=== PATIENT | male | born 1970 | race Caucasian/White ===

== ENCOUNTER 2023-05-18 16:05 | Emergency (ER) | payer OTHER, SELFPAY ==
[2023-05-18 16:12] VITALS: BP 130/102
[2023-05-18 16:44] LABS: % Basophils 0.8 % (0-2); % Eosinophils 3.6 % (0-6); % Immature Granulocytes 0.2 % (0-0.5); % Monocytes 7.7 % (1.7-9.3); % Neutrophils 69.7 % (42.2-75.2); Absolute Eosinophils 0.2 10^3/uL (0-0.7); Absolute Lymphocytes 0.9 10^3/uL (1.2-3.4); Absolute Monocytes 0.4 10^3/uL (0.1-0.6); Absolute Neutrophils 3.6 10^3/uL (1.4-6.5); Hematocrit 46.7 % (39.0-52.0); Hemoglobin 16.9 g/dL (13.0-18.0); Mean Corp Hgb Conc. 36.2 g/dL (33.0-37.0); Mean Corpuscular Hgb 29.6 pg (27.0-31.0); Mean Corpuscular Volume 81.9 fL (80.0-94.0); Nucleated Red Blood Cells % 0 % (-); Platelet Count 208 10^3/uL (130-400); White Blood Cell Count 5.2 10^3/uL (4.8-10.8)
[2023-05-18 16:57] LABS: ALT (SGPT) 77 U/L (0-50); AST (SGOT) 50 U/L (17-59); Albumin 4.6 g/dl (3.5-5.0); Alkaline Phosphatase 55 U/L (38-126); Blood Urea Nitrogen 19 mg/dl (9-20); Calcium 9.6 mg/dl (8.4-10.2); Carbon Dioxide 28 mmol/L (22-30); Chloride 104 mmol/L (98-107); Glucose 136 mg/dl (70-99); Lipase 56 U/L (23-300); Potassium 4.4 mmol/L (3.5-5.1); Sodium 137 mmol/L (135-145); Total Bilirubin 2.1 mg/dl (0.2-1.3); Total Protein 6.8 g/dl (6.3-8.2); eGFR > 60.00
[2023-05-18 17:04] LABS: Troponin I < 0.012 ng/ml
[2023-05-18 20:23] VITALS: BP 146/106
[2023-05-18] MEDS: NSS 1000 IV (20:37)
[2023-05-18 20:41] LABS: Urine Albumin Negative (Neg - Trace); Urine Bilirubin Negative (Negative); Urine Character Clear (Clear); Urine Color Amber; Urine Glucose Negative (Negative); Urine Ketone Trace (Negative); Urine Leukocyte Negative (Negative); Urine Nitrite Negative (Negative); Urine Occult Blood Negative (Negative); Urine Specific Gravity 1.025 (<1.030); Urine Urobilinogen Negative (Neg - 1+)
[2023-05-18 21:59] VITALS: BP 135/94
--- NOTE | 2023-05-18 23:57 | ED.GENMED ---
History of Present Illness
General
Chief Complaint: Fatigue
Source: patient
Exam Limitations: none
Time Seen by Provider: 05/18/23 20:11
Travel History
Have you had any contact with someone who has COVID-19?: No
Do you have any symptoms of coronavirus? Fever > 100 degrees, chills, cough, shortness of breath, sore throat, loss of taste or smell, muscle aches, or headache?: No
History of Present Illness
History of Present Illness:
Patient to ED with complaint of dizziness. States he was diagnosed with an ear infection last week. Placed on Cefdinir. Ear is better but now with dizziness. Denies headache or blurred vision. Denies fever/chills. No prior history of same.
Past History
Past History
ED Past Medical History: None
ED Past Surgical History: None
Review of Systems
Review of Systems
Allergies reviewed?: Yes
All Other Systems: ROS reviewed and negative except as documented in HPI and ROS
Constitutional: Reports no symptoms
EENT: Reports no symptoms
Respiratory: Reports no symptoms
Cardiac: Reports no symptoms
ABD/GI: Reports no symptoms
Musculoskeletal: Reports no symptoms
Skin: Reports no symptoms
Neurological: Reports dizzy
Psychiatric: Reports no symptoms
Phy Exam
General Physical Exam
General Presentation: well appearing and no apparent distress
General age: appears stated age
General Skin: warm and dry
General Habitus: normal
General Mental: alert
ENT Exam
ENT Exam: EOMI, TM's normal, pharynx normal, neck supple, normocephalic and swallowing well
Cardiovascular Exam
Cardiovascular Exam: regular rate/rhythm and no edema
Pulmonary Exam
Pulmonary Exam: lungs clear and no respiratory distress
Neurological Exam
Neurological Exam: alert, oriented x3, CN II-XII intact, no motor deficits, no sensory deficits, speech normal and normal gait
Musculoskeletal Exam
Musculoskeletal Exam: full ROM
Skin Exam
Skin Exam: normal color, warm/dry and no rash
Psychiatric Exam
Psychiatric Exam: normal mood/affect
Course
Orders/Labs/Results
Orders:
Orders
05/18/23 16:16
Electrocardiogram (*1) Urgent
Reason for Study: Vertigo / Dizzy
05/18/23 16:17
CT Head W/o Iv Contrast Urgent
Comment:
Reason For Exam: dizziness
EKG- Treatment ONCE
05/18/23 16:25
Complete Blood Count/With Diff Urgent
Comprehensive Metabolic Panel Urgent
Lipase Urgent
Troponin I Urgent
05/18/23 20:22
0.9% Sodium Chloride 1000 ml [Nss] 1,000 ml IV BOLUS
05/18/23 20:24
Urinalysis Reflex To Culture Urgent
Date Specimen was Collected: 05/18/23
Time Specimen was Collected: 16:17
US Abdomen Complete/Upper Urgent
Comment:
Reason For Exam: N/V/ELEVATED TBILI
Abnormal Lab Results
05/18/23 05/18/23
16:25 20:24
Absolute Lymphs (auto) 0.9 L 10^3/uL
(1.2-3.4)
Lymphocytes % 18.0 L %
(20.5-51.1)
Glucose 136 H mg/dl
(70-99)
Total Bilirubin 2.1 H mg/dl
(0.2-1.3)
ALT 77 H U/L
(0-50)
Urine Ketones Trace A
(Negative)
05/18/23 16:25
05/18/23 16:25
Vital Signs
Initial and Last Documented VS:
Initial Vital Signs
Temp Pulse Resp BP Pulse Ox
98.3 F 103 18 130/102 98
05/18/23 16:12 05/18/23 16:12 05/18/23 16:12 05/18/23 16:12 05/18/23 16:12
Last Documented Vital Signs
Temp Pulse Resp BP Pulse Ox
98.3 F 88 18 135/94 99
05/18/23 16:12 05/18/23 21:59 05/18/23 21:59 05/18/23 21:59 05/18/23 21:59
*Radiology
Radiology exam reviewed: radiology read reviewed
*Pulse Oximetry
Patient hypoxic: no
*Critical Care Note
Total Time (30-74mins, 75-104mins- exclusive of procedures): Not Applicable
ED Attending Note
-
Portions of this chart may have been created with voice recognition software.� Occasional wrong word or��sound alike� substitutions may have occurred due to the inherent limitations of voice recognition software.
Discharge Plan
Departure
Patient Disposition: Home (Routine Discharge)
Date of Disposition: 05/18/23
Time of Disposition: 21:59
Patient with high blood pressure during this ER visit?: No
Condition: Good
Covid-19: Not Applicable
Discharge Problem:
Sinusitis
Instructions: Sinusitis in adults
Prescriptions:
New
cefdinir 300 mg capsule
300 mg PO BID Qty: 10 0RF
triamcinolone acetonide [Nasacort] 55 mcg aerosol,spray
2 spray intranasal DAILY Qty: 16.9 0RF
Referrals:
NONE,* [Family Provider] -
Interventions
Interventions:
*Risk Screen - Suicide Last Done: 05/18/23 16:12
*General Assessment Last Done: 05/18/23 16:12
*Nursing Disposition Last Done: 05/18/23 22:21
Discharge Date and Time
Discharge Date/Time: 05/18/23 22:22
== END 2023-05-18 22:22 | disposition home or self-care (01) ==
LOC: EMR 16:05
PROVIDERS: EMERGENCY PHYSICIAN Emergency Medicine
DX: J32.9 Chronic sinusitis, unspecified (principal)
CPT/HCPCS: 99284; 96360; 70450; 76700; 80053; 81003; 83690; 84484; 85025; 93005

== ENCOUNTER 2023-05-31 15:02 | Inpatient (IN) | payer OTHER, SELFPAY ==
[2023-05-31] VITALS (13 sets, daily range): BP systolic 130–153; BP diastolic 79–116; BMI 39.4; BMI 38.3
--- NOTE | 2023-05-31 08:25 | ED.GENMED ---
History of Present Illness
<Consuelo Red PA-C - Last Filed: 05/31/23 15:42>
General
Chief Complaint: Weakness
Source: patient and family
Exam Limitations: none
Time Seen by Provider: 05/31/23 07:48
Nursing documentation reviewed up to this point in time: agreed with
Travel History
Have you had any contact with someone who has COVID-19?: No
Do you have any symptoms of coronavirus? Fever > 100 degrees, chills, cough, shortness of breath, sore throat, loss of taste or smell, muscle aches, or headache?: No
History of Present Illness
History of Present Illness:
52-year-old male with previously no medical problems presents for complicated ongoing issues associated with dizziness, poor balance and now right leg weakness
Patient says he traveled to and from [place] beginning of this month and by 3�6 [facility] complaints of bodyaches, feeling tired, dizziness and nausea and vomiting. At that time it sounds like they did some screening
labs and ultimately determined that he had otitis media and was given cefdinir and Zofran for vomiting. He had a follow-up on . He is really unable to recount the details between the and the to tell me whether he got much better or
continue to vomit, he did say that he had a lot of nausea and decreased appetite but does not believe that he had ongoing vomiting at that time. On the [facility] they document that he had orthostatic
hypotension and added meclizine and Medrol Dosepak. They told him that his EKG and labs looked okay. By 3�13 he came to this ER where he complained he was still having dizziness and fatigue. He never describes the dizziness as being a room
spinning sensation but that he feels off balance and it occurs when he changes position and gets up and is better when he is laying down. At that time he had labs and EKG and a head CT and an ultrasound of his upper abdomen. The labs show that his
total bilirubin was 2.1 and his ALT was slightly high so he had an ultrasound which showed gallstones, hepatic steatosis and splenomegaly. His head CT showed paranasal sinusitis and the patient was thus again placed on cefdinir and a steroid nasal
spray. He was told to follow-up with ENT which she did on 3�18 at [facility]. By that point he was using a cane to help him walk. Patient says that he did not actually recall when he started having leg weakness but his mom who is now here with
him says that he started using a cane when she dropped him off for that appointment because it was going to be a long way from the car to the office. With the cane he was able to still walk and looked okay doing it. At the ENT he had an evaluation
of his nasal passages and pharynx and was ultimately told to start a prednisone taper, 30 mg once a day for 4 days, 20 mg once a day for 4 days and 10 mg once a day for 4 days it has only been 8 days and the patient has no more prednisone in his
bottle and thus did not follow the instructions correctly. He believes he took his last 1 this today.
Within the last 3 or 4 days he really has noticed worsening progressive weakness in his right leg where his knee gives out and he feels like it is unable to support his weight. He actually fell 2 days ago and did hit his head but did not blackout.
His mom has been extremely worried about him. He is not been evaluated since the ENT office visit and today she went in to check on him at 4 AM and he really had no strength in his right leg. When she got him up to go to the bathroom this morning
he again fell. He had no injuries from his fall today. That is when they called 911. Patient has not had any urinary or bowel incontinence or retention, he has had no subjective fevers or chills, headache, double vision blurred vision, neck pain,
chest pain or shortness of breath, ongoing abdominal pain or persistent vomiting, paresthesias. Patient does not drink alcohol.
Past History
<Consuelo Red PA-C - Last Filed: 05/31/23 15:42>
Past History
ED Past Medical History: None
ED Past Surgical History: None
Social History
Tobacco: Non-smoker
Alcohol: None
Drug: None
Personal: Single
Living: with family
Employment: Employed
Review of Systems
<WILL Willard Last Filed: 05/31/23 15:42>
Review of Systems
Allergies reviewed?: Yes
All Other Systems: Not applicable
Phy Exam
<WILL Willard Last Filed: 05/31/23 15:42>
Physical Exam
Physical Exam:
GENERAL: Alert , in no apparent distress
HEAD: NCAT
EYE: pupils equal and reactive, no nystagmus, photophobia
NECK: Supple,full rom, nontender
ENT: o/p clr, dry mouth, tongue throat, geographic tongue
CARDIAC: Regular rate and rhythm . no edema
LUNGS: Clear breath sounds bilaterally, no acute respiratory distress, no wheezes/rales/rhonchi
ABDOMEN: Soft, without focal tenderness, no r/g, no cvat
NEUROLOGICAL: Alert and orientedx 4, cn intact, no facial asymmetry, upper extremity strength 4+ out of 5 symmetric, sensation intact, patient has a slight tremor with his left pointer finger with [id number] but has no past-pointing, his right
leg is 3 out of 5 strength proximally, 4+ out of 5 distally, he has 3+ symmetric brisk patellar reflexes
2+ brachial reflexes
Seems to have some truncal weakness holding himself seated back
back: Normal inspection nontender, sensation intact, negative straight leg raise
SKIN: Warm and dry, skin intact.
MUSCULOSKELETAL: No edema, well perfused.
PSYCH: Normal and appropriate interaction.
Course
<WILL Willard Last Filed: 05/31/23 15:42>
Orders/Labs/Results
Orders:
Orders
05/31/23
CR Thoracic Spine 3 Views Urgent
Reason For Exam: WEAKNESS
05/31/23 07:45
ECG [Electrocardiogram (*1)] Urgent
Reason for Study: Vertigo / Dizzy
EKG- Treatment ONCE
05/31/23 08:30
NEUROLOGY CONSULT Urgent
Consulting Provider: Joel Tovar
Was physician already notified: Yes
Bladder Scan- Treatment ONCE
05/31/23 09:01
MR Lumbar W/o & With Contrast Urgent
Comment:
Reason For Exam: ? transverse myelitis or stroke
Recent pill cam endoscopy?: No
MR Thoracic Spine W/o & With Urgent
Comment:
Reason For Exam: ? transverse myelitis or stroke
Recent pill cam endoscopy?: No
05/31/23 09:02
Add On- LAB Routine
Comments:: Please add to today's labs or draw as routine
Tests Added?: VIKAS, SPEP, Lyme, Immunoglobulins
05/31/23 09:03
Alcohol Urgent
Complete Blood Count/With Diff Urgent
Comprehensive Metabolic Panel Urgent
Lyme Progressive Urgent
Date Specimen was Collected: 05/31/23
Time Specimen was Collected: 09:03
Comment: ADDED LYME
PTT Urgent
Prothrombin Time Urgent
TSH Reflex To Free T4 Urgent
Vitamin B1, Whole Blood [S] Urgent
Vitamin B12 Urgent
05/31/23 09:30
Lumbar Spine, 2 or 3 View [CR Lumbar Spine 2 Or 3 Views] Stat
Comment:
Reason For Exam: ? transverse myelitis
05/31/23 11:00
VIKAS, IgG Reflex to HEp-2 [S] Routine
Protein Electrophoresis Reflex [S] Routine
05/31/23 12:45
Add On- LAB Routine
Comments:: Please add to today's labs or draw as routine
Tests Added?: VIKAS, anti-MOG antibodies, AQP4 antibodies, Lyme
05/31/23 12:49
MR Brain W/o & With Contrast Routine
Comment:
Reason For Exam: ? MS
Recent pill cam endoscopy?: No
05/31/23 12:50
MR Cervical Spine Without & W Routine
Comment:
Reason For Exam: ? MS or TMyelitis
Recent pill cam endoscopy?: No
05/31/23 13:04
Add On- LAB Routine
Comments:: Please add to today's labs or draw as routine
Tests Added?: INR, PTT
IRAD CONSULT Routine
Consulting Provider: Ayan Rodney
Was physician already notified: Yes
Reason for consult: LP for ? MS
Comment: attempt unsuccessful by neurology
05/31/23 13:07
IRAD Cytology Routine
Date Specimen was Collected: 05/31/23
Time Specimen was Collected: 13:51
Source: CSF
Clinical Impression: Lymphoma
05/31/23 13:16
Lorazepam [Ativan] 0.5 mg IV NOW STA
05/31/23 13:26
Bladder Scan As Directed
Follow Bladder Retention/Intermittent Cath Algorithm?: No
Comment: post void x1
05/31/23 13:30
MethylPREDNISolone. [Solu-Medrol] 1,000 mg 0.9% Sodium Chloride 250 ml [Nss] 250 ml IV Q24H
05/31/23 13:54
Acid Fast Culture & Smear Urgent
LUAN Source: Csf
Specimen Description:
Date Specimen was Collected: 05/31/23
Time Specimen was Collected: 13:48
CSF Cell Count Urgent
Date Specimen was Collected: 05/31/23
Time Specimen was Collected: 13:49
CSF Tube Number: 3
CSF Cell Count X Urgent
Date Specimen was Collected: 05/31/23
Time Specimen was Collected: 13:49
CSF Tube Number: 4
CSF VDRL Reflex To Titer [S] Urgent
Date Specimen was Collected: 05/31/23
Time Specimen was Collected: 13:50
CSF Tube Number: 4
Lyme PCR, DNA [S] Urgent
Myelin Basic Protein, CSF [S] Urgent
Date Specimen was Collected: 05/31/23
Time Specimen was Collected: 13:51
Oligoclonal Band Profile [S] Urgent
Date Specimen was Collected: 05/31/23
Time Specimen was Collected: 13:51
Spinal Fluid Glucose Urgent
Date Specimen was Collected: 05/31/23
Time Specimen was Collected: 13:51
CSF Tube Number: 2
Spinal Fluid Protein Urgent
Date Specimen was Collected: 05/31/23
Time Specimen was Collected: 13:52
CSF Tube Number: 2
CSF Culture with Gram Stain Urgent
LUAN Source: Csf
Specimen Description:
Date Specimen was Collected: 05/31/23
Time Specimen was Collected: 13:50
# of Tube: 3
Fungus Culture Urgent
LUAN Source: Csf
Specimen Description:
Date Specimen was Collected: 05/31/23
Time Specimen was Collected: 13:50
Meningitis Panel, CSF by PCR Urgent
LUAN Source: Csf
Specimen Description:
05/31/23 14:42
Admit/Transfer Patient As Directed
Co-Sign Provider:
Level of Care: Inpatient admission
Assign to:: Medical/Surgical
Physician / Group: Erasmo Deleon
Diagnosis: Right Lower Extremity Weakness
Reason for Hospitalization: As above
Expected length of stay greater than two midnights?: Yes
ELOS- Estimated Length of Stay in days: 3
I certify the patient meets the requirements for IP care: Yes
05/31/23 14:44
Code Status As Directed
Resuscitation Status: Full Code
Abnormal Lab Results
05/31/23 05/31/23
09:03 13:54
Abs Immat Gran (auto) 0.1 H 10^3/uL
(0-0.05)
Absolute Lymphs (auto) 0.7 L 10^3/uL
(1.2-3.4)
Immature Gran % 0.8 H %
(0-0.5)
Neutrophils % 79.5 H %
(42.2-75.2)
Lymphocytes % 10.2 L %
(20.5-51.1)
Sodium 134 L mmol/L
(135-145)
BUN 23 H mg/dl
(9-20)
Glucose 111 H mg/dl
(70-99)
Total Bilirubin 1.9 H mg/dl
(0.2-1.3)
ALT 75 H U/L
(0-50)
Total Protein 5.7 L g/dl
(6.3-8.2)
CSF WBC 10 H* mm^3
(0-5)
CSF Glucose 72 H mg/dl
(40-70)
CSF Total Protein 123 H mg/dl
(12-60)
05/31/23 09:03
05/31/23 09:03
Vital Signs
Initial and Last Documented VS:
Initial Vital Signs
Pulse Resp BP Pulse Ox
86 16 153/107 98
05/31/23 07:39 05/31/23 07:39 05/31/23 07:39 05/31/23 07:39
Last Documented Vital Signs
Temp Pulse Resp BP Pulse Ox
98.1 F 70 14 130/116 98
05/31/23 07:51 05/31/23 15:00 05/31/23 15:00 05/31/23 15:00 05/31/23 15:00
<Malika Cortez MD - Last Filed: 05/31/23 13:55>
Orders/Labs/Results
Orders:
Orders
05/31/23
CR Thoracic Spine 3 Views Urgent
Reason For Exam: WEAKNESS
05/31/23 07:45
ECG [Electrocardiogram (*1)] Urgent
Reason for Study: Vertigo / Dizzy
EKG- Treatment ONCE
05/31/23 08:30
NEUROLOGY CONSULT Urgent
Consulting Provider: Joel Tovar
Was physician already notified: Yes
Bladder Scan- Treatment ONCE
05/31/23 09:01
MR Lumbar W/o & With Contrast Urgent
Comment:
Reason For Exam: ? transverse myelitis or stroke
Recent pill cam endoscopy?: No
MR Thoracic Spine W/o & With Urgent
Comment:
Reason For Exam: ? transverse myelitis or stroke
Recent pill cam endoscopy?: No
05/31/23 09:02
Add On- LAB Routine
Comments:: Please add to today's labs or draw as routine
Tests Added?: VIKAS, SPEP, Lyme, Immunoglobulins
05/31/23 09:03
Alcohol Urgent
Complete Blood Count/With Diff Urgent
Comprehensive Metabolic Panel Urgent
Lyme Progressive Urgent
Date Specimen was Collected: 05/31/23
Time Specimen was Collected: 09:03
Comment: ADDED LYME
PTT Urgent
Prothrombin Time Urgent
TSH Reflex To Free T4 Urgent
Vitamin B1, Whole Blood [S] Urgent
Vitamin B12 Urgent
05/31/23 09:30
Lumbar Spine, 2 or 3 View [CR Lumbar Spine 2 Or 3 Views] Stat
Comment:
Reason For Exam: ? transverse myelitis
05/31/23 11:00
VIKAS, IgG Reflex to HEp-2 [S] Routine
Protein Electrophoresis Reflex [S] Routine
05/31/23 12:45
Add On- LAB Routine
Comments:: Please add to today's labs or draw as routine
Tests Added?: VIKAS, anti-MOG antibodies, AQP4 antibodies, Lyme
05/31/23 12:49
MR Brain W/o & With Contrast Routine
Comment:
Reason For Exam: ? MS
Recent pill cam endoscopy?: No
05/31/23 12:50
MR Cervical Spine Without & W Routine
Comment:
Reason For Exam: ? MS or TMyelitis
Recent pill cam endoscopy?: No
05/31/23 13:04
Add On- LAB Routine
Comments:: Please add to today's labs or draw as routine
Tests Added?: INR, PTT
IRAD CONSULT Routine
Consulting Provider: Ayan Rodney
Was physician already notified: Yes
Reason for consult: LP for ? MS
Comment: attempt unsuccessful by neurology
05/31/23 13:07
IRAD Cytology Routine
Date Specimen was Collected: 05/31/23
Time Specimen was Collected: 13:51
Source: CSF
Clinical Impression: Lymphoma
05/31/23 13:16
Lorazepam [Ativan] 0.5 mg IV NOW STA
05/31/23 13:26
Bladder Scan As Directed
Follow Bladder Retention/Intermittent Cath Algorithm?: No
Comment: post void x1
05/31/23 13:30
MethylPREDNISolone. [Solu-Medrol] 1,000 mg 0.9% Sodium Chloride 250 ml [Nss] 250 ml IV Q24H
05/31/23 13:54
Acid Fast Culture & Smear Urgent
LUAN Source: Csf
Specimen Description:
Date Specimen was Collected: 05/31/23
Time Specimen was Collected: 13:48
CSF Cell Count Urgent
Date Specimen was Collected: 05/31/23
Time Specimen was Collected: 13:49
CSF Tube Number: 3
CSF Cell Count X Urgent
Date Specimen was Collected: 05/31/23
Time Specimen was Collected: 13:49
CSF Tube Number: 4
CSF VDRL Reflex To Titer [S] Urgent
Date Specimen was Collected: 05/31/23
Time Specimen was Collected: 13:50
CSF Tube Number: 4
Lyme PCR, DNA [S] Urgent
Myelin Basic Protein, CSF [S] Urgent
Date Specimen was Collected: 05/31/23
Time Specimen was Collected: 13:51
Oligoclonal Band Profile [S] Urgent
Date Specimen was Collected: 05/31/23
Time Specimen was Collected: 13:51
Spinal Fluid Glucose Urgent
Date Specimen was Collected: 05/31/23
Time Specimen was Collected: 13:51
CSF Tube Number: 2
Spinal Fluid Protein Urgent
Date Specimen was Collected: 05/31/23
Time Specimen was Collected: 13:52
CSF Tube Number: 2
CSF Culture with Gram Stain Urgent
LUAN Source: Csf
Specimen Description:
Date Specimen was Collected: 05/31/23
Time Specimen was Collected: 13:50
# of Tube: 3
Fungus Culture Urgent
LUAN Source: Csf
Specimen Description:
Date Specimen was Collected: 05/31/23
Time Specimen was Collected: 13:50
Meningitis Panel, CSF by PCR Urgent
LUAN Source: Csf
Specimen Description:
05/31/23 14:42
Admit/Transfer Patient As Directed
Co-Sign Provider:
Level of Care: Inpatient admission
Assign to:: Medical/Surgical
Physician / Group: Erasmo Deleon
Diagnosis: Right Lower Extremity Weakness
Reason for Hospitalization: As above
Expected length of stay greater than two midnights?: Yes
ELOS- Estimated Length of Stay in days: 3
I certify the patient meets the requirements for IP care: Yes
05/31/23 14:44
Code Status As Directed
Resuscitation Status: Full Code
Abnormal Lab Results
05/31/23 05/31/23
09:03 13:54
Abs Immat Gran (auto) 0.1 H 10^3/uL
(0-0.05)
Absolute Lymphs (auto) 0.7 L 10^3/uL
(1.2-3.4)
Immature Gran % 0.8 H %
(0-0.5)
Neutrophils % 79.5 H %
(42.2-75.2)
Lymphocytes % 10.2 L %
(20.5-51.1)
Sodium 134 L mmol/L
(135-145)
BUN 23 H mg/dl
(9-20)
Glucose 111 H mg/dl
(70-99)
Total Bilirubin 1.9 H mg/dl
(0.2-1.3)
ALT 75 H U/L
(0-50)
Total Protein 5.7 L g/dl
(6.3-8.2)
CSF WBC 10 H* mm^3
(0-5)
CSF Glucose 72 H mg/dl
(40-70)
CSF Total Protein 123 H mg/dl
(12-60)
05/31/23 09:03
05/31/23 09:03
Vital Signs
Initial and Last Documented VS:
Initial Vital Signs
Pulse Resp BP Pulse Ox
86 16 153/107 98
05/31/23 07:39 05/31/23 07:39 05/31/23 07:39 05/31/23 07:39
Last Documented Vital Signs
Temp Pulse Resp BP Pulse Ox
98.1 F 70 14 130/116 98
05/31/23 07:51 05/31/23 15:00 05/31/23 15:00 05/31/23 15:00 05/31/23 15:00
<Malika Cortez MD - Last Filed: 05/31/23 13:55>
Lumbar Puncture
Indication for procedure:: weakness
Procedure completed by: Malika cortez MD
Consent form signed: Yes
Anesthesia/sedation: 1% Lidocaine
Preparation: cleaned with Betadine
Position: sitting
Needle Size: 20 gauge
Needle Type: Lumbar Needle
Number of attempts: 1
Dressing applied to puncture site: bandaid
Complications: none
Additional information:
csf ordered as per neuro.
<Consuelo Red PA-C - Last Filed: 05/31/23 15:42>
MDM/Problems Addressed
Differential Diagnosis Includes:
Transverse myelitis, stroke Lyme disease, autoimmune demyelinating condition
MDM/Problems Addressed:
52 y/o M no prev medical problems here with R leg weakness for several days to weeks; started iniitally with dizziness but the weakness was more insidious up until a few days ago; pt now unable to walk; seen by neuro, who ordered MR of thoracic and
lumbar spine imaging
labs are relatively unremarkable
ultimately w/u looks suspicious for MS or equivalent based on MR thoracic findings; dr. tovar is ordering steroids and requested that the patient have LP
LP performed by dr. cortez
admit to hospitalist.
<Consuelo Red PA-C - Last Filed: 05/31/23 15:42>
*Critical Care Note
Total Time (30-74mins, 75-104mins- exclusive of procedures): Not Applicable
ED Attending Note
<Consuelo Red PA-C - Last Filed: 05/31/23 15:42>
-
Portions of this chart may have been created with voice recognition software.� Occasional wrong word or��sound alike� substitutions may have occurred due to the inherent limitations of voice recognition software.
<Malika Cortez MD - Last Filed: 05/31/23 13:55>
ED Attending Note
Patient seen and examined by attending physician: Yes
I performed the substantive portion of visit, reviewed & personally made and approve the management plan that is documented in note by myself or ALFA.: Yes
ED Attending Note:
52-year-old male who generally has not been feeling well for at least 3 weeks if not a month associated with balance difficulties, lightheadedness, and over the last 3 days, right leg weakness. Patient noted to be weak in the right lower extremity
with hyperreflexia patellar. Neuroevaluation, MRI of the spine suggestive of a variety of differentials including MS, Lyme, etc. At neurology recommendation, LP performed, results pending, likely steroids. Admit to hospitalist with close
continued eval.
Discharge Plan
Departure
Patient Disposition: Admit
Date of Disposition: 05/31/23
Time of Disposition: 13:01
Admit to: Med/Surg
Presentation/result/management discussed w/ accepting MD/DO: Hospitalist
Condition: Fair
Covid-19: Not Applicable
Discharge Problem:
Weakness
Interventions
Interventions:
*Risk Screen - Suicide Last Done: 05/31/23 07:57
*General Assessment Last Done: 05/31/23 08:15
*Neglect/Abuse Screening Last Done: 05/31/23 07:57
ED- Fall Risk Assessment Last Done: 05/31/23 07:57
*ED COVID-19 Vaccine History Last Done: 05/31/23 07:57
ED- Cardiac Assessment Last Done: 05/31/23 07:54
ED- Neurological Assessment Last Done: 05/31/23 08:15
ED- Pulmonary Assessment Last Done: 05/31/23 08:15
[2023-05-31 09:26] LABS: % Basophils 0.2 % (0-2); % Eosinophils 1.4 % (0-6); % Immature Granulocytes 0.8 % (0-0.5); % Lymphocytes 10.2 % (20.5-51.1); % Monocytes 7.9 % (1.7-9.3); % Neutrophils 79.5 % (42.2-75.2); Absolute Eosinophils 0.1 10^3/uL (0-0.7); Absolute Immature Granulocytes 0.1 10^3/uL (0-0.05); Absolute Lymphocytes 0.7 10^3/uL (1.2-3.4); Absolute Monocytes 0.5 10^3/uL (0.1-0.6); Absolute Neutrophils 5.1 10^3/uL (1.4-6.5); Hematocrit 42.6 % (39.0-52.0); Hemoglobin 15.6 g/dL (13.0-18.0); Mean Corp Hgb Conc. 36.6 g/dL (33.0-37.0); Mean Corpuscular Hgb 30.4 pg (27.0-31.0); Mean Corpuscular Volume 82.9 fL (80.0-94.0); Nucleated Red Blood Cells % 0 % (-); Platelet Count 144 10^3/uL (130-400); Red Blood Cell Count 5.14 10^6/uL (4.70-6.10); Red Cell Dist. Width 13.1 % (11.5-14.5); White Blood Cell Count 6.5 10^3/uL (4.8-10.8)
[2023-05-31 09:48] LABS: INR 1.05; PT 13.5 Sec (11.4-14.6)
[2023-05-31 09:49] LABS: APTT 24.9 Sec (23.4-35.0)
[2023-05-31 10:00] LABS: ALT (SGPT) 75 U/L (0-50); AST (SGOT) 32 U/L (17-59); Albumin 3.7 g/dl (3.5-5.0); Alkaline Phosphatase 70 U/L (38-126); Blood Urea Nitrogen 23 mg/dl (9-20); Calcium 9.3 mg/dl (8.4-10.2); Carbon Dioxide 24 mmol/L (22-30); Chloride 104 mmol/L (98-107); Estimated Creatinine Clearance > 125 ml/min; Glucose 111 mg/dl (70-99); Potassium 3.8 mmol/L (3.5-5.1); Sodium 134 mmol/L (135-145); Total Bilirubin 1.9 mg/dl (0.2-1.3); Total Protein 5.7 g/dl (6.3-8.2); eGFR > 60.00
[2023-05-31 10:01] LABS: Alcohol None Detected
--- NOTE | 2023-05-31 12:25 | CON.NEURO4 ---
Addendum entered and electronically signed by Joel Tovar MD 05/31/23 13:33:
Studies reviewed.
I have personally examined the patient. I reviewed and agree with the HAND SURGEON's Note.
My addenda:
Awake, alert, interactive. No acute distress.
Speech intact.
Follows 2-step requests w/o difficulty. No tremor.
Extra-ocular movements grossly intact.
Facial movements full and symmetric. Hearing intact to normal conversational volume.
Normal UE movements bilaterally. Right lower extremity weakness 4 out of 5 proximally greater than distally
Neck: full ROM.
Chest: no dyspnea
Heart: no JVD
Ext: (-) Clubbing, (-) Cyanosis, (-) Edema
IMPRESSIONS/RECOMMENDATIONS:
Abrupt onset of Right lower extremity weakness
Given that symptomatology began with a sense of dizziness and generalized bodyaches, infectious etiology, inflammatory etiology, vascular etiologies cannot be eliminated at this time
Subsequently, following the urgent MRI of his thoracic and lumbar spines, the differential is now transverse myelitis of unclear etiology with the possibility of multiple sclerosis, MOGAD, NMOSD, or infectious etiologies, or other inflammatory
etiologies
Check lumbar puncture
Check additional labs for potential etiology
Start methylprednisolone 1 g IV for the following 5 days
Check MRI of brain as well as MRI of cervical spine now that MRIs of thoracic and lumbar spines with and without contrast are complete
Follow postvoid residuals For urinary function
Rehab evaluations
D/W patient / family / nursing
All questions answered.
Will continue to follow patient.
Original Note:
Documented by User: ADDIS Farfan 05/31/23 13:05
Consultation - Neurology 4
-
CONSULTING PHYSICIAN: Dr. Tovar
REFERRING PHYSICIAN: Consuelo Red
DICTATED BY: ADDIS Farfan
DATE/TIME OF REQUEST: 05/31/2023 0800
DATE/TIME OF CONSULTATION: 05/31/2023 0830
Reason for Consultation: Right lower extremity weakness, dizziness
History of Present Illness:
This is a 52-year-old male patient reports no significant medical history who presents to the ER today 05/31/2023 after a fall this morning and noted no strength in his right lower extremity prompting need for 911. He reports symptoms started after
he came home from [place] on 05/06/2023, both he and his mom had body aches and felt unwell. Following day 05/07/2023 he started with significant dizziness. He went to see urgent care 05/11/2023, and was thought to have otitis media and was given
antibiotics (cefdinir) and Zofran. He returned on 05/16/2023 for persistent symptoms and at that time they also diagnosed him with orthostatic hypotension and added meclizine and a Medrol Dosepak. He had an EKG and labs which she reports were
unremarkable. He reports significant balance difficulty starting on 05/18/2023 at that time he was seen at the [facility]. He had labs, EKG, head CT and an ultrasound of his upper abdomen.� The labs show that his total bilirubin was 2.1 and his
ALT was slightly high so he had an ultrasound which showed gallstones, hepatic steatosis and splenomegaly.� His head CT showed paranasal sinusitis. Diagnosis at that time was sinusitis and triamcinolone acetonide was added to regimen. On 05/23/2023
went to see ENT [facility] in [place]-because he had increased difficulty with balance he started using a cane. He was started on oral prednisone and after 1 day of steroid he did feel better however, the following day felt worse. This past
weekend he noted right sided weakness and started with falls-falling to the right. He states he has at least 3 falls. The last this am. He denies any neck or back pain. He does feel his speech is slurred speech upon waking today. He denies
dizziness as being a room spinning sensation but that he feels off balance and it occurs when he changes position and gets up and is better when he is laying down. He has not had any urinary or bowel incontinence or retention, he has had no
subjective fevers or chills, headache, double vision blurred vision, neck pain, chest pain or shortness of breath, ongoing abdominal pain or persistent vomiting, paresthesias.� He does not drink alcohol.
Past History
ED Past Medical History: None
ED Past Surgical History: None
Social History
Tobacco: Non-smoker
Alcohol: None
Drug: None
Personal: Single
Living: with family
Employment: Employed
Allergies: see below
Home Medications: see below
Review of Symptoms:
Patient denies any fever, headache, chest pain, or shortness of breath
�
Vital Signs: see below
Physical Exam:
The patient is afebrile, heart sounds S1 and S2 are (regular / irregular), and chest is clear to auscultation bilaterally. .
Neurologic Examination:
The patient is awake, alert and oriented x 3. He is able to follow commands and answer questions appropriately. There is no aphasia or dysarthria. On cranial nerve assessment, pupils are 3 mm bilateral, round and reactive to light and
accommodation. Visual owen are full. Extraocular movements are intact. Facial sensations are intact and bilaterally symmetrical, there is no facial asymmetry. Hearing is intact bilaterally to normal conversation volume. Tongue palate and uvula are
midline. Sternocleidomastoid strengths are full bilaterally. Motor strengths are 5/5 bilateral upper extremities and 4/5 RLE, R dorsiflexion 4/5, R plantar flexion 5/5, 4+/5 LLE, L dorsiflexion 5/5, L plantar flexion 5/5, on medical research
[place] scale. There is no drift or involuntary movement noted. Deep tendon reflexes are 3+ bilateral upper and lower extremities and Babinski is absent bilaterally. Sensations of pain is reduced at T6 level, light touch is intact, temperature and
vibration are reduced RLE. There was no extinction noted on double simultaneous stimulation. Coordination is intact by finger to nose bilaterally.
Lab Results:see below
Neuro Imaging: pending
Impression:
GRETCHEN BARON is a 52 year old M who has presented to the hospital with right lower extremity weakness and persistent dizziness.
Differentials for the patient's presentation include:
Transverse myelitis
multiple sclerosis
not likely spinal infarct after review of MRI thoracic and lumbar studies
Recommendations:
-STAT MRI thoracic and lumbar spine with and without contrast-reviewed ? Brain multifocal transverse myelitis
-will need MRI brain and cervical spine with and without contrast
-will start 1 gram methylprednisone, will need 5 doses
-will order additional labs for additional metabolic causes
-may need to consider Lumbar puncture
-PT/OT and speech evaluations
-DVT prophylaxis
Discussed with patient, mom, ER staff and Dr. Tovar
Medication and Allergies
Home Medications
Home Medications
Medication Instructions Recorded
cefdinir 300 mg capsule 300 mg PO BID #10 caps 05/18/23
triamcinolone acetonide 55 mcg 2 spray intranasal DAILY #16.9 mL 05/18/23
nasal spray aerosol (Nasacort)
Allergies
Allergies
Allergy/AdvReac Type Severity Reaction Status Date / Time
No Known Allergies Allergy Unverified 05/18/23 16:12
Vital Signs and Labs
-
Vital Signs and Labs:
Vital Signs
Temp Pulse Resp BP Pulse Ox
98.1 F 66 18 132/88 96
05/31/23 07:51 05/31/23 10:29 05/31/23 10:29 05/31/23 10:29 05/31/23 10:30
Lab Results
05/31/23 09:03
05/31/23 09:03
PT 13.5 Sec (11.4-14.6) 05/31/23 09:03
INR 1.05 05/31/23 09:03
APTT 24.9 Sec (23.4-35.0) 05/31/23 09:03
Sodium 134 mmol/L (135-145) L 05/31/23 09:03
Potassium 3.8 mmol/L (3.5-5.1) 05/31/23 09:03
BUN 23 mg/dl (9-20) H 05/31/23 09:03
Glucose 111 mg/dl (70-99) H 05/31/23 09:03
Calcium 9.3 mg/dl (8.4-10.2) 05/31/23 09:03

Documented by User: Joel Tovar MD 05/31/23 13:26
Consultation - Neurology 4
-
CONSULTING PHYSICIAN: Dr. Tovar
REFERRING PHYSICIAN: Consuelo Red
DICTATED BY: ADDIS Farfan
DATE/TIME OF REQUEST: 05/31/2023 0800
DATE/TIME OF CONSULTATION: 05/31/2023 0830
Reason for Consultation: Right lower extremity weakness, dizziness
History of Present Illness:
This is a 52-year-old male patient reports no significant medical history who presents to the ER today 05/31/2023 after a fall this morning and noted no strength in his right lower extremity prompting need for 911. He reports symptoms started after
he came home from [place] on 05/06/2023, both he and his mom had body aches and felt unwell. Following day 05/07/2023 he started with significant dizziness. He went to see urgent care 05/11/2023, and was thought to have otitis media and was given
antibiotics (cefdinir) and Zofran. He returned on 05/16/2023 for persistent symptoms and at that time they also diagnosed him with orthostatic hypotension and added meclizine and a Medrol Dosepak. He had an EKG and labs which she reports were
unremarkable. He reports significant balance difficulty starting on 05/18/2023 at that time he was seen at the [facility]. He had labs, EKG, head CT and an ultrasound of his upper abdomen.� The labs show that his total bilirubin was 2.1 and his
ALT was slightly high so he had an ultrasound which showed gallstones, hepatic steatosis and splenomegaly.� His head CT showed paranasal sinusitis. Diagnosis at that time was sinusitis and triamcinolone acetonide was added to regimen. On 05/23/2023
went to see ENT [facility] in [place]-because he had increased difficulty with balance he started using a cane. He was started on oral prednisone and after 1 day of steroid he did feel better however, the following day felt worse. This past
weekend he noted right sided weakness and started with falls-falling to the right. He states he has at least 3 falls. The last this am. He denies any neck or back pain. He does feel his speech is slurred speech upon waking today. He denies
dizziness as being a room spinning sensation but that he feels off balance and it occurs when he changes position and gets up and is better when he is laying down. He has not had any urinary or bowel incontinence or retention, he has had no
subjective fevers or chills, headache, double vision blurred vision, neck pain, chest pain or shortness of breath, ongoing abdominal pain or persistent vomiting, paresthesias.� He does not drink alcohol.
Past History
ED Past Medical History: None
ED Past Surgical History: None
Social History
Tobacco: Non-smoker
Alcohol: None
Drug: None
Personal: Single
Living: with family
Employment: Employed
Allergies: see below
Home Medications: see below
Review of Symptoms:
Patient denies any fever, headache, chest pain, or shortness of breath
�
Vital Signs: see below
Physical Exam:
The patient is afebrile
Neurologic Examination:
The patient is awake, alert and oriented x 3. He is able to follow commands and answer questions appropriately. There is no aphasia or dysarthria. On cranial nerve assessment, pupils are 3 mm bilateral, round and reactive to light and
accommodation. Visual owen are full. Extraocular movements are intact. Facial sensations are intact and bilaterally symmetrical, there is no facial asymmetry. Hearing is intact bilaterally to normal conversation volume. Tongue palate and uvula are
midline. Sternocleidomastoid strengths are full bilaterally. Motor strengths are 5/5 bilateral upper extremities and 4/5 RLE, R dorsiflexion 4/5, R plantar flexion 5/5, 4+/5 LLE, L dorsiflexion 5/5, L plantar flexion 5/5, on medical research
[place] scale. There is no drift or involuntary movement noted. Deep tendon reflexes are 3+ bilateral upper and lower extremities and Babinski is absent bilaterally. Sensations of pain is reduced at T6 level, light touch is intact, temperature and
vibration are reduced RLE. There was no extinction noted on double simultaneous stimulation. Coordination is intact by finger to nose bilaterally.
Lab Results:see below
Neuro Imaging: pending
Impression:
GRETCHEN BARON is a 52 year old M who has presented to the hospital with right lower extremity weakness and persistent dizziness.
Differentials for the patient's presentation include:
Transverse myelitis
multiple sclerosis
not likely spinal infarct after review of MRI thoracic and lumbar studies
Recommendations:
-STAT MRI thoracic and lumbar spine with and without contrast-reviewed ? Brain multifocal transverse myelitis
-will need MRI brain and cervical spine with and without contrast
-will start 1 gram methylprednisone, will need 5 doses
-will order additional labs for additional metabolic causes
-may need to consider Lumbar puncture
-PT/OT and speech evaluations
-DVT prophylaxis
Discussed with patient, mom, ER staff and Dr. Tovar
[2023-05-31] MEDS: ATIVAN 0.5 MG IV (13:22)
[2023-05-31] MEDS: SOLU-MEDROL 258 MG IV (13:28)
[2023-05-31 13:56] LABS: Vitamin B12 387 pg/ml (239-931)
[2023-05-31 14:22] LABS: CSF Clarity Clear; CSF Color Colorless; CSF Tube # 4; Red Cell Count/CSF 74 mm^3; White Cell Count/CSF 1 mm^3 (0-5)
[2023-05-31 14:23] LABS: CSF Color Red; CSF Tube # 1; CSF Tube # Clarity Hazy; Red Cell Count/CSF 9 mm^3
[2023-05-31 14:24] LABS: White Blood Cell Count/CSF 10 mm^3 (0-5)
[2023-05-31 14:28] LABS: Spinal Fluid Glucose 72 mg/dl (40-70); Spinal Fluid Protein 123 mg/dl (12-60)
[2023-05-31 14:39] LABS: CSF Granulocytes 64 %; CSF Lymphocytes 27 %; Spinal Fluid Macrophages 9 %
[2023-05-31] MEDS: NSS 1000 IV (16:13)
[2023-05-31] MEDS: LOVENOX 40 MG SC (17:27)
--- NOTE | 2023-05-31 17:35 | PTCARENOTE ---
Arrived to unit from ED, pt stood and pivoted with assistance to bed. AAOx3. Oriented to room. Call lamb within reach. Instructed patient to ring for assistance when getting out of bed.
--- NOTE | 2023-05-31 18:19 | HPS.HSE ---
Addendum entered and electronically signed by Erasmo Deleon MD 05/31/23 21:44:
Attending Addendum-
I performed a history and physical exam of the patient and discussed his management with the resident. I reviewed the resident's note and agree with the documented findings and plan of care. Patient presents with 3 week history of dizziness which
progressively got worse leading to extreme RLE weakness. had 2 urgent care visits, 1 ED visit, and new PCP visit, thought presumably to otitis media and sinusitis. given abx and steroids. No vision changes, Patient had fall this am and was only able
to crawl around home due to weakness. Had recent trip to [place]. Currently feels weak and not himself. Denies improvement s/p IV steroids. Full 12 point ROS reviewed and negative except as documented Exam: GEN NAD heart RRR lungs clear and soft LE
trace b/l edema Neuro AAO x 3 MS 4/5 RLE 5/5 LUE LLE RUE sensation intact patellar reflexes 2+, PEERLA, neg babinski neck supple Plan:
# RLE Weakness- c/s neuro in ED, check [facility] MRI brain and spine, check LP, labs, start high dose IV steroids x 5 days. check labs in am r/o multiple etiologies with infectious history possibly TM, PT OT monitor for respiratory compromise
# Hyponatremia- from volume depletion start IVF, repeat BMP in am
# Dehydration- start IVF repeat BMP in am
# DVT proph- lovenox
Time spent coordinating care, review of plan of care with resident, review of records, med rec, consults, notes, labs, rads, d/w nursing, family - 75 mins
Original Note:
Family Physician
-
Family Physician: * NONE
Chief Complaint
-
Dizziness and right lower extremity weakness
History of Present Illness
This is a 52-year-old male with no significant medical history who presents to ED today due to dizziness and right lower extremity weakness prompting a fall this morning. He noted no strength in right lower extremity prompting need for emergency
services. Patient reports symptoms of right lower extremity started when he came home from [place] on 05/06/2023. He reports he started experiencing dizziness and fatigue and bodyaches. He traveled to [place] with his mother, and his mother was
experiencing the same symptoms at that time which which resolved after a few days. He went to the urgent care 05/11/2023 and he was told that he had otitis media and was. Given antibiotics cefdinir and Zofran he returned back to the urgent care
05/16/2023 for persistent symptoms and they diagnosed him with orthostatic hypotension and meclizine was added to his medication regimen. Symptoms continue to significantly worsen and she presented to ER 05/18/2023 for evaluation. At that time
labs, EKG, and CT scan, ultrasound of the abdomen was done. Labs at that time showed total bilirubin was 2.1 and ALT was high. Ultrasound at that time showed gallstones, hepatic steatosis and splenomegaly. Head CT at that time showed purulent
nasal sinusitis, triamcinolone acetamide was added to his regimen. He followed up with ENT pain medicine because he was having difficulty with balancing and he was started on oral prednisone taper. He reports he took 1 dose and symptoms started to
improve. However this weekend, reports he continues to experience dizziness, reports he does not feel like the room is spinning. he noted significant right-sided weakness and started having falls, falling to the right side. He has had a total of 3
falls, one of them this morning, and he did not hit his head on the floor. Hence came to the ED for evaluation. He denies neck pain, he denies back pain, he denies any urinary or bowel incontinence or retention, he has had no fevers, he has had no
chills, has had no headaches, he has had no double vision, he has had no blurred vision, he has had no neck pain, he has had no chest pain, no shortness of breath, he has had no abdominal pain, he has had no persistent vomiting, has had no diarrhea,
has had no rash.
Medical History
Past Medical History
Past Medical History: Reports None
Past Surgical History: Reports None
Social History
Tobacco: Non-smoker
Alcohol: None
Drug: None
Personal: Single
Living: With Family
Employment: Employed
Family History
Family History: Not pertinent
Allergies / Home Medications
Allergies reflects when Allergies were last updated in [facility].
Home Medications with original date entered in [facility]
Allergy/Medication List:
Allergies
Allergy/AdvReac Type Severity Reaction Status Date / Time
No Known Allergies Allergy Unverified 05/18/23 16:12
Home Medications
cholecalciferol (vitamin D3) 25 mcg (1,000 unit) chewable tablet (Vitamin D3) 25 mcg PO DAILY 05/31/23
multivitamin with minerals-folic acid 80 mcg chewable tablet 1 tab PO DAILY 05/31/23
Review of Systems
-
A 12 point ROS was completed and negative except as noted: Yes
Constitutional: Reports Other (Reports dizziness)
EENT: Reports No Symptoms
Respiratory: Reports No Symptoms
Cardiac: Reports No Symptoms
Abdomen/GI: Reports No Symptoms
: Reports No Symptoms
Musculoskeletal: Reports No Symptoms
Skin: Reports No Symptoms
Neurological: Reports Other (Reports right lower extremity weakness)
Psych: Reports No Symptoms
Physical Exam
Vital Signs
Vital Signs
Temp Pulse Resp BP Pulse Ox
97.9 F 91 18 138/84 95
05/31/23 16:30 05/31/23 16:30 05/31/23 16:30 05/31/23 16:30 05/31/23 16:30
Physical Exam
General: Well Developed, Well Nourished and No Apparent Distress
HEENT: NormoCephalic
Respiratory: Clear; No Wheezes, Rales or Rhonchi
Cardiac: S1/S2 and Regular Rhythm; No Murmur
GI: Soft, Non Tender and Non Distended
Musculoskeletal: No Cyanosis, No Edema and Other (Right lower extremity weakness)
Skin: Warm
Neuro: Awake, Alert, Oriented and Other (Motor strength is 5/5 bilateral upper extremities. 4/5 right lower extremity. 5/5 left lower extremity. Deep tendon reflexes present bilaterally lower extremities.)
Psych: Calm
Laboratory Results
-
05/31/23 09:03
05/31/23 09:03
Laboratory Results
PT 13.5 Sec (11.4-14.6) 05/31/23 09:03
INR 1.05 05/31/23 09:03
APTT 24.9 Sec (23.4-35.0) 05/31/23 09:03
Total Bilirubin 1.9 mg/dl (0.2-1.3) H 05/31/23 09:03
AST 32 U/L (17-59) 05/31/23 09:03
ALT 75 U/L (0-50) H 05/31/23 09:03
Alkaline Phosphatase 70 U/L (38-126) 05/31/23 09:03
Data Reviewed
-
Lab Data: Labs Reviewed by me and Discussed with Physician
Impression/Plan
-
IMPRESSION: 52-year-old with no significant medical history presents with dizziness and right lower extremity weakness. Possible etiologies include multiple sclerosis, transverse myelitis, stroke
Dizziness
Abrupt onset of right lower extremity weakness
Cholelithiasis seen on abdominal ultrasound 05/18/2023
Hepatic steatosis seen on ultrasound 05/24/2023
Elevated BUN
Plan
#Dizziness
#Abrupt onset of right lower extremity weakness
Neuro input appreciated, continue to follow
MRI thoracic and lumbar spine with and without contrast completed 05/31/2023
Pending MRI brain and cervical spine with and without contrast
1g IV methylprednisone will need 5 doses
Lumbar puncture, pending CSF analysis
Lab testing for metabolic causes ordered
#Cholelithiasis seen on abdominal ultrasound 05/18/2023
No active acute cholecystitis infection. At that time there was also no bile duct dilation
#Hepatic steatosis seen on ultrasound 05/18/2023
Monitor LFTs
#Elevated BUN
IV fluids
DVT prophylaxis; Lovenox
CODE STATUS:full code
PLAN:
--- NOTE | 2023-06-01 04:09 | DOWNTIME ---
There was a [employer] Operator Downtime on 06/01/2023 from 0100 to 06/01/2023 at 0322. Downtime documentation of patient's care, including medication administrations, has been reconciled in the electronic record per guidelines. Refer to the
patient's paper chart under the miscellaneous tab to see printed paper medication records and downtime forms.
[2023-06-01] MEDS: NSS 1000 IV ×2 (04:58→16:57)
[2023-06-01 06:26] LABS: % Immature Granulocytes 1.4 % (0-0.5); % Lymphocytes 6.8 % (20.5-51.1); % Monocytes 1.6 % (1.7-9.3); % Neutrophils 90.2 % (42.2-75.2); Absolute Immature Granulocytes 0.1 10^3/uL (0-0.05); Absolute Lymphocytes 0.3 10^3/uL (1.2-3.4); Absolute Monocytes 0.1 10^3/uL (0.1-0.6); Absolute Neutrophils 4.4 10^3/uL (1.4-6.5); Hematocrit 43.2 % (39.0-52.0); Hemoglobin 15.6 g/dL (13.0-18.0); Mean Corp Hgb Conc. 36.1 g/dL (33.0-37.0); Mean Corpuscular Hgb 30.3 pg (27.0-31.0); Mean Corpuscular Volume 83.9 fL (80.0-94.0); Mean Platelet Volume 10.2 fL (7.4-10.4); Nucleated Red Blood Cells % 0 % (-); Platelet Count 157 10^3/uL (130-400); Red Blood Cell Count 5.15 10^6/uL (4.70-6.10); Red Cell Dist. Width 13.2 % (11.5-14.5); White Blood Cell Count 4.9 10^3/uL (4.8-10.8)
[2023-06-01 06:55] LABS: ALT (SGPT) 65 U/L (0-50); AST (SGOT) 25 U/L (17-59); Albumin 3.6 g/dl (3.5-5.0); Alkaline Phosphatase 59 U/L (38-126); Blood Urea Nitrogen 18 mg/dl (9-20); Calcium 9.3 mg/dl (8.4-10.2); Carbon Dioxide 24 mmol/L (22-30); Chloride 107 mmol/L (98-107); Estimated Creatinine Clearance > 125 ml/min; Glucose 157 mg/dl (70-99); Potassium 4.6 mmol/L (3.5-5.1); Sodium 137 mmol/L (135-145); Total Protein 5.6 g/dl (6.3-8.2); eGFR > 60.00
[2023-06-01 07:15] VITALS: BP 130/93
--- NOTE | 2023-06-01 07:56 | W.PN.HOSP.TC ---
Addendum entered and electronically signed by Erasmo Deleon MD 06/01/23 22:00:
Attending Addendum-
I saw and evaluated the patient. I reviewed the resident�s note and agree with findings and plan as documented in the resident�s note. does not feel much different after steroids x 2bags. still weak, no progression of sxs. Full 12 point ROS reviewed
and negative except as documented Exam: GEN NAD heart RRR lungs clear and soft LE trace b/l edema Neuro AAO x 3 MS 3+/5 RLE 5/5 LUE LLE RUE sensation intact patellar reflexes 2+, PEERLA, neg babinski neck supple Plan:
# RLE Weakness- unresolved- not progressive- MRI brain ordered and reviewed- suspicious for MS- increased protein and WBC in CSF, multiple labs pending-cont high dose IV steroids day 2/5 days. check labs in am, PT OT monitor for respiratory
compromise, may been MRI c spine as well
# Hyperglycemia- likely steroid induced, start SSI and check Hba1c
# 1cm Adrenal Adenoma- f/u as OP, will d/w patient and family
# Hyponatremia- resolved with IVF, DC IVF, repeat BMP in am
# Dehydration- resolved DC IVF repeat BMP in am
# DVT proph- lovenox
# GI proph- start PPI
Time spent coordinating care, review of plan of care with resident, review of records, med rec, consults, notes, labs, rads, d/w nursing, family, neuro - 55 mins
Original Note:
Today's Communication/Plan
-
Neuro to follow see a/p
Check A1c
Awaiting CSF analysis
Assessment / Plan
Assessment / Plan
IMPRESSION: 52-year-old with no significant medical history presents with dizziness and right lower extremity weakness. Possible etiologies include multiple sclerosis, transverse myelitis, stroke
Dizziness
Abrupt onset of right lower extremity weakness
Incidentaloma
Plan
#Dizziness
#Abrupt onset of right lower extremity weakness
Neuro input appreciated, continue to follow
Pending MRI brain and cervical spine with and without contrast
Continue IV methylprednisolone(D2)
Patient started on Protonix for GI prophylaxis
Lumbar puncture, pending CSF analysis pending
PT/OT evaluation
# Incidentaloma
Right adrenal gland 1 cm nodule
Continue to monitor
# Hyperglycemia
Fasting glucose today 157
Will check A1c
Anticipated Discharge: > 48 hours
Subjective/Interval History
-
No overnight events. Discussed with patient at bedside, patient reports mild improvement in lower extremity weakness. Patient ambulating with a walker, with caregiver assistance.
Objective Data
-
Labs:
Laboratory Results
06/01/23
05:01
WBC 4.9
Hgb 15.6
Hct 43.2
Plt Count 157
Sodium 137
Potassium 4.6
Chloride 107
Carbon Dioxide 24
BUN 18
Creatinine 0.6 L
Glucose 157 H
Calcium 9.3
Total Bilirubin 1.0
AST 25
ALT 65 H
Alkaline Phosphatase 59
Vital Signs:
Vital Signs
Temp Pulse Resp BP Pulse Ox
97.7 F 100 18 142/90 95
05/31/23 23:43 05/31/23 23:43 05/31/23 23:43 05/31/23 23:43 05/31/23 23:43
I&O
05/31/23 06/01/23 06/02/23
06:59 06:59 06:59
Output Total 625 / 625
Balance -625 / -625
Review of Systems
-
All other systems: Reviewed and negative (Except as negative)
Physical Exam
-
General: Well Developed
HEENT: Normocephalic
Respiratory: Clear to Auscultation; Negative Wheezes or Rales
Cardiac: Regular Rhythm and S1/S2
GI: Soft, Nontender and Nondistended
Musculoskeletal: No Clubbing and No Edema
Neuro: Awake, Alert, Oriented, AO x 3 and Other (Motor strength is 5/5 bilateral upper extremities. 4/5 right lower extremity. 5/5 left lower extremity)
Psych: Calm
Data Reviewed
-
Labs: Labs Reviewed by me and Discussed with Physician
[2023-06-01] MEDS: VITAMIN D3 (cholecalciferol) 25 MCG PO (08:45)
--- NOTE | 2023-06-01 09:01 | W.PN.NEURO.1 ---
Addendum entered and electronically signed by Joel Tovar MD 06/01/23 13:23:
Studies reviewed.
I have personally examined the patient. I reviewed and agree with the BOOM TENDER's Note.
My addenda:
Awake, alert, interactive. No acute distress.
Speech intact.
Follows 2-step requests w/o difficulty. No tremor.
Extra-ocular movements grossly intact.
Facial movements full and symmetric. Hearing intact to normal conversational volume.
Normal UE movements bilaterally.
Neck: full ROM.
Chest: no dyspnea
Heart: no JVD
Ext: (-) Clubbing, (-) Cyanosis, (-) Edema
IMPRESSIONS/RECOMMENDATIONS:
Abrupt onset right lower extremity weakness with MRI of thoracic spine changes that are suggestive of multiple sclerosis or atypical demyelinating process such as neuromyelitis optica spectrum disorder or MOGAD
Continue newly initiated methylprednisolone dosing
Vitamin B12 replacement due to level less than 400
Workup of possible adenoma in right adrenal gland
D/W patient / family
All questions answered.
Will continue to follow patient.
Original Note:
Documented by User: Izzy Meredith NP 06/01/23 11:20
Today's Communication / Plan
-
.
Neuro Assessment/Plan
Assessment
This is a 52-year-old male who presented to on 05/31/23 with report of abrupt onset RLE weakness and three falls at home starting on 05/28/23. Earlier this month starting on 05/06/23, patient experienced flu-like symptoms and dizziness and completed
Cedfdinir and steroids for treatment of otitis media and sinusitis.
-CT head 05/18/23: No acute intracranial abnormality. Paranasal sinus mucosal disease/sinusitis.
-Lumbar Spine MRI 05/31/23: Minimal degenerative disk and joint disease in the lumbar spine. No mass, fluid collection or abnormal enhancement on postcontrast imaging. Mild central canal stenosis at L4-5.
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 Differential includes the possibility of an infection, inflammation, spinal cord infarction or demyelinating process such as multiple
sclerosis and/or Lyme disease. Neoplasm much less likely however is included in the differential. No adjacent abnormal enhancement in the paraspinal soft tissues. Follow-up with contrast-enhanced brain and cervical spine MRI imaging is recommended
for complete evaluation. Small focal central disk herniation at T7-8 causing mild cord compression. No myelopathy at this level. 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 1 cm nodule in the right adrenal gland most consistent
with an adenoma.
-CSF 05/31/23: WBC 10, glucose 72, protein 123.
I. MRI thoracic spine with signal intensity at T1-T2, T5-T-6, T10, and T11-T12. Etiology likely multifocal transverse myelitis vs demyelinating process.
II. Right adrenal gland 1 cm nodule.
III. Recent otitis media/sinusitis.
Plan
-MRI brain with and w/o contrast ordered/pending.
-Continue Methylprednisolone 1gm IV x5 days. (Today is day 2/5).
-Additional labs and CSF results ordered/pending
-Bladder scan/straight cath protocol
-PT/OT evaluations
-DVT prophylaxis
-Will follow pending results.
Subjective/Objective
Subjective Data
Date of Service: June 01, 2023
No acute events overnight. Patient feels that later in the day yesterday he noticed mild improvement in his RLE strength. He denies any headache, dizziness, vision changes, speech/swallow difficulty, bladder/bowel difficulty numbness, chest pain,
palpitations, and shortness of breath.
Objective Data
Vital Signs
Temp Pulse Resp BP Pulse Ox
98.2 F 95 18 130/93 97
06/01/23 07:15 06/01/23 07:15 06/01/23 07:15 06/01/23 07:15 06/01/23 07:15
Lab Results
06/01/23 05:01
06/01/23 05:01
PT 13.5 Sec (11.4-14.6) 05/31/23 09:03
INR 1.05 05/31/23 09:03
APTT 24.9 Sec (23.4-35.0) 05/31/23 09:03
Sodium 137 mmol/L (135-145) 06/01/23 05:01
Potassium 4.6 mmol/L (3.5-5.1) 06/01/23 05:01
BUN 18 mg/dl (9-20) 06/01/23 05:01
Glucose 157 mg/dl (70-99) H 06/01/23 05:01
Calcium 9.3 mg/dl (8.4-10.2) 06/01/23 05:01
Vitamin B12 387 pg/ml (239-931) 05/31/23 09:03
Patient Allergies
No Known Allergies Allergy (Unverified 05/18/23 16:12)
Review of Systems
-
History Source: Patient
EENT: Negative Blurry Vision, Decreased Vision or Swallowing Difficulty
Respiratory: Negative Cough or Trouble Breathing
Cardiac: Negative Chest Pain or Palpitations
Abdomen/GI: Negative Nausea
Genitourinary: Negative Difficulty Voiding
Neuro: Weakness (RLE weakness); Negative Dizzy, Headache, Numbness, Ataxia or Tremors
Physical Exam
-
General: Well Developed, Well Nourished and No Apparent Distress
Eyes: No Ptosis
HEENT: Normocephalic and Atraumatic
Neck: Full Range of Motion
Respiratory: No Dyspnea
GI: Non-distended
Skin: Unremarkable
Extremities: No Clubbing, No Cyanosis and No Edema
Psych: Unremarkable
Extended Neurological Exam
Mood & Affect: Mood Unremarkable and Affect Unremarkable
Attention Span & Concentration: Awake, Alert and Interactive
Memory: Unremarkable (AAOx3) and Able to Recall
Tremor: Hand Tremor Absent and Head Tremor Absent
Involuntary Movement: None
Speech: Quality Unremarkable, Quantity Unremarkable and Rate of Production Unremarkable
Cranial Nerve II: Left Eye: Pupillary Reactivity Unremarkable and Pupillary Size Unremarkable
Cranial Nerve II: Right Eye: Pupillary Reactivity Unremarkable and Pupillary Size Unremarkable
Cranial Nerves III, IV, : Extraocular Movement: Extraocular Movement Full in all Directions
Cranial Nerve VII: Facial Symmetry: Normal Facial Symmetry
Cranial Nerve VIII: Hearing: Unremarkable Hearing to Normal Conversational Volume
Cranial Nerve XI: Shoulder Shrug: Unremarkable
Cranial Nerve XII: Tongue Protusion: Midline
Muscle Strength, Overall: Reduced on Right (RLE 4/5, R plantar/dorsiflexion 4/5)
Muscle Bulk & Tone: Bulk Unremarkable and Tone Unremarkable
Pronator Drift: No Drift in Upper Extremities and Drift in Right Lower Extremity; Negative Drift in Left Lower Extremity
Deep Tendon Reflexes: 3+ (throughout)
Cold Sensation: Reduced Moderately Distally
Vibration Sensation: Absent Distally (in BLE)
Coordination: [id number] Testing Unremarkable
Data Reviewed
-
CT Head: Report Reviewed and Image Reviewed
MRI Thoracic Spine: Report Reviewed and Image Reviewed
MRI Lumbar Spine: Report Reviewed and Image Reviewed
Medical Test Reports: Report Reviewed (CSF)
Labs: Report Reviewed
Reviewed with: Physician, Patient and Family
Medications
-
Active Medications
Generic Name Dose Route Start Last Admin
Trade Name Freq PRN Reason Stop Dose Admin
Cholecalciferol 25 mcg 06/01/23 08:00 06/01/23 08:45
Cholecalciferol (Vitamin D3) 25 Mcg Tablet (1,000 Units) PO 06/29/23 07:59 25 mcg
DAILY YOHANA Administration
Cyanocobalamin 1,000 mcg 06/01/23 10:00 06/01/23 10:05
Cyanocobalamin 1,000 Mcg Tablet PO 06/29/23 09:59 1,000 mcg
DAILY YOHANA Administration
Enoxaparin Sodium 40 mg 05/31/23 18:00 05/31/23 17:27
Enoxaparin Sodium 40 Mg/0.4 Ml Syringe SC 06/28/23 17:59 40 mg
QPM YOHANA Administration
Methylprednisolone Sodium 258 mls @ 258 mls/hr 05/31/23 13:30 05/31/23 13:28
Succinate 1,000 mg/ Sodium IV 06/04/23 14:29 258 mls
Chloride Q24H YOHANA Administration
Sodium Chloride 1,000 mls @ 80 mls/hr 05/31/23 15:45 06/01/23 04:58
Nss IV 1,000 mls
.[id number] YOHANA Administration
Pantoprazole Sodium 40 mg 06/01/23 10:00 06/01/23 10:05
Pantoprazole 40 Mg Delayed Release Tablet PO 06/29/23 09:59 40 mg
DAILY YOHANA Administration
Sodium Chloride 0 flush 05/31/23 16:00
Sodium Chloride 0.9% (Flush) Syringe IV 06/28/23 15:59
PER PROTOCOL YOHANA
Home Medications
�Medication �Instructions �Recorded
cholecalciferol (vitamin D3) 25 25 mcg PO DAILY Supplement 05/31/23
mcg (1,000 unit) chewable tablet
(Vitamin D3)
multivitamin with minerals-folic 1 tab PO DAILY Supplement 05/31/23
acid 80 mcg chewable tablet

Documented by User: Joel Tovar MD 06/01/23 13:11
Neuro Assessment/Plan
Assessment
This is a 52-year-old male who presented to on 05/31/23 with report of abrupt onset RLE weakness and three falls at home starting on 05/28/23. Earlier this month starting on 05/06/23, patient experienced flu-like symptoms and dizziness and completed
Cedfdinir and steroids for treatment of otitis media and sinusitis.
-CT head 05/18/23: No acute intracranial abnormality. Paranasal sinus mucosal disease/sinusitis.
-Lumbar Spine MRI 05/31/23: Minimal degenerative disk and joint disease in the lumbar spine. No mass, fluid collection or abnormal enhancement on postcontrast imaging. Mild central canal stenosis at L4-5.
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 Differential includes the possibility of an infection, inflammation, spinal cord infarction or demyelinating process such as multiple
sclerosis and/or Lyme disease. Neoplasm much less likely however is included in the differential. No adjacent abnormal enhancement in the paraspinal soft tissues. Follow-up with contrast-enhanced brain and cervical spine MRI imaging is recommended
for complete evaluation. Small focal central disk herniation at T7-8 causing mild cord compression. No myelopathy at this level. 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 1 cm nodule in the right adrenal gland most consistent
with an adenoma.
-CSF 05/31/23: WBC 10, glucose 72, protein 123.
I. MRI thoracic spine with signal intensities at T1-T2, T5-T-6, T10, and T11-T12. Etiology likely multifocal transverse myelitis vs demyelinating process.
II. Right adrenal gland 1 cm nodule.
III. Recent otitis media/sinusitis.
Plan
-MRI brain with and w/o contrast ordered/pending.
-Continue Methylprednisolone 1gm IV x5 days. (Today is day 2/5).
-Additional labs and CSF results ordered/pending
-Bladder scan/straight cath protocol
-PT/OT evaluations
-DVT prophylaxis
-Will follow pending results.
[2023-06-01] MEDS: PROTONIX 40 MG PO (10:05)
[2023-06-01] MEDS: VITAMIN B-12 1000 MCG PO (10:05)
[2023-06-01 10:44] LABS: Vitamin D, 25-OH*** 39.9 ng/mL (30-80)
[2023-06-01] MEDS: SOLU-MEDROL 258 MG IV (12:15)
[2023-06-01 15:10] VITALS: BP 174/94
[2023-06-01 16:22] VITALS: PULSE 114; O2SAT 99
--- NOTE | 2023-06-01 16:30 | CM ---
Alert awake oriented patient who lives with his mom Kathleen who lives in a 2 story home with 0 step to enter and 12 steps to bed and bathroom. He is independent in driving and in all activities of daily living.He uses a cane and walker .Will need PT OT
for dc planning.
No VN hx / No SNF history
Pharmacy [facility]
PCP:None Pt given number to [facility] [phone]
PLAN Possible Acute rehab N
[2023-06-01] MEDS: LOVENOX 40 MG SC (16:57)
[2023-06-01 23:00] VITALS: BP 163/95
[2023-06-02] VITALS (8 sets, daily range): BP systolic 147–190; BP diastolic 87–111; PULSE 100; O2SAT 98
[2023-06-02 00:25] LABS: IgG 385 mg/dl (700-1600)
[2023-06-02 00:48] LABS: IgA < 50 mg/dl (70-400); IgM < 25 mg/dl (40-230)
[2023-06-02 03:07] LABS: ANA, IgG Reflex to HEp-2 None Detected (None Detected)
[2023-06-02 06:19] LABS: % Basophils 0.2 % (0-2); % Immature Granulocytes 1.9 % (0-0.5); % Lymphocytes 5.4 % (20.5-51.1); % Monocytes 2.2 % (1.7-9.3); % Neutrophils 90.3 % (42.2-75.2); Absolute Immature Granulocytes 0.1 10^3/uL (0-0.05); Absolute Lymphocytes 0.3 10^3/uL (1.2-3.4); Absolute Monocytes 0.1 10^3/uL (0.1-0.6); Absolute Neutrophils 5.6 10^3/uL (1.4-6.5); Hematocrit 41.3 % (39.0-52.0); Hemoglobin 15.1 g/dL (13.0-18.0); Mean Corp Hgb Conc. 36.6 g/dL (33.0-37.0); Mean Corpuscular Hgb 30.5 pg (27.0-31.0); Mean Corpuscular Volume 83.4 fL (80.0-94.0); Mean Platelet Volume 9.8 fL (7.4-10.4); Nucleated Red Blood Cells % 0 % (-); Platelet Count 161 10^3/uL (130-400); Red Blood Cell Count 4.95 10^6/uL (4.70-6.10); Red Cell Dist. Width 13.3 % (11.5-14.5); White Blood Cell Count 6.3 10^3/uL (4.8-10.8)
[2023-06-02 06:35] LABS: Blood Urea Nitrogen 22 mg/dl (9-20); Calcium 9.4 mg/dl (8.4-10.2); Carbon Dioxide 25 mmol/L (22-30); Chloride 106 mmol/L (98-107); Estimated Creatinine Clearance > 125 ml/min; Glucose 139 mg/dl (70-99); Sodium 137 mmol/L (135-145); eGFR > 60.00
[2023-06-02 06:44] LABS: Potassium 5.3 mmol/L (3.5-5.1)
--- NOTE | 2023-06-02 07:50 | W.PN.HOSP.TC ---
Addendum entered and electronically signed by Erasmo Deleon MD 06/02/23 21:34:
Attending Addendum-
I saw and evaluated the patient. I reviewed the resident�s note and agree with findings and plan as documented in the resident�s note. feels improvement after 3 doses of steroids. no progression of sxs nor new sxs. Full 12 point ROS reviewed and
negative except as documented Exam: GEN NAD heart RRR lungs clear and soft LE trace b/l edema Neuro AAO x 3 MS 4/5 RLE 5/5 LUE LLE RUE sensation intact patellar reflexes 2+, PEERLA, neg babinski neck supple Plan:
# RLE Weakness- resolving- not progressive- MRI brain ordered and reviewed- suspicious for demyelinating disease MS vs TM vs NMO vs MOGAD- multiple labs pending-cont high dose IV steroids day 3/5. follow labs in am, PT OT monitor for respiratory
compromise may require plasmapheresis while in house PMnR consult placed for acute rehab
# Hyperkalemia- mild repeat in am
# Hyperglycemia- likely steroid induced, start SSI and check Hba1c 4.7 cont to monitor will need op follow up
# 1 cm Adrenal Adenoma- f/u as OP, will d/w patient and family
# Hyponatremia- resolved, repeat BMP in am
# Dehydration- resolved, repeat BMP in am
# DVT proph- lovenox
# GI proph- cont PPI
Time spent coordinating care, review of plan of care with resident, review of records, med rec, consults, notes, labs, rads, d/w nursing, family - 52 mins
Original Note:
Today's Communication/Plan
-
See a/p
Acute rehab after hospitalization
Consults PM&R
Continue high-dose IV steroids for total of 5 days.
Assessment / Plan
Assessment / Plan
IMPRESSION: 52-year-old with no significant medical history presents with dizziness and right lower extremity weakness. Possible etiologies include multiple sclerosis, transverse myelitis, stroke
Dizziness
Abrupt onset of right lower extremity weakness
Incidentaloma
Plan
#Dizziness
#Abrupt onset of right lower extremity weakness
Neuro input appreciated, continue to follow
MRI brain ordered- Mild signal alteration in the bilateral cerebral white matter, right middle cerebellar peduncle, and upper cervical spinal cord. These findings would be considered most suspicious for demyelination given the poor neuro input, most
likely a flare of demyelinating disease, could be multiple sclerosis.
Continue IV methylprednisolone(D3)
Continue Protonix for GI prophylaxis
Lumbar puncture, pending CSF analysis pending
PT evaluation-patient will need acute rehabilitation following this hospitalization
Will consult PM&R
# Hyperglycemia
Fasting glucose today 139., Yesterday 157. Most likely increase is from steroid use.
A1c 4.7 06/01/2023
Start SSI, monitor glucose level
# Hypertension
Start hydralazine 10 mg IV PRN
Monitor on telemetry
Incidentaloma
Follow-up as outpatient
Monitor
DVT prophylaxis-Lovenox
Anticipated Discharge: > 48 hours
Subjective/Interval History
-
Overnight events reported. Nurse reports patient's blood pressure increased to 182/110 after walking back from the bathroom. IV Hydralazine 10 mg was administered with improvement Of BP to 165/104.
Patient complaining of headache, reports headache is mild. Headache got better after administration of Tylenol.
Patient reports symptoms of right lower extremity weakness has improved. Reports strength has improved.
Objective Data
-
Labs:
Laboratory Results
06/02/23
05:09
WBC 6.3
Hgb 15.1
Hct 41.3
Plt Count 161
Sodium 137
Potassium 5.3 H
Chloride 106
Carbon Dioxide 25
BUN 22 H
Creatinine 0.7
Glucose 139 H
Calcium 9.4
Vital Signs:
Vital Signs
Temp Pulse Resp BP Pulse Ox
98.3 F 74 18 147/93 98
06/01/23 23:00 06/02/23 02:45 06/02/23 02:45 06/02/23 02:45 06/02/23 02:45
I&O
06/01/23 06/02/23 06/03/23
06:59 06:59 06:59
Intake Total 1480 / 1480
Output Total 625 / 625 1075 / 1075
Balance -625 / -625 405 / 405
Review of Systems
-
All other systems: Reviewed and negative (Except as documented)
Constitutional: Denies Fever or Chills
Respiratory: Denies Trouble Breathing
Physical Exam
-
General: Well Developed
HEENT: Normocephalic
Respiratory: Clear to Auscultation; Negative Wheezes or Rales
Cardiac: Regular Rhythm and S1/S2
GI: Soft, Nontender and Nondistended
Musculoskeletal: No Clubbing, No Edema and Other (Motor strength is 5/5 bilateral upper extremities. 4/5 right lower extremity. 5/5 left lower extremity)
Skin: Warm
Neuro: Awake and Alert
Psych: Calm
Data Reviewed
-
Labs: Labs Reviewed by me and Discussed with Physician
--- NOTE | 2023-06-02 08:11 | W.PN.NEURO.1 ---
Addendum entered and electronically signed by Yamil Bueno MD 06/02/23 12:03:
I saw and evaluated the patient I reviewed the note by Izzy Subramanian agree with the findings the following comments:
One 52-year-old man with no significant past medical history apart from obesity who at the beginning of May started to have vertigo in the past couple of days started to have significant gait dysfunction as well as right leg weakness. He feels a
bit anxious but feels like vertigo is a bit improved, no double vision or dysphagia did have some minor dysarthria at times, no hand incoordination or arm weakness but does have right leg weakness and gait dysfunction. He denies any urinary or
bowel incontinence or urinary retention.
Neurologic examination shows normal mental status, he has some abnormal upward beating nystagmus on upgaze but otherwise cranial nerves are normal, motor function shows normal strength of the arms and hands bilaterally and mild weakness of right hip
flexion 4/5. Sensory loss to pinprick and vibration on the right thigh, I am not picking up a spinal level to pinprick on testing the abdomen. Legs show bilateral hyperreflexia with nonsustained clonus on the right ankle, crossed adductor reflex
bilaterally and 3+ patellar reflex bilaterally, positive Arceo's reflex on the left hand. Gait shows unsteadiness with normal width of stance and uses the walker and clearly drags the right leg showing weakness there.
MRI of the brain reviewed which shows patchy T2 hyperintensity in approximately 3 areas in the thoracic spine at T1/T2/T5/T6 and T10 with mild contrast-enhancement on each of these.
Brain MRI demonstrates abnormal T2/FLAIR signal in the bilateral cerebral white matter of the frontal parietal lobes, right middle cerebellar peduncle, no post contrast enhancement abnormalities on the brain. Brain MRI is able to show that there is
a small amount of cervical spine postcontrast enhancement.
Assessment: Most likely a flare of demyelinating disease, could be multiple sclerosis, MOGAD, or NMO which would be a new diagnosis. Discussed with the patient and his mother extensively the possibilities, pending diagnostic testing for NMO and
MOGAD, and treatments along with that future treatment will depend on if he shows positivity for NMO or MOGAD antibodies.
Treatment:
-Continue high-dose IV steroids for total of 5 days today is 05/09
-Monitor for urinary retention monitor for urinary or bowel incontinence or new symptoms
-Physical therapy occupational therapy evaluations expect he will need acute rehabilitation following this hospitalization
-Discussed with the patient depending on his gait and level of function especially of the right leg weakness by the fifth day of steroids that we will need to consider plasma exchange which has been shown to be an effective treatment for
demyelinating disease with significantly disabling symptoms, will continue to follow his clinical course and make this decision Tuesday or Tuesday, explained what plasma exchange entails and that it would mean most likely another 7 to 10 days in the
hospital for these treatments.
Will follow
Original Note:
Today's Communication / Plan
-
.
Neuro Assessment/Plan
Assessment
This is a 52-year-old male who presented to on 05/31/23 with report of abrupt onset RLE weakness and three falls at home starting on 05/28/23. Earlier this month starting on 05/06/23, patient experienced flu-like symptoms and dizziness and completed
Cedfdinir and steroids for treatment of otitis media and sinusitis.
-CT head 05/18/23: No acute intracranial abnormality. Paranasal sinus mucosal disease/sinusitis.
-Lumbar Spine MRI 05/31/23: Minimal degenerative disk and joint disease in the lumbar spine. No mass, fluid collection or abnormal enhancement on postcontrast imaging. Mild central canal stenosis at L4-5.
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 Differential includes the possibility of an infection, inflammation, spinal cord infarction or demyelinating process such as multiple
sclerosis and/or Lyme disease. Neoplasm much less likely however is included in the differential. No adjacent abnormal enhancement in the paraspinal soft tissues. Follow-up with contrast-enhanced brain and cervical spine MRI imaging is recommended
for complete evaluation. Small focal central disk herniation at T7-8 causing mild cord compression. No myelopathy at this level. 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 1 cm nodule in the right adrenal gland most consistent
with an adenoma.
-CSF 05/31/23: WBC 10, glucose 72, protein 123.
-MRI brain 06/01/23: Mild signal alteration in the bilateral cerebral white matter, right middle cerebellar peduncle, and upper cervical spinal cord. These findings would be considered most suspicious for demyelination given the clinical concern for
multiple sclerosis. Postcontrast enhancement of the lesion in the upper cervical spinal cord suggesting active demyelination.
I. MRI thoracic spine with signal intensities at T1-T2, T5-T-6, T10, and T11-T12. MRI brain with signal intensities in bilateral cerebral white matter, right middle cerebellar peduncle, and upper cervical spinal cord. Changes are suggestive of
multiple sclerosis or atypical demyelinating process such as NMO or MOG.
II. Right adrenal gland 1 cm nodule.
III. Recent otitis media/sinusitis.
Plan
-Continue Methylprednisolone 1gm IV x5 days. (Today is day 3/5). If patient is not significantly improved by end of steroid course, will consider PLEX.
-Additional labs and CSF results ordered/pending
-Bladder scan/straight cath protocol
-PT/OT evaluations
-DVT prophylaxis
-Cyanocobalamin replacement for B12 level <400.
-Continue vitamin D3 replacement.
-Will follow pending results.
-Patient will need to follow-up with Neurology as an outpatient in about 4 weeks, may see the [facility] or one of the physicians. Also provided patient with contact info for [facility] to eventually see an MS specialists as an outpatient.
Subjective/Objective
Subjective Data
Date of Service: June 02, 2023
No acute events overnight. Patient reports his RLE feels minimally stronger today, his right foot is still dragging when he walks and his gait is abnormal. He endorses numbness in bilateral fingers and ongoing decreased sensation in his RLE.
Objective Data
Vital Signs
Temp Pulse Resp BP Pulse Ox
98.3 F 74 18 147/93 98
06/01/23 23:00 06/02/23 02:45 06/02/23 02:45 06/02/23 02:45 06/02/23 02:45
Lab Results
06/02/23 05:09
06/02/23 05:09
PT 13.5 Sec (11.4-14.6) 05/31/23 09:03
INR 1.05 05/31/23 09:03
APTT 24.9 Sec (23.4-35.0) 05/31/23 09:03
Sodium 137 mmol/L (135-145) 06/02/23 05:09
Potassium 5.3 mmol/L (3.5-5.1) H 06/02/23 05:09
BUN 22 mg/dl (9-20) H 06/02/23 05:09
Glucose 139 mg/dl (70-99) H 06/02/23 05:09
Calcium 9.4 mg/dl (8.4-10.2) 06/02/23 05:09
Vitamin B12 387 pg/ml (239-931) 05/31/23 09:03
Patient Allergies
No Known Allergies Allergy (Unverified 05/18/23 16:12)
Review of Systems
-
History Source: Patient
EENT: Negative Blurry Vision, Decreased Vision or Swallowing Difficulty
Respiratory: Negative Cough or Trouble Breathing
Cardiac: Negative Chest Pain or Palpitations
Abdomen/GI: Constipated; Negative Incontinence of Stool
Genitourinary: Negative Incontinence or Difficulty Voiding
Neuro: Dizzy (intermittently), Weakness (RLE), Numbness (b/l fingers, RLE), Ataxia (RLE) and Speech Problem (occasional dry mouth/slurred speech); Negative Headache or Tremors
Physical Exam
-
General: Well Developed, Well Nourished and No Apparent Distress
Eyes: No Ptosis and PERRLA
HEENT: Normocephalic
Neck: Full Range of Motion
Respiratory: No Dyspnea
GI: Non-distended
Extremities: No Clubbing, No Cyanosis and No Edema
Psych: Unremarkable
Extended Neurological Exam
Mood & Affect: Mood Unremarkable and Affect Unremarkable
Attention Span & Concentration: Awake, Alert, Interactive and No Difficulty with 2 Step Request
Memory: Unremarkable (AAOx3) and Able to Recall
Tremor: Hand Tremor Absent and Head Tremor Absent
Involuntary Movement: None
Speech: Quality Unremarkable, Quantity Unremarkable and Rate of Production Unremarkable
Cranial Nerve II: Left Eye: Pupillary Reactivity Unremarkable, Pupillary Size Unremarkable and Visual Rivers Intact
Cranial Nerve II: Right Eye: Pupillary Reactivity Unremarkable and Visual Rivers Intact
Cranial Nerves III, IV, : Extraocular Movement: Extraocular Movement Full in all Directions, Nystagmus with Extreme Gaze to Left and Other (slight nystagmus with extreme up gaze. +diplopia iwth extreme left and up gaze.)
Cranial Nerve V: Facial Sensation: Intact to Light Touch
Cranial Nerve VII: Facial Symmetry: Normal Facial Symmetry
Cranial Nerve VIII: Hearing: Unremarkable Hearing to Normal Conversational Volume
Cranial Nerves IX, X: Palate Movement: Palate Elevation Symmetric
Cranial Nerve XI: Shoulder Shrug: Unremarkable
Cranial Nerve XII: Tongue Protusion: Midline
Muscle Strength, Overall: Reduced on Right (RLE hip flexion 4+/5, R dorsi/plantarflexion 4-/5)
Muscle Bulk & Tone: Bulk Unremarkable and Tone Unremarkable
Pronator Drift: No Drift in Upper Extremities and No Drift in Lower Extremities
Deep Tendon Reflexes: Clonus (R ankle with 2 beats of clonus) and 3+ (+Arceo sign)
Cold Sensation: Reduced (In RLE)
Vibration Sensation: Reduced (in RLE)
Touch Sensation: Pin Prick Reduced (in RLE)
Coordination: [id number] Testing Unremarkable
Babinski Sign: Absent Bilaterally
Data Reviewed
-
CT Head: Report Reviewed and Image Reviewed
MRI Head: Report Reviewed and Image Reviewed
MRI Thoracic Spine: Report Reviewed and Image Reviewed
MRI Lumbar Spine: Report Reviewed and Image Reviewed
Medical Test Reports: Report Reviewed (CSF)
Labs: Report Reviewed
Reviewed with: Physician, Patient and Family
Medications
-
Active Medications
Generic Name Dose Route Start Last Admin
Trade Name Freq PRN Reason Stop Dose Admin
Cholecalciferol 25 mcg 06/01/23 08:00 06/02/23 08:18
Cholecalciferol (Vitamin D3) 25 Mcg Tablet (1,000 Units) PO 06/29/23 07:59 25 mcg
DAILY YOHANA Administration
Cyanocobalamin 1,000 mcg 06/01/23 10:00 06/02/23 08:18
Cyanocobalamin 1,000 Mcg Tablet PO 06/29/23 09:59 1,000 mcg
DAILY YOHANA Administration
Dextrose 12.5 grams 06/01/23 22:00
Dextrose 50% (0.5 Grams/Ml) 50 Ml Syringe IV 06/29/23 21:59
[id number] PRN
hypoglycemia
Protocol
Enoxaparin Sodium 40 mg 05/31/23 18:00 06/01/23 16:57
Enoxaparin Sodium 40 Mg/0.4 Ml Syringe SC 06/28/23 17:59 40 mg
QPM YOHANA Administration
Glucagon 1 mg 06/01/23 22:00
Glucagon 1 Mg Vial IM 06/29/23 21:59
PRN PRN
hypoglycemia - no IV access
Protocol
Methylprednisolone Sodium 258 mls @ 258 mls/hr 05/31/23 13:30 06/01/23 12:15
Succinate 1,000 mg/ Sodium IV 06/04/23 14:29 258 mls
Chloride Q24H YOHANA Administration
Insulin Aspart 0 units 06/02/23 07:30
Insulin Aspart Low Resistance 300 Units/3 Ml Pen.Injctr SC 06/30/23 07:29
AC YOHANA
Protocol
Pantoprazole Sodium 40 mg 06/01/23 10:00 06/02/23 08:18
Pantoprazole 40 Mg Delayed Release Tablet PO 06/29/23 09:59 40 mg
DAILY YOHANA Administration
Sodium Chloride 0 flush 05/31/23 16:00
Sodium Chloride 0.9% (Flush) Syringe IV 06/28/23 15:59
PER PROTOCOL YOHANA
Home Medications
�Medication �Instructions �Recorded
cholecalciferol (vitamin D3) 25 25 mcg PO DAILY Supplement 05/31/23
mcg (1,000 unit) chewable tablet
(Vitamin D3)
multivitamin with minerals-folic 1 tab PO DAILY Supplement 05/31/23
acid 80 mcg chewable tablet
[2023-06-02] MEDS: VITAMIN B-12 1000 MCG PO (08:18)
[2023-06-02] MEDS: VITAMIN D3 (cholecalciferol) 25 MCG PO (08:18)
[2023-06-02] MEDS: PROTONIX 40 MG PO (08:18)
[2023-06-02 08:31] LABS: Glucose - Point of Care 142 mg/dl (70-99)
[2023-06-02 08:44] LABS: Glycohemoglobin (HgbA1c) 4.7 % (4.0-5.6)
--- NOTE | 2023-06-02 08:57 | CM ---
PT indicated acute rehab at dc.
OT to see patient .
Spoke with Monica Chakraborty to review chart.
Requested PMR order form MD to assist in dc planning.
Spoke with patient he is in agreement with [facility] if accpeted.
Will need auth.
PLAN [facility] if after auth
[2023-06-02] MEDS: NOVOLOG FLEXPEN-LOW RESISTANCE SC (09:10)
[2023-06-02] MEDS: APRESOLINE 10 MG IV ×2 (10:07→17:55)
[2023-06-02] MEDS: SOLU-MEDROL 258 MG IV (11:39)
[2023-06-02 12:49] LABS: Glucose - Point of Care 172 mg/dl (70-99)
[2023-06-02] MEDS: NOVOLOG FLEXPEN-LOW RESISTANCE 1 UNITS SC ×2 (12:58→17:47)
[2023-06-02] MEDS: TYLENOL 650 MG PO (13:34)
[2023-06-02 16:44] LABS: Glucose - Point of Care 171 mg/dl (70-99)
--- NOTE | 2023-06-02 17:29 | PTCARENOTE ---
Patient with high blood pressure today. This am after walking from bathroom, BP was 182/110. MD notified. Hydralazine 10 mg IV administered as ordered. awake overnight monitor placed on patient. Patient SR - Sinus tach. Heart rate in low 100s. After
dinner, patient with BP of 190/98. Additional dose of hydralazine given. Patient stated he had headache this afternoon and Tylenol given with relief.
[2023-06-02] MEDS: LOVENOX 40 MG SC (17:47)
--- NOTE | 2023-06-02 18:15 | CON.MR ---
Consultation
Consultation Request
Date/Time Consultation Performed: 06/02/23 181
Performing Provider: Dr. Dickson
Reason for Consultation: Weakness, demyelinating disease
Medical History
-
Chief Complaint: Weakness
History of Present Illness:
I had the opportunity to see Tommie Andersen in rehabiltation consultation today. This is a 52-year-old male who was admitted to on 05/31/23. Starting a month ago was getting episodes of dizziness, vertigo, and went to urgent care and ER's.
Initially felt to be vertigo or vestibular dysfunction, ear infection, sinusitis, etc. But last weekend started getting more RLE weakness and had three falls at home starting on 05/28/23. Initial CT head 05/18/23 with no acute intracranial
abnormality. Paranasal sinus mucosal disease/sinusitis. Lumbar Spine MRI 05/31/23 with minimal degenerative disk and joint disease in the lumbar spine. No mass, fluid collection or abnormal enhancement on postcontrast imaging. Mild central canal
stenosis at L4-5. Thoracic Spine MRI 05/31/23 with findings are most consistent with multifocal transverse myelitis, etiology unclear. Differential includes the possibility of an infection, inflammation, spinal cord infarction or demyelinating
process such as multiple sclerosis and/or Lyme disease. Neoplasm much less likely however is included in the differential. No adjacent abnormal enhancement in the paraspinal soft tissues. 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
kidney. 1 cm nodule in the right adrenal gland most consistent with an adenoma. With lumbar puncture CSF 05/31/23: WBC 10, glucose 72, protein 123.
MRI of the brain reviewed which shows patchy T2 hyperintensity in approximately 3 areas in the thoracic spine at T1/T2/T5/T6 and T10 with mild contrast-enhancement on each of these. Brain MRI demonstrates abnormal T2/FLAIR signal in the bilateral
cerebral white matter of the frontal parietal lobes, right middle cerebellar peduncle, no post contrast enhancement abnormalities on the brain. Brain MRI is able to show that there is a small amount of cervical spine postcontrast enhancement.
Patient seen at bedside this evening. Sitting up in bedside chair and family also present in the room. Patient denies any pain today. Does admit to paresthesias mostly in the right LE below the knee and to the right foot, but also with
paresthesias in the bilateral fingertips. Denies any vision changes or double vision - but did notice a little double vision today with far left lateral gaze. But no other vision changes, no current dizziness, no headache. Denies any chest pain,
SOB, GI complaints, no bowel or bladder dysfunction.
Currently living with parents and brother in 2 story house, and normally independent with mobility without cane/assistive device, but was falling over the last weekend with the progressive weakness.
Past Medical History: Reports None
Past Surgical History: Reports None
Social History
Tobacco: Non-smoker
Alcohol: None
Drug: None
Personal: Single
Living: With Family
Employment: Employed
Family History
Family History: Not pertinent
Social History
Functional Level Premorbidity:
Independent for all activities.
Current Funct Level: Ambulation, Transfer, UE/LE Dressing:
Min A transfers, Min A ambulation
Living: With Family
Number of Floors: 2
Potential First Floor Set Up: No
Allergies / Home Medications
Allergy/AdvReac Type Severity Reaction Status Date / Time
No Known Allergies Allergy Unverified 05/18/23 16:12
�Medication �Instructions �Recorded �Confirmed �Last Taken �Type
cholecalciferol (vitamin D3) 25 25 mcg PO DAILY Supplement 05/31/23 05/31/23 05/31/23 History
mcg (1,000 unit) chewable tablet
(Vitamin D3)
multivitamin with minerals-folic 1 tab PO DAILY Supplement 05/31/23 05/31/23 05/31/23 History
acid 80 mcg chewable tablet
Review Of Systems
-
History Source: Patient
All other systems: Negative unless noted
Constitutional: Reports No Symptoms
Eye: Reports No Symptoms
EENT: Reports No Symptoms
Respiratory: Reports No Symptoms
Cardiac: Reports No Symptoms
Abdomen/GI: Reports No Symptoms
: Reports No Symptoms
Musculoskeletal: Reports No Symptoms
Integumentary: Reports No Symptoms
Neurological: Reports Weakness and Numbness
Psych: Reports No Symptoms
Endocrine: Reports No Symptoms
Hematologic/Lymphatic: Reports No Symptoms
Immunology: Reports No Symptoms
Physical Exam
Active Medications
Generic Name Dose Route Start Last Admin
Trade Name Freq PRN Reason Stop Dose Admin
Acetaminophen 650 mg 06/02/23 13:04 06/02/23 13:34
Acetaminophen 325 Mg Tablet PO 06/30/23 13:03 650 mg
Q6HPRN PRN Administration
mild pain/ fever>100.5F
Cholecalciferol 25 mcg 06/01/23 08:00 06/02/23 08:18
Cholecalciferol (Vitamin D3) 25 Mcg Tablet (1,000 Units) PO 06/29/23 07:59 25 mcg
DAILY YOHANA Administration
Cyanocobalamin 1,000 mcg 06/01/23 10:00 06/02/23 08:18
Cyanocobalamin 1,000 Mcg Tablet PO 06/29/23 09:59 1,000 mcg
DAILY YOHANA Administration
Dextrose 12.5 grams 06/01/23 22:00
Dextrose 50% (0.5 Grams/Ml) 50 Ml Syringe IV 06/29/23 21:59
[id number] PRN
hypoglycemia
Protocol
Enoxaparin Sodium 40 mg 05/31/23 18:00 06/02/23 17:47
Enoxaparin Sodium 40 Mg/0.4 Ml Syringe SC 06/28/23 17:59 40 mg
QPM YOHANA Administration
Glucagon 1 mg 06/01/23 22:00
Glucagon 1 Mg Vial IM 06/29/23 21:59
PRN PRN
hypoglycemia - no IV access
Protocol
Hydralazine HCl 10 mg 06/02/23 09:50 06/02/23 17:55
Hydralazine 20 Mg/Ml Vial IV 06/30/23 09:49 10 mg
Q4HPRN PRN Administration
Hypertensive urgency
Methylprednisolone Sodium 258 mls @ 258 mls/hr 06/03/23 10:30
Succinate 1,000 mg/ Sodium IV 06/03/23 11:29
Chloride Q24H YOHANA
Methylprednisolone Sodium 258 mls @ 258 mls/hr 06/04/23 09:30
Succinate 1,000 mg/ Sodium IV 06/04/23 10:29
Chloride Q24H YOHANA
Insulin Aspart 0 units 06/02/23 07:30 06/02/23 17:47
Insulin Aspart Low Resistance 300 Units/3 Ml Pen.Injctr SC 06/30/23 07:29 1 units
AC YOHANA Administration
Protocol
Pantoprazole Sodium 40 mg 06/01/23 10:00 06/02/23 08:18
Pantoprazole 40 Mg Delayed Release Tablet PO 06/29/23 09:59 40 mg
DAILY YOHANA Administration
Sodium Chloride 0 flush 05/31/23 16:00
Sodium Chloride 0.9% (Flush) Syringe IV 06/28/23 15:59
PER PROTOCOL YOHANA
Vital Signs
Temp Pulse Resp BP Pulse Ox
98 F 110 18 190/98 97
06/02/23 16:49 06/02/23 16:49 06/02/23 16:49 06/02/23 17:55 06/02/23 16:49
Height 6 ft
Actual Weight 127.913 kg
Body Mass Index (BMI) 38.3
Physical Exam
Physical Exam:
General Appearance/Observation: Well-developed, well-nourished individual in no apparent distress. Good spirits.
Pain/Comfort Assessment: Denies
Mood/Affect: Appropriate
Eyes: Conjunctiva/Lids: normal Pupils: pupils equal round and reactive to light and Accommodation
Ears/Nose/Throat: oral mucosa moist, throat clear. Lips/Teeth/Gums: normal
Neck: No muscle spasm or tenderness
Cardiovascular: Heart: regular, no murmur
Pulses: dorsalis pedis 2+ bilaterally
Respiratory: Respiratory Effort/Chest Expansion: normal Auscultation: Clear to auscultation bilaterally
Gastrointestinal: abdomen not tender, no distension, normal abdominal bowel sounds
Extremities: Edema: None Cyanosis: None Trophic changes: None
Neurology Exam:
Orientation: Alert, Oriented to self, Time, Place
Speech: Intact
Repetition: Intact
Comprehension: Intact
Cranial Nerves:
CNII: Pupillary light reflex: Intact Visual Field: Intact
CN III, IV, : Extraocular muscles: Intact. no nystagmus
CN V: Facial Sensation at Forehead: Intact , Maxilla: Intact, Mandible: Intact
CN VII: Facial movement: Symmetric
CN VIII: Hearing: Normal
CN IX/X: Speech & swallow: Normal, Position of Uvula: Midline
CN XI: Shoulder shrug: Symmetric
CN XII: Tongue protrusion: Midline
Sensory:
Light touch: Intact in bilateral upper and lower extremities. Denies any asymmetry in hands or in the LE's
Reflexes:
Biceps: 3+ right, 2+ left
Patellar: 3+ right, 2+ left
Achilles: 3+ right, 3+ left
Babinski: Downgoing bilaterally
Clonus: None
Agustina: trace on left
Cerebellar: Dysmetria/Ataxia: Maybe slight inaccuracy in right FNF testing. Negative pronator drift.
Musculoskeletal:
Motor: (Manual muscle scale 0-5)
Muscle SA EF WE EE FF FA HF KE DF EHL PF
Right 5 5 5 5 5 5 5 5 4 4 5
Left 5 5 5 5 5 5 5 5 5 5 5
Tone: Normal in all extremities
Range of Motion: Passively within normal limits in all extremities
Lab Results
06/02/23 05:09
06/02/23 05:09
WBC 6.3 10^3/uL (4.8-10.8) 06/02/23 05:09
Hgb 15.1 g/dL (13.0-18.0) 06/02/23 05:09
Hct 41.3 % (39.0-52.0) 06/02/23 05:09
MCV 83.4 fL (80.0-94.0) 06/02/23 05:09
Plt Count 161 10^3/uL (130-400) 06/02/23 05:09
PT 13.5 Sec (11.4-14.6) 05/31/23 09:03
INR 1.05 05/31/23 09:03
Sodium 137 mmol/L (135-145) 06/02/23 05:09
Potassium 5.3 mmol/L (3.5-5.1) H 06/02/23 05:09
Chloride 106 mmol/L (98-107) 06/02/23 05:09
Carbon Dioxide 25 mmol/L (22-30) 06/02/23 05:09
BUN 22 mg/dl (9-20) H 06/02/23 05:09
Creatinine 0.7 mg/dL (0.7-1.3) 06/02/23 05:09
eGFR > 60.00 06/02/23 05:09
Glucose 139 mg/dl (70-99) H 06/02/23 05:09
Hemoglobin A1c Cancelled 06/01/23 15:05
Calcium 9.4 mg/dl (8.4-10.2) 06/02/23 05:09
Total Bilirubin 1.0 mg/dl (0.2-1.3) 06/01/23 05:01
AST 25 U/L (17-59) 06/01/23 05:01
ALT 65 U/L (0-50) H 06/01/23 05:01
Alkaline Phosphatase 59 U/L (38-126) 06/01/23 05:01
Total Protein 5.6 g/dl (6.3-8.2) L 06/01/23 05:01
Albumin 3.6 g/dl (3.5-5.0) 06/01/23 05:01
Diagnostic Results
As per HPI.
Comorbidities / Impairment Group
Comorbidities:
Impairment Group:
Multiple sclerosis
Assessment / Plan
Plan
Assessment:
52 year old male with demyelinating disease, could be multiple sclerosis, MOGAD, or NMO which would be a new diagnosis.
PM&R PT/OT to increase independence with ADLs, improve balance, coordination, endurance, strength, mobility, community reintegration, decreased burden of care on others and family education.
Weakness/demyelinating disease: Is currently on high-dose IV steroids for total of 5 days today is day 3.
-if after completion of steroids, if not significant improvement, per neurology could consider plasma exchange - decision Tuesday or Tuesday. Plasma exchange would mean most likely another 7 to 10 days in the hospital for these treatments.
Pain: acetaminophen as needed. Some paresthesias but sounds like mild at present time. Could consider neuroleptic agent such as gabapentin for paresthesias if worsens or more neuropathic pain exists.
Bowel: Colace and Senna, PRN bisacodyl.
Bladder: Monitor for any bladder dysfunction or retention
GI Prophylaxis: Pantoprazole
DVT Prophylaxis: lovenox sq
Morbid obesity: Continue to certified drug counselor patient about diet adjustments to control obesity. Body habitus and increased force to move body and extremities causes further difficulty with functional tasks.
Safety: Continue to reinforce assistance with all transfers.
Code Status: Full code
Dispo (date/plan/equipment needs): Home with family care. Social history reviewed.
Functional and Medical Goals: Modified Independent with ADL�s, ambulation, transfers
Summary
-
Things that must be addressed in Hospital prior to discharge:
1. Please continue bedside PT/OT.
2. Still awaiting neurology input on plasma exchange treatments - waiting until after full 5 days steroids completed. Would likely need to complete the plasma exchange before transfer to rehab.
Discharge Destination: Could be good candidate for acute rehab presently with weakness, balance difficulty, gait dysfunction. But timing is questionable with possible need for plasma exchange treatments. Will continue to follow progress with
bedside PT/OT during steroid and then possible plasma exchange treatments to see if still significant deficits and rehabilitation needs.
Summary of recommendations:
- Discharge Destination: Likely acute rehab/[facility] after steroid/plasma treatments
Will continue to follow patient.
Thank you for allowing me to care for your patient. Please contact me with any questions or concerns.
Data Reviewed
-
Radiology: Image Personally Visualized and interpreted and Report Reviewed by me
Labs: Labs Reviewed by me
Comments
-
This note was dictated using a voice recognition system. Please excuse any typographical errors from telephoto engineer. If you believe there are any discrepancies, please notify our office.
--- NOTE | 2023-06-02 19:46 | PTCARENOTE ---
Patient given second dose of Hydralazine 10mg IV. BP post 159/96. Patient asymptomatic.
[2023-06-02 21:19] LABS: Glucose - Point of Care 235 mg/dl (70-99)
[2023-06-02 22:22] LABS: Albumin 3.71 g/dL (3.75-5.01); Alpha 1 Globulin 0.29 g/dL (0.19-0.46); SPEP IFE Reflex IFE Done; Total Protein-Electrophoresis 5.6 g/dL (6.3-8.2)
[2023-06-02 23:48] LABS: IgA 63 mg/dL (68-408); IgG 406 mg/dL (768-1632); IgM 18 mg/dL (35-263)
[2023-06-03] VITALS (7 sets, daily range): BP systolic 136–179; BP diastolic 68–96; PULSE 87; O2SAT 98
[2023-06-03] MEDS: TYLENOL 650 MG PO (06:15)
[2023-06-03 06:21] LABS: Hematocrit 40.7 % (39.0-52.0); Hemoglobin 14.8 g/dL (13.0-18.0); Mean Corp Hgb Conc. 36.4 g/dL (33.0-37.0); Mean Corpuscular Hgb 30.6 pg (27.0-31.0); Mean Corpuscular Volume 84.3 fL (80.0-94.0); Mean Platelet Volume 10.1 fL (7.4-10.4); Platelet Count 160 10^3/uL (130-400); Red Blood Cell Count 4.83 10^6/uL (4.70-6.10); Red Cell Dist. Width 13.4 % (11.5-14.5); White Blood Cell Count 5.5 10^3/uL (4.8-10.8)
[2023-06-03 06:40] LABS: Blood Urea Nitrogen 22 mg/dl (9-20); Calcium 9.4 mg/dl (8.4-10.2); Carbon Dioxide 26 mmol/L (22-30); Chloride 104 mmol/L (98-107); Estimated Creatinine Clearance > 125 ml/min; Glucose 133 mg/dl (70-99); Potassium 4.7 mmol/L (3.5-5.1); Sodium 137 mmol/L (135-145); eGFR > 60.00
--- NOTE | 2023-06-03 07:45 | W.PN.HOSP.TC ---
Addendum entered and electronically signed by Erasmo Deleon MD 06/03/23 21:51:
Attending Addendum-
I saw and evaluated the patient. I reviewed the resident�s note and agree with findings and plan as documented in the resident�s note. feels improvement after 4 doses of steroids. able to stand from seated position. Full 12 point ROS reviewed and
negative except as documented Exam: GEN NAD heart RRR lungs clear and soft LE trace b/l edema Neuro AAO x 3 MS 4+/5 RLE 5/5 LUE LLE RUE sensation intact patellar reflexes 2+, PEERLA, neg babinski neck supple Plan:
# RLE Weakness- improving- MS vs TM vs NMO vs MOGAD- multiple labs pending-cont high dose IV steroids day 4/. follow labs in am, PT OT, for plasmapheresis while in house after completion of steroids, acute rehab post PLEX.
# Hyperkalemia- resolved- repeat BMP in am
# Hyperglycemia- likely steroid induced, cont SSI, Hba1c 4.7 cont to monitor while on steroids
# 1 cm Adrenal Adenoma- f/u as OP, will d/w patient and family
# Hyponatremia- resolved, repeat BMP in am
# DVT proph- lovenox
# GI proph- cont PPI
Time spent coordinating care, review of plan of care with resident, review of records, med rec, consults, notes, labs, rads, d/w nursing, family, neurology - 55 mins
Original Note:
Today's Communication/Plan
-
Continue IV steroids
PT evaluation
Assessment / Plan
Assessment / Plan
IMPRESSION: 52-year-old with no significant medical history presents with dizziness and right lower extremity weakness. Possible etiologies include multiple sclerosis, transverse myelitis, stroke
Dizziness
Abrupt onset of right lower extremity weakness
Incidentaloma
Plan
#Dizziness
#Abrupt onset of right lower extremity weakness
Neuro input appreciated, continue to follow
MRI brain ordered- Mild signal alteration in the bilateral cerebral white matter, right middle cerebellar peduncle, and upper cervical spinal cord. These findings would be considered most suspicious for demyelination given the poor neuro input, most
likely a flare of demyelinating disease, could be multiple sclerosis,MOGAD, or NMO
Continue IV methylprednisolone(D4)
Continue Protonix for GI prophylaxis
Lumbar puncture, pending CSF analysis pending
PT/OT
Acute rehabilitation following hospitalization
# Hyperglycemia
Most likely increase is from steroid use.
A1c 4.7 06/01/2023
Start SSI, monitor glucose level
# Hypertension
Start Amlodipine for BP
Incidentaloma
Follow-up as outpatient
Monitor
DVT prophylaxis-Lovenox
Anticipated Discharge: 24 - 48 hours
Objective Data
-
Labs:
Laboratory Results
06/03/23
04:51
WBC 5.5
Hgb 14.8
Hct 40.7
Plt Count 160
Sodium 137
Potassium 4.7
Chloride 104
Carbon Dioxide 26
BUN 22 H
Creatinine 0.7
Glucose 133 H
Calcium 9.4
Vital Signs:
Vital Signs
Temp Pulse Resp BP Pulse Ox
97.6 F 80 18 136/68 97
06/03/23 07:30 06/03/23 07:30 06/03/23 07:30 06/03/23 03:31 06/03/23 07:30
I&O
06/02/23 06/03/23 06/04/23
06:59 06:59 06:59
Intake Total 1480 / 1480 1030 / 1030
Output Total 1075 / 1075 640 / 640
Balance 405 / 405 390 / 390
Review of Systems
-
All other systems: Reviewed and negative (Except as documented)
Physical Exam
-
General: Well Developed
HEENT: Normocephalic
Respiratory: Clear to Auscultation; Negative Wheezes or Rales
Cardiac: Regular Rhythm and S1/S2
GI: Soft, Nontender and Nondistended
Musculoskeletal: No Clubbing, No Edema and Other (Motor strength is 5/5 bilateral upper extremities. 4/5 right lower extremity. 5/5 left lower extremity)
Skin: Warm
Neuro: Awake, Alert, Oriented and AO x 3
Psych: Calm
Data Reviewed
-
Labs: Labs Reviewed by me and Discussed with Physician
[2023-06-03 07:56] LABS: Glucose - Point of Care 138 mg/dl (70-99)
[2023-06-03] MEDS: NOVOLOG FLEXPEN-LOW RESISTANCE SC (08:38)
[2023-06-03] MEDS: VITAMIN B-12 1000 MCG PO (08:39)
[2023-06-03] MEDS: VITAMIN D3 (cholecalciferol) 25 MCG PO (08:39)
[2023-06-03] MEDS: PROTONIX 40 MG PO (08:40)
[2023-06-03] MEDS: SOLU-MEDROL 258 MG IV (08:44)
--- NOTE | 2023-06-03 09:41 | CM ---
PT and OT indicated acute rehab at [facility].
Physiatry Dr Dickson evaluated pt and recommended acute Care
Spoke with [facility] who can accept him after auth with his insurance.
Spoke with patient he is in agreement with [facility] if accepted.
[facility] if after auth
[2023-06-03 10:21] LABS: Vitamin B1, Whole Blood 157 nmol/L (70-180)
[2023-06-03] MEDS: COMPAZINE 5 MG IV (10:51)
[2023-06-03] MEDS: TORADOL 30 MG IV (10:52)
--- NOTE | 2023-06-03 11:21 | W.PN.NEURO.1 ---
Addendum entered and electronically signed by Yamil Bueno MD 06/03/23 12:53:
I saw and evaluated the patient I reviewed the note by Izzy Subramanian agree with the findings the following comments:
One 52-year-old man with no medical history besides obesity presented to hospital with constellation of symptoms initially beginning with dizziness and vertigo and then developing into right leg weakness and significant ambulatory difficulty, brain
and spine MRIs suggestive of demyelinating disease and has been being treated with IV steroids. He reports he has not had much significant improvement in the gait abnormalities over the right leg weakness, denies any urinary retention or urinary
incontinence or bowel incontinence. Significant headache today and didn't sleep well last night.
Neurologic examination shows normal mental status, upward beating nystagmus on upgaze, normal upper extremity strength, right leg is 4/5 hip flexion and ankle dorsiflexion. Left leg 5/5 hip flexion knee extension ankle dorsiflexion and
plantarflexion. Hyperreflexic throughout with clonus on the right ankle and Agustina's on the left hand. Gait is significantly impaired not able to walk without assistance and shows right leg weakness.
Assessment: Most likely new diagnosis and flare of demyelinating disease, could be multiple sclerosis, NMO or MOGAD.
Recommendations
-Follow labwork, expect MOGAD and NMO antibodies will take 1-2 weeks
-Gabapentin 300 mg tonight to help with sleep
-For headache give IV Prochlorperazine and Toradol
-Continue steroids today is day 06/09
-Consideration for plasma exchange if no significant response in leg weakness and gait issues by tomorrow, the last day of steroids
Original Note:
Today's Communication / Plan
-
.
Neuro Assessment/Plan
Assessment
This is a 52-year-old male who presented to on 05/31/23 with report of abrupt onset RLE weakness and three falls at home starting on 05/28/23. Earlier this month starting on 05/06/23, patient experienced flu-like symptoms and dizziness and completed
Cedfdinir and steroids for treatment of otitis media and sinusitis.
-CT head 05/18/23: No acute intracranial abnormality. Paranasal sinus mucosal disease/sinusitis.
-Lumbar Spine MRI 05/31/23: Minimal degenerative disk and joint disease in the lumbar spine. No mass, fluid collection or abnormal enhancement on postcontrast imaging. Mild central canal stenosis at L4-5.
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 Differential includes the possibility of an infection, inflammation, spinal cord infarction or demyelinating process such as multiple
sclerosis and/or Lyme disease. Neoplasm much less likely however is included in the differential. No adjacent abnormal enhancement in the paraspinal soft tissues. Follow-up with contrast-enhanced brain and cervical spine MRI imaging is recommended
for complete evaluation. Small focal central disk herniation at T7-8 causing mild cord compression. No myelopathy at this level. 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 1 cm nodule in the right adrenal gland most consistent
with an adenoma.
-CSF 05/31/23: WBC 10, glucose 72, protein 123.
-MRI brain 06/01/23: Mild signal alteration in the bilateral cerebral white matter, right middle cerebellar peduncle, and upper cervical spinal cord. These findings would be considered most suspicious for demyelination given the clinical concern for
multiple sclerosis. Postcontrast enhancement of the lesion in the upper cervical spinal cord suggesting active demyelination.
I. MRI thoracic spine with signal intensities at T1-T2, T5-T-6, T10, and T11-T12. MRI brain with signal intensities in bilateral cerebral white matter, right middle cerebellar peduncle, and upper cervical spinal cord. Changes are suggestive of
multiple sclerosis or atypical demyelinating process such as NMO or MOG.
II. Right adrenal gland 1 cm nodule.
III. Recent otitis media/sinusitis.
Plan
-Provide prochlorperazine 5mg IV and Toradol 30mg IV x1 now for headache.
-Initiate gabapentin 300mg HS for sleep.
-Continue Methylprednisolone 1gm IV x5 days. (Today is day 4/5). If patient is not significantly improved by the end of steroid course on 06/04/23, will strongly consider initiating PLEX.
-Additional labs and CSF results ordered/pending
-Bladder scan/straight cath protocol
-PT/OT evaluations
-DVT prophylaxis
-Cyanocobalamin replacement for B12 level <400.
-Continue vitamin D3 replacement.
-Will follow pending results.
-Patient will need to follow-up with Neurology as an outpatient in about 4 weeks, may see the [employer] or one of the physicians. Also provided patient with contact info for [facility] to eventually see an MS specialists as an outpatient.
Subjective/Objective
Subjective Data
Date of Service: June 03, 2023
Patient reports a 6/10 headache and insomnia overnight which he attributes to his mind racing about his current medical condition. His RLE feels minimally improved again today but his walking is still very abnormal. He denies any dizziness, vision
changes, speech/swallow difficulty, nausea, chest pain, palpitations, and shortness of breath.
Objective Data
Vital Signs
Temp Pulse Resp BP Pulse Ox
97.6 F 80 18 146/85 97
06/03/23 07:30 06/03/23 07:30 06/03/23 07:30 06/03/23 07:30 06/03/23 07:30
Lab Results
06/03/23 04:51
06/03/23 04:51
PT 13.5 Sec (11.4-14.6) 05/31/23 09:03
INR 1.05 05/31/23 09:03
APTT 24.9 Sec (23.4-35.0) 05/31/23 09:03
Sodium 137 mmol/L (135-145) 06/03/23 04:51
Potassium 4.7 mmol/L (3.5-5.1) 06/03/23 04:51
BUN 22 mg/dl (9-20) H 06/03/23 04:51
Glucose 133 mg/dl (70-99) H 06/03/23 04:51
Calcium 9.4 mg/dl (8.4-10.2) 06/03/23 04:51
Whole Bld Vitamin B1 157 nmol/L (70-180) 05/31/23 09:03
Vitamin B12 387 pg/ml (239-931) 05/31/23 09:03
Patient Allergies
No Known Allergies Allergy (Unverified 05/18/23 16:12)
Review of Systems
-
History Source: Patient
Constitutional: Sleep Disturbance
EENT: Negative Blurry Vision, Decreased Vision or Swallowing Difficulty
Respiratory: Negative Cough or Trouble Breathing
Cardiac: Negative Chest Pain
Abdomen/GI: Negative Constipated or Incontinence of Stool
Genitourinary: Negative Incontinence or Difficulty Voiding
Neuro: Headache, Weakness and Ataxia; Negative Dizzy, Numbness or Speech Problem
Physical Exam
-
General: Well Developed, Well Nourished and No Apparent Distress
Eyes: No Ptosis and PERRLA
HEENT: Normocephalic and Atraumatic
Neck: Full Range of Motion
Respiratory: No Dyspnea
GI: Non-distended
Extremities: No Clubbing, No Cyanosis and No Edema
Psych: Unremarkable
Extended Neurological Exam
Mood & Affect: Mood Unremarkable and Affect Unremarkable
Attention Span & Concentration: Awake, Alert, Interactive and No Difficulty with 2 Step Request
Memory: Unremarkable (AAOx3) and Able to Recall
Tremor: Hand Tremor Absent and Head Tremor Absent
Involuntary Movement: None
Speech: Quality Unremarkable, Quantity Unremarkable and Rate of Production Unremarkable
Cranial Nerve II: Left Eye: Pupillary Reactivity Unremarkable, Pupillary Size Unremarkable and Visual Rivers Intact
Cranial Nerve II: Right Eye: Pupillary Reactivity Unremarkable, Pupillary Size Unremarkable and Visual Rivers Intact
Cranial Nerves III, IV, : Extraocular Movement: Extraocular Movement Full in all Directions
Cranial Nerve V: Facial Sensation: Intact to Light Touch
Cranial Nerve VII: Facial Symmetry: Normal Facial Symmetry
Cranial Nerve VIII: Hearing: Unremarkable Hearing to Normal Conversational Volume
Cranial Nerves IX, X: Palate Movement: Palate Elevation Symmetric
Cranial Nerve XI: Shoulder Shrug: Unremarkable
Cranial Nerve XII: Tongue Protusion: Midline
Muscle Strength, Overall: Reduced on Right (Rip hip flexion/extension 5-/5, R plantar/dorsiflexion 4/5)
Muscle Bulk & Tone: Bulk Unremarkable and Tone Unremarkable
Pronator Drift: No Drift in Upper Extremities and No Drift in Lower Extremities
Deep Tendon Reflexes: 3+; Negative Clonus
Cold Sensation: Reduced (absent in RLE distally)
Vibration Sensation: Reduced (absent in RLE distally)
Touch Sensation: Double Simultaneous Stimulation Unremarkable
Coordination: [id number] Testing Unremarkable
Babinski Sign: Absent Bilaterally
Gait & Station: Other (gait ataxic); Negative Up from Seated Without Problem
Data Reviewed
-
MRI Head: Report Reviewed and Image Reviewed
MRI Thoracic Spine: Report Reviewed and Image Reviewed
MRI Lumbar Spine: Report Reviewed and Image Reviewed
Medical Test Reports: Report Reviewed (CSF)
Labs: Report Reviewed
Reviewed with: Physician and Patient
Medications
-
Active Medications
Generic Name Dose Route Start Last Admin
Trade Name Freq PRN Reason Stop Dose Admin
Acetaminophen 650 mg 06/02/23 13:04 06/03/23 06:15
Acetaminophen 325 Mg Tablet PO 06/30/23 13:03 650 mg
Q6HPRN PRN Administration
mild pain/ fever>100.5F
Cholecalciferol 25 mcg 06/01/23 08:00 06/03/23 08:39
Cholecalciferol (Vitamin D3) 25 Mcg Tablet (1,000 Units) PO 06/29/23 07:59 25 mcg
DAILY YOHANA Administration
Cyanocobalamin 1,000 mcg 06/01/23 10:00 06/03/23 08:39
Cyanocobalamin 1,000 Mcg Tablet PO 06/29/23 09:59 1,000 mcg
DAILY YOHANA Administration
Dextrose 12.5 grams 06/01/23 22:00
Dextrose 50% (0.5 Grams/Ml) 50 Ml Syringe IV 06/29/23 21:59
[id number] PRN
hypoglycemia
Protocol
Enoxaparin Sodium 40 mg 05/31/23 18:00 06/02/23 17:47
Enoxaparin Sodium 40 Mg/0.4 Ml Syringe SC 06/28/23 17:59 40 mg
QPM YOHANA Administration
Gabapentin 300 mg 06/03/23 22:00
Gabapentin 300 Mg Capsule PO 07/01/23 21:59
HS YOHANA
Glucagon 1 mg 06/01/23 22:00
Glucagon 1 Mg Vial IM 06/29/23 21:59
PRN PRN
hypoglycemia - no IV access
Protocol
Hydralazine HCl 10 mg 06/02/23 09:50 06/02/23 17:55
Hydralazine 20 Mg/Ml Vial IV 06/30/23 09:49 10 mg
Q4HPRN PRN Administration
Hypertensive urgency
Methylprednisolone Sodium 258 mls @ 258 mls/hr 06/04/23 09:30
Succinate 1,000 mg/ Sodium IV 06/04/23 10:29
Chloride Q24H YOHANA
Insulin Aspart 0 units 06/02/23 07:30 06/03/23 08:38
Insulin Aspart Low Resistance 300 Units/3 Ml Pen.Injctr SC 06/30/23 07:29 Not Given
AC YOHANA
Protocol
Pantoprazole Sodium 40 mg 06/01/23 10:00 06/03/23 08:40
Pantoprazole 40 Mg Delayed Release Tablet PO 06/29/23 09:59 40 mg
DAILY YOHANA Administration
Sodium Chloride 0 flush 05/31/23 16:00
Sodium Chloride 0.9% (Flush) Syringe IV 06/28/23 15:59
PER PROTOCOL YOHANA
Home Medications
�Medication �Instructions �Recorded
cholecalciferol (vitamin D3) 25 25 mcg PO DAILY Supplement 05/31/23
mcg (1,000 unit) chewable tablet
(Vitamin D3)
multivitamin with minerals-folic 1 tab PO DAILY Supplement 05/31/23
acid 80 mcg chewable tablet
[2023-06-03 11:49] LABS: Glucose - Point of Care 180 mg/dl (70-99)
[2023-06-03] MEDS: NOVOLOG FLEXPEN-LOW RESISTANCE 1 UNITS SC ×2 (12:40→17:38)
[2023-06-03] MEDS: NORVASC 5 MG PO (14:44)
[2023-06-03 17:35] LABS: Glucose - Point of Care 175 mg/dl (70-99)
[2023-06-03] MEDS: LOVENOX 40 MG SC (17:37)
[2023-06-03 19:09] LABS: CSF VDRL (T. pallidum) Non Reactive (Non Reactive)
[2023-06-03] MEDS: NEURONTIN 300 MG PO (21:45)
[2023-06-03 21:57] LABS: Glucose - Point of Care 247 mg/dl (70-99)
[2023-06-04 03:00] VITALS: BP 133/79
--- NOTE | 2023-06-04 07:13 | W.PN.NEURO.1 ---
Today's Communication / Plan
-
-Patient starting to show response to IV steroids today with improved right leg weakness and improved gait though still with right leg weakness and significant gait abnormality, although standard course of IV steroids is 5 days would recommend we
pursue another 1-2 days of IV steroids given his late response to therapy, would favor Prednisone PO taper after finishing PO steroids
-Reassess tomorrow his degree of leg weakness and gait impairment, if still with significant disability plasma exchange still to be considered given likely to benefit transverse myelitis
-Monitor for urinary or bowel symptoms, none so far
-Pending antibodies for NMO and MOGAD
-They will get appointment at [facility] MS/Neuroimmunology in the coming weeks
-Continue Gabapentin 300 mg qhs, insomnia will probably improve once off steroids
Discussed with patient and his family, will continue to follow
Neuro Assessment/Plan
Assessment
This is a 52-year-old male who presented to on 05/31/23 with report of abrupt onset RLE weakness and three falls at home starting on 05/28/23. Earlier this month starting on 05/06/23, patient experienced flu-like symptoms and dizziness and completed
Cedfdinir and steroids for treatment of otitis media and sinusitis.
-CT head 05/18/23: No acute intracranial abnormality. Paranasal sinus mucosal disease/sinusitis.
-Lumbar Spine MRI 05/31/23: Minimal degenerative disk and joint disease in the lumbar spine. No mass, fluid collection or abnormal enhancement on postcontrast imaging. Mild central canal stenosis at L4-5.
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 Differential includes the possibility of an infection, inflammation, spinal cord infarction or demyelinating process such as multiple
sclerosis and/or Lyme disease. Neoplasm much less likely however is included in the differential. No adjacent abnormal enhancement in the paraspinal soft tissues. Follow-up with contrast-enhanced brain and cervical spine MRI imaging is recommended
for complete evaluation. Small focal central disk herniation at T7-8 causing mild cord compression. No myelopathy at this level. 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 1 cm nodule in the right adrenal gland most consistent
with an adenoma.
-CSF 05/31/23: WBC 10, glucose 72, protein 123.
-MRI brain 06/01/23: Mild signal alteration in the bilateral cerebral white matter, right middle cerebellar peduncle, and upper cervical spinal cord. These findings would be considered most suspicious for demyelination given the clinical concern for
multiple sclerosis. Postcontrast enhancement of the lesion in the upper cervical spinal cord suggesting active demyelination.
Likely flare of new demyelinating disease, multiple sclerosis versus NMO (neuromyelitis optica) are felt most likely, MOGAD is also possible but more rare and less likely
Subjective/Objective
Subjective Data
Date of Service: June 04, 2023
Patient seeing some improvement in right leg weakness and walking abilities though not normal, no bowel or urinary incontinence or urinary retention
Objective Data
Vital Signs
Temp Pulse Resp BP Pulse Ox
97.7 F 66 18 133/79 98
06/04/23 03:00 06/04/23 03:00 06/04/23 03:00 06/04/23 03:00 06/04/23 03:00
PT 13.5 Sec (11.4-14.6) 05/31/23 09:03
INR 1.05 05/31/23 09:03
APTT 24.9 Sec (23.4-35.0) 05/31/23 09:03
Sodium 137 mmol/L (135-145) 06/03/23 04:51
Potassium 4.7 mmol/L (3.5-5.1) 06/03/23 04:51
BUN 22 mg/dl (9-20) H 06/03/23 04:51
Glucose 133 mg/dl (70-99) H 06/03/23 04:51
Calcium 9.4 mg/dl (8.4-10.2) 06/03/23 04:51
Whole Bld Vitamin B1 157 nmol/L (70-180) 05/31/23 09:03
Vitamin B12 387 pg/ml (708-089) 05/31/23 09:03
Patient Allergies
No Known Allergies Allergy (Unverified 05/18/23 16:12)
Review of Systems
-
History Source: Patient
All other systems: Reviewed and negative
Constitutional: No Symptoms
EENT: No Symptoms Reported
Respiratory: No Symptoms
Cardiac: No Symptoms
Abdomen/GI: No Symptoms
Genitourinary: No Symptoms
Musculoskeletal: No Symptoms
Skin: No Symptoms
Neuro: Weakness and See existing Neuro Note
Endocrine: No Symptoms
Hematologic / Lymphatic: No Symptoms
Allergy / Immunology: No Symptoms
Physical Exam
-
General: Comfortable and Obese
Eyes: No Ptosis
HEENT: Normocephalic
Neck: No Bruits Bilaterally
Respiratory: Clear to Auscultation; Negative Wheezes
Cardiac: Regular Rhythm and No Murmur
GI: Normal Bowel Sounds, Soft and Non-tender
Skin: Unremarkable
Extremities: No Clubbing
Psych: Unremarkable and Intact Judgement/Insight
Extended Neurological Exam
Mood & Affect: Mood Unremarkable and Affect Unremarkable
Attention Span & Concentration: Awake, Alert and Interactive
Memory: Unremarkable
Tremor: Hand Tremor Absent
Involuntary Movement: None
Speech: Quality Unremarkable and Quantity Unremarkable; Negative Expressive Aphasia, Receptive Aphasia or Dysarthric
Cranial Nerve II: Left Eye: Pupillary Reactivity Unremarkable, Pupillary Size Unremarkable and Visual Rivers Intact
Cranial Nerve II: Right Eye: Pupillary Reactivity Unremarkable, Pupillary Size Unremarkable and Visual Rivers Intact
Cranial Nerves III, IV, : Extraocular Movement: Extraocular Movement Full in all Directions and Other (No nystagmus noted, notes diplopia with left gaze)
Cranial Nerve VII: Facial Symmetry: Normal Facial Symmetry
Cranial Nerve VIII: Hearing: Unremarkable Hearing to Normal Conversational Volume
Cranial Nerves IX, X: Palate Movement: Palate Elevation Symmetric
Cranial Nerve XII: Tongue Protusion: Midline
Muscle Strength, Overall: Other (Shoulder abduction arm flexion 5/5, normal fine finger movements and finger flexion, right leg hip flexion 4+/5 improved from yesterday's exam, right ankle dorsiflexion 4+/5 improved from yesterday's exam, hip
abduction/adduction knee extension 5/5 bilaterally)
Muscle Bulk & Tone: Bulk Unremarkable
Pronator Drift: No Drift in Upper Extremities
Deep Tendon Reflexes: Other (Hyperreflexic, right ankle non sustained clonus, left ankle 3+, patella hyperreflexic 3+ bilaterally with crossed adduction, biceps brachioradialis 3+ symmetric, left positive Arceo's)
Cold Sensation: Other (Reduced on right leg)
Vibration Sensation: Other (Reduced on right leg)
Touch Sensation: Other (Reduced on right leg)
Coordination: Tynsos-qjfh-artpiu Testing Unremarkable
Gait & Station: Other (Can walk but requires assistance, without a walker is slow and unsteady, ataxic and right leg is weak)
Data Reviewed
-
MRI Head: Report Reviewed and Image Reviewed
MRI Thoracic Spine: Report Reviewed and Image Reviewed
MRI Lumbar Spine: Report Reviewed and Image Reviewed
Labs: Report Reviewed
[2023-06-04 07:22] LABS: Hemoglobin 14.7 g/dL (13.0-18.0); Mean Corp Hgb Conc. 36.8 g/dL (33.0-37.0); Mean Corpuscular Hgb 30.4 pg (27.0-31.0); Mean Corpuscular Volume 82.8 fL (80.0-94.0); Platelet Count 147 10^3/uL (130-400); Red Blood Cell Count 4.83 10^6/uL (4.70-6.10); Red Cell Dist. Width 13.3 % (11.5-14.5); White Blood Cell Count 4.6 10^3/uL (4.8-10.8)
[2023-06-04 07:31] VITALS: BP 145/83
[2023-06-04 07:37] LABS: Glucose - Point of Care 158 mg/dl (70-99)
[2023-06-04 07:48] LABS: Blood Urea Nitrogen 26 mg/dl (9-20); Calcium 9.2 mg/dl (8.4-10.2); Carbon Dioxide 28 mmol/L (22-30); Chloride 104 mmol/L (98-107); Estimated Creatinine Clearance > 125 ml/min; Glucose 138 mg/dl (70-99); Potassium 4.9 mmol/L (3.5-5.1); Sodium 138 mmol/L (135-145); eGFR > 60.00
[2023-06-04 08:30] LABS: Lyme Disease DNA by PCR Not Detected; Lyme Source Serum
[2023-06-04] MEDS: NOVOLOG FLEXPEN-LOW RESISTANCE 1 UNITS SC (08:46)
[2023-06-04] MEDS: PROTONIX 40 MG PO (08:47)
[2023-06-04] MEDS: VITAMIN B-12 1000 MCG PO (08:47)
[2023-06-04] MEDS: VITAMIN D3 (cholecalciferol) 25 MCG PO (08:47)
[2023-06-04] MEDS: NORVASC 5 MG PO (08:47)
[2023-06-04] MEDS: FLUSH (NSS) 2 FLUSH IV (08:48)
[2023-06-04] MEDS: SOLU-MEDROL 258 MG IV (08:48)
--- NOTE | 2023-06-04 11:42 | W.PN.HOSP.TC ---
Today's Communication/Plan
-
Continue with high-dose steroids
and monitor blood pressure
PPI
Continue with rehab
Assessment / Plan
Assessment / Plan
IMPRESSION: 52-year-old with no significant medical history presents with dizziness and right lower extremity weakness. Possible etiologies include multiple sclerosis, transverse myelitis, stroke
#Dizziness
#Abrupt onset of right lower extremity weakness
Neuro input appreciated, continue to follow
MRI brain ordered- Mild signal alteration in the bilateral cerebral white matter, right middle cerebellar peduncle, and upper cervical spinal cord. These findings would be considered most suspicious for demyelination given the poor neuro input, most
likely a flare of demyelinating disease, could be multiple sclerosis,MOGAD, or NMO
Plan will be to continue Solu-Medrol 1 g till tomorrow and then start 50 mg prednisone on Tuesday
Patient with significant improvement in the weakness does plan will be to hold off on plasmapheresis for now
Continue Protonix for GI prophylaxis
Lumbar puncture, pending CSF analysis pending
PT/OT
Started on B12 supplementation. Continue with gabapentin started this admission. Slept well overnight.
Acute rehabilitation following hospitalization
# Hyperglycemia
Most likely increase is from steroid use.
A1c 4.7 06/01/2023
Start SSI, monitor glucose level
# Hypertension primary
Start Amlodipine for BP
Hydralazine as needed for greater than 150 systolic
Adrenal adenoma
Follow-up as outpatient
Monitor
DVT prophylaxis-Lovenox
Discussed with neurology
Anticipated Discharge: > 48 hours
Subjective/Interval History
-
Date of Service: June 04, 2023
States significant improvement in RLE weakness
feeling lot better compared to yesterday
remains with intermittent numbness in hands b/l
no vision problems
walking with walker
Objective Data
-
Labs:
Laboratory Results
06/04/23 06/04/23
06:03 06:04
WBC 4.6 L
Hgb 14.7
Hct 40.0
Plt Count 147
Sodium 138
Potassium 4.9
Chloride 104
Carbon Dioxide 28
BUN 26 H
Creatinine 0.7
Glucose 138 H
Calcium 9.2
Vital Signs:
Vital Signs
Temp Pulse Resp BP Pulse Ox
97.6 F 68 16 145/83 94
06/04/23 07:31 06/04/23 08:47 06/04/23 07:31 06/04/23 08:47 06/04/23 09:00
I&O
06/03/23 06/04/23 06/05/23
06:59 06:59 06:59
Intake Total 1030 / 1030 1380 / 1380
Output Total 640 / 640
Balance 390 / 390 1380 / 1380
Physical Exam
-
General: Well Developed, Well Nourished, No Apparent Distress and Morbidly Obese
HEENT: Normocephalic
Respiratory: Clear to Auscultation; Negative Wheezes or Rales
Cardiac: Regular Rhythm and S1/S2
GI: Soft, Nontender, Nondistended and Normal Bowel Sounds
Musculoskeletal: No Clubbing and No Edema
Skin: Warm
Neuro: Awake, Alert, Oriented and AO x 3
Psych: Calm
[2023-06-04 12:14] LABS: Glucose - Point of Care 125 mg/dl (70-99)
[2023-06-04] MEDS: NOVOLOG FLEXPEN-LOW RESISTANCE SC (12:15)
[2023-06-04 15:23] VITALS: BP 154/89
[2023-06-04 16:01] VITALS: BP 174/94; PULSE 90; O2SAT 98
[2023-06-04 16:31] LABS: Glucose - Point of Care 262 mg/dl (70-99)
[2023-06-04] MEDS: APRESOLINE 10 MG IV ×2 (16:37→20:37)
[2023-06-04] MEDS: NOVOLOG FLEXPEN-LOW RESISTANCE 3 UNITS SC (16:39)
[2023-06-04] MEDS: LOVENOX 40 MG SC (18:29)
[2023-06-04 20:19] VITALS: BP 168/96
[2023-06-04] MEDS: NEURONTIN 300 MG PO (20:34)
[2023-06-04] MEDS: TYLENOL 650 MG PO (20:36)
[2023-06-04 21:11] LABS: Glucose - Point of Care 163 mg/dl (70-99)
[2023-06-04 23:43] VITALS: BP 151/71
[2023-06-05] VITALS (12 sets, daily range): BP systolic 91–193; BP diastolic 75–111; PULSE 84–96
[2023-06-05 01:11] LABS: Albumin Index 23.7 ratio (0.0-9.0); Albumin, CSF 86 mg/dL (0-35); Albumin, Serum 3624 mg/dL (3500-5200); CSF IgG Synthesis Rate 26.7 mg/d (<=8.0); CSF IgG/Albumin Ratio 0.11 ratio (0.09-0.25); CSF Oligoclonal Bands Positive (Negative); CSF Oligoclonal Bands Number 11 Bands (0-1); IgG 385 mg/dL (768-1632); IgG, CSF 9.6 mg/dL (0.0-6.0)
[2023-06-05 07:25] LABS: Glucose - Point of Care 143 mg/dl (70-99)
--- NOTE | 2023-06-05 07:54 | W.PN.NEURO.1 ---
Today's Communication / Plan
-
-Continue Gabapentin 300 mg qhs
-Finish IV steroids
-50 mg Prednisone tomorrow, taper off over 10 days
-Given still with significant gait impairment which represents new disability and not to baseline and a suboptimal response to steroids, discussed the options of aggressive PT starting this week versus pursuing plasma exchange. Discussed my
preference for plasma exchange given a good chance this will improve symptoms further in an attempt to get him closer to his baseline function and reduce disability from transverse myelitis, discussed risks and reasoning and benefits and we decided
to pursue plasmapharesis
-Place plasmapharesis catheter, consult hematolgoy and interventional radiology, plan for generally every other day sessions for up to 5 sessions depending on response
-Still awaiting antibodies for NMO and MOGAD
Will follow
Neuro Assessment/Plan
Assessment
This is a 52-year-old male who presented to on 05/31/23 with report of abrupt onset RLE weakness and three falls at home starting on 05/28/23. Earlier this month starting on 05/06/23, patient experienced flu-like symptoms and dizziness and completed
Cedfdinir and steroids for treatment of otitis media and sinusitis.
-CT head 05/18/23: No acute intracranial abnormality. Paranasal sinus mucosal disease/sinusitis.
-Lumbar Spine MRI 05/31/23: Minimal degenerative disk and joint disease in the lumbar spine. No mass, fluid collection or abnormal enhancement on postcontrast imaging. Mild central canal stenosis at L4-5.
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 Differential includes the possibility of an infection, inflammation, spinal cord infarction or demyelinating process such as multiple
sclerosis and/or Lyme disease. Neoplasm much less likely however is included in the differential. No adjacent abnormal enhancement in the paraspinal soft tissues. Follow-up with contrast-enhanced brain and cervical spine MRI imaging is recommended
for complete evaluation. Small focal central disk herniation at T7-8 causing mild cord compression. No myelopathy at this level. 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 1 cm nodule in the right adrenal gland most consistent
with an adenoma.
-CSF 05/31/23: WBC 10, glucose 72, protein 123.
-MRI brain 06/01/23: Mild signal alteration in the bilateral cerebral white matter, right middle cerebellar peduncle, and upper cervical spinal cord. These findings would be considered most suspicious for demyelination given the clinical concern for
multiple sclerosis. Postcontrast enhancement of the lesion in the upper cervical spinal cord suggesting active demyelination.
Positive bands consistent with demyelinating disease, not specific as to MS versus NMO or MOGAD
Likely flare of new demyelinating disease, multiple sclerosis versus NMO (neuromyelitis optica) are felt most likely, MOGAD is also possible but more rare and less likely
Subjective/Objective
Subjective Data
Date of Service: June 05, 2023
No acute events, didn't sleep well, weird dreams, leg strength and walking feels about the same, no bowel or urinary incontinence or urinary retention
Objective Data
Vital Signs
Temp Pulse Resp BP Pulse Ox
97.9 F 84 20 138/75 97
06/04/23 23:43 06/05/23 00:38 06/04/23 23:43 06/05/23 00:38 06/04/23 23:43
Lab Results
06/04/23 06:03
06/04/23 06:04
PT 13.5 Sec (11.4-14.6) 05/31/23 09:03
INR 1.05 05/31/23 09:03
APTT 24.9 Sec (23.4-35.0) 05/31/23 09:03
Sodium 138 mmol/L (135-145) 06/04/23 06:04
Potassium 4.9 mmol/L (3.5-5.1) 06/04/23 06:04
BUN 26 mg/dl (9-20) H 06/04/23 06:04
Glucose 138 mg/dl (70-99) H 06/04/23 06:04
Calcium 9.2 mg/dl (8.4-10.2) 06/04/23 06:04
Whole Bld Vitamin B1 157 nmol/L (70-180) 05/31/23 09:03
Vitamin B12 387 pg/ml (239-931) 05/31/23 09:03
Patient Allergies
No Known Allergies Allergy (Unverified 05/18/23 16:12)
Review of Systems
-
History Source: Patient
All other systems: Reviewed and negative
Constitutional: No Symptoms
EENT: No Symptoms Reported
Respiratory: No Symptoms
Cardiac: No Symptoms
Abdomen/GI: No Symptoms
Genitourinary: No Symptoms
Musculoskeletal: No Symptoms
Skin: No Symptoms
Neuro: Weakness and Numbness
Endocrine: No Symptoms
Hematologic / Lymphatic: No Symptoms
Allergy / Immunology: No Symptoms
Physical Exam
-
General: Well Developed, Well Nourished, Comfortable and Obese
Eyes: No Ptosis
HEENT: Normocephalic
Neck: No Bruits Bilaterally
Respiratory: Clear to Auscultation
Cardiac: Regular Rhythm
GI: Normal Bowel Sounds
Skin: Unremarkable
Extremities: No Clubbing and No Cyanosis
Psych: Unremarkable
Extended Neurological Exam
Mood & Affect: Mood Unremarkable and Affect Unremarkable
Attention Span & Concentration: Awake, Alert and Interactive
Memory: Unremarkable
Tremor: Hand Tremor Absent
Involuntary Movement: None
Speech: Quality Unremarkable and Quantity Unremarkable; Negative Expressive Aphasia, Receptive Aphasia or Dysarthric
Cranial Nerve II: Left Eye: Pupillary Reactivity Unremarkable, Pupillary Size Unremarkable and Visual Rivers Intact
Cranial Nerve II: Right Eye: Pupillary Reactivity Unremarkable, Pupillary Size Unremarkable and Visual Rivers Intact
Cranial Nerves III, IV, : Extraocular Movement: Extraocular Movement Full in all Directions
Cranial Nerve VII: Facial Symmetry: Normal Facial Symmetry
Cranial Nerve VIII: Hearing: Unremarkable Hearing to Normal Conversational Volume
Muscle Strength, Overall: Other (5/5 shoulder abduction, 4/5 hip flexion and 4/5 ankle dorsiflexion)
Deep Tendon Reflexes: Other (Clonus on right ankle, left akins's positive, 3 + patella bilaterally)
Vibration Sensation: Other (Reduced right leg)
Gait & Station: Other (Abnormal gait, slow, unsteady, 1 person assistance or requires walker, right leg drags, wide based)
Data Reviewed
-
MRI Head: Report Reviewed and Image Reviewed
MRI Thoracic Spine: Report Reviewed and Image Reviewed
MRI Lumbar Spine: Report Reviewed and Image Reviewed
Labs: Report Reviewed
[2023-06-05] MEDS: NOVOLOG FLEXPEN-LOW RESISTANCE SC (08:00)
[2023-06-05] MEDS: TYLENOL 650 MG PO ×2 (08:08→23:04)
[2023-06-05] MEDS: NORVASC 5 MG PO (08:08)
[2023-06-05] MEDS: PROTONIX 40 MG PO (08:08)
[2023-06-05] MEDS: VITAMIN B-12 1000 MCG PO (08:08)
[2023-06-05] MEDS: VITAMIN D3 (cholecalciferol) 25 MCG PO (08:08)
[2023-06-05] MEDS: SOLU-MEDROL 258 MG IV (08:09)
[2023-06-05] MEDS: FLUSH (NSS) 2 FLUSH IV (08:09)
--- NOTE | 2023-06-05 11:46 | W.PN.HOSP.TC ---
Today's Communication/Plan
-
[facility] for catheter
Hematology consult
Plan to start plasmapheresis
Increase gabapentin
Melatonin as needed
Assessment / Plan
Assessment / Plan
IMPRESSION: 52-year-old with no significant medical history presents with dizziness and right lower extremity weakness. Possible etiologies include multiple sclerosis, transverse myelitis, stroke
#Dizziness
#Abrupt onset of right lower extremity weakness
Neuro input appreciated, continue to follow
MRI brain ordered- Mild signal alteration in the bilateral cerebral white matter, right middle cerebellar peduncle, and upper cervical spinal cord. These findings would be considered most suspicious for demyelination given the poor neuro input, most
likely a flare of demyelinating disease, could be multiple sclerosis,MOGAD, or NMO
Plan will be to continue Solu-Medrol 1 g till today and then start 50 mg prednisone on Tuesday
Discussed with neurology. Plan will be to start patient on plasmapheresis.
[facility] and hematology consulted
Continue Protonix for GI prophylaxis
Lumbar puncture, pending CSF analysis pending
lyme studies negative.
Oligoclonal bands positive in CSF study
PT/OT
Started on B12 supplementation. Continue with gabapentin started this admission. Increase to 400mg
Acute rehabilitation following hospitalization
Dizziness
Check orthostatics
# Hyperglycemia
Most likely increase is from steroid use.
A1c 4.7 06/01/2023
Start SSI, monitor glucose level
# Hypertension primary
Start Amlodipine for BP
Hydralazine as needed for greater than 150 systolic
Adrenal adenoma
Follow-up as outpatient
Monitor
Morbid obesity due to excess calories
DVT prophylaxis-Lovenox
Discussed with neurology
d/w with patient mother at bedside
Anticipated Discharge: > 48 hours
Subjective/Interval History
-
Date of Service: June 05, 2023
States he feels weaker compared to yesterday
some dizziness upon waking up
states did not sleep much overnight
Objective Data
-
Labs:
Laboratory Results
06/05/23 06/05/23
11:08 11:09
WBC Pending
Hgb Pending
Hct Pending
Plt Count Pending
PT Pending
INR Pending
APTT Pending
Sodium Pending
Potassium Pending
Chloride Pending
Carbon Dioxide Pending
BUN Pending
Creatinine Pending
Glucose Pending
Calcium Pending
Total Bilirubin Pending
AST Pending
ALT Pending
Alkaline Phosphatase Pending
Vital Signs:
Vital Signs
Temp Pulse Resp BP Pulse Ox
98.0 F 86 18 145/86 97
06/05/23 07:13 06/05/23 10:00 06/05/23 07:13 06/05/23 10:00 06/05/23 07:13
I&O
06/04/23 06/05/23 06/06/23
06:59 06:59 06:59
Intake Total 1380 / 1380 1158 / 1158
Balance 1380 / 1380 1158 / 1158
Physical Exam
-
General: Well Developed, Well Nourished, No Apparent Distress and Morbidly Obese
HEENT: Normocephalic
Respiratory: Clear to Auscultation; Negative Wheezes or Rales
Cardiac: Regular Rhythm and S1/S2
GI: Soft, Nontender, Nondistended and Normal Bowel Sounds
Musculoskeletal: No Clubbing and No Edema
Skin: Warm
Neuro: Awake, Alert, Oriented and AO x 3
Psych: Calm
[2023-06-05 11:49] LABS: Glucose - Point of Care 150 mg/dl (70-99)
--- NOTE | 2023-06-05 11:59 | CON.ONC ---
Impression
Impression
weakness, secondary to suspected demyelinating process - transverse myelitis, MS, NMO, etc; limited improvement on high dose steroids
Plan
Plan
For plasmapheresis as recommended by neurology, QOD x 5 treatment (ultimate duration TBD be neuro based on response)
Discussed treatment plan w/ patient and mother on the phone, agreeable to proceed
IR to place pheresis catheter today
I reached out to [facility] to initiate, they'll be out later today for first treatment
Paper orders on chart, faxed to pharmacy for albumin, calcium gluconate in NS, heparin flush
Procedure consent signed, on chart
Monitor labs daily, CBC, CMP, calcium, Mag, fibrinogen - ordered
Patient History
History of Present Illness
52 yo M without PMH presented to ER 05/31/23 with R>L LE weakness, falls, tingling in fingertips, dizziness. Imaging and neurology work-up suggestive of demyelinating process such as transverse myelitis, MS or NMO. He's been treated with high dose
steroids without significant improvement, thus plasmapheresis has been recommended to further treatment.
Past-Medical/Surgical History
Past History
Past Medical History: None
Past Surgical History: None
Social History
Tobacco: Non-smoker
Alcohol: None
Drug: None
Personal: Single
Living: with family
Employment: Employed
Patient Medication
�Medication �Instructions �Recorded �Confirmed �Last Taken �Type
cholecalciferol (vitamin D3) 25 25 mcg PO DAILY Supplement 05/31/23 05/31/23 05/31/23 History
mcg (1,000 unit) chewable tablet
(Vitamin D3)
multivitamin with minerals-folic 1 tab PO DAILY Supplement 05/31/23 05/31/23 05/31/23 History
acid 80 mcg chewable tablet
Active Medications
Generic Name Dose Route Start Last Admin
Trade Name Freq PRN Reason Stop Dose Admin
Acetaminophen 650 mg 06/02/23 13:04 06/05/23 08:08
Acetaminophen 325 Mg Tablet PO 06/30/23 13:03 650 mg
Q6HPRN PRN Administration
mild pain/ fever>100.5F
Amlodipine Besylate 5 mg 06/03/23 14:00 06/05/23 08:08
Amlodipine 5 Mg Tablet PO 07/01/23 13:59 5 mg
DAILY YOHANA Administration
Cholecalciferol 25 mcg 06/01/23 08:00 06/05/23 08:08
Cholecalciferol (Vitamin D3) 25 Mcg Tablet (1,000 Units) PO 06/29/23 07:59 25 mcg
DAILY YOHANA Administration
Cyanocobalamin 1,000 mcg 06/01/23 10:00 06/05/23 08:08
Cyanocobalamin 1,000 Mcg Tablet PO 06/29/23 09:59 1,000 mcg
DAILY YOHANA Administration
Dextrose 12.5 grams 06/01/23 22:00
Dextrose 50% (0.5 Grams/Ml) 50 Ml Syringe IV 06/29/23 21:59
[id number] PRN
hypoglycemia
Protocol
Enoxaparin Sodium 40 mg 05/31/23 18:00 06/04/23 18:29
Enoxaparin Sodium 40 Mg/0.4 Ml Syringe SC 06/28/23 17:59 40 mg
QPM YOHANA Administration
Gabapentin 400 mg 06/05/23 22:00
Gabapentin 400 Mg Capsule PO 07/03/23 21:59
HS YOHANA
Glucagon 1 mg 06/01/23 22:00
Glucagon 1 Mg Vial IM 06/29/23 21:59
PRN PRN
hypoglycemia - no IV access
Protocol
Hydralazine HCl 10 mg 06/04/23 11:42 06/04/23 20:37
Hydralazine 20 Mg/Ml Vial IV 06/30/23 09:49 10 mg
Q4HPRN PRN Administration
SBP>150
Insulin Aspart 0 units 06/02/23 07:30 06/05/23 08:00
Insulin Aspart Low Resistance 300 Units/3 Ml Pen.Injctr SC 06/30/23 07:29 Not Given
AC YOHANA
Protocol
Melatonin 3 mg 06/05/23 20:00
Melatonin 3 Mg Tablet PO 07/03/23 19:59
HSPRN PRN
insomnia
Pantoprazole Sodium 40 mg 06/01/23 10:00 06/05/23 08:08
Pantoprazole 40 Mg Delayed Release Tablet PO 06/29/23 09:59 40 mg
DAILY YOHANA Administration
Prednisone 50 mg 06/06/23 08:00
Prednisone 50 Mg Tablet PO 07/04/23 07:59
DAILY YOHANA
Sodium Chloride 0 flush 05/31/23 16:00 06/05/23 08:09
Sodium Chloride 0.9% (Flush) Syringe IV 06/28/23 15:59 2 flush
PER PROTOCOL YOHANA Administration
Review of Systems
-
All Other Systems: Not reviewed unless documented
Physical Exam
-
General: Well Developed, Well Nourished, No Apparent Distress and Comfortable
HEENT: Negative Jaundice
Cardiology: Normal Sinus Rhythm
Pulmonary: Clear
GI: Soft
Musculoskeletal: No Edema
Skin: Warm and Dry
Psych: Intact Judgement/Insight
Labs
Lab Results
WBC 4.6 10^3/uL (4.8-10.8) L 06/04/23 06:03
RBC 4.83 10^6/uL (4.70-6.10) 06/04/23 06:03
Hgb 14.7 g/dL (13.0-18.0) 06/04/23 06:03
Hct 40.0 % (39.0-52.0) 06/04/23 06:03
MCV 82.8 fL (80.0-94.0) 06/04/23 06:03
MCH 30.4 pg (27.0-31.0) 06/04/23 06:03
MCHC 36.8 g/dL (33.0-37.0) 06/04/23 06:03
RDW 13.3 % (11.5-14.5) 06/04/23 06:03
Plt Count 147 10^3/uL (130-400) 06/04/23 06:03
MPV 10.0 fL (7.4-10.4) 06/04/23 06:03
Abs Immat Gran (auto) 0.1 10^3/uL (0-0.05) H 06/02/23 05:09
Absolute Neuts (auto) 5.6 10^3/uL (1.4-6.5) 06/02/23 05:09
Absolute Lymphs (auto) 0.3 10^3/uL (1.2-3.4) L 06/02/23 05:09
Absolute Monos (auto) 0.1 10^3/uL (0.1-0.6) 06/02/23 05:09
Absolute Eos (auto) 0.0 10^3/uL (0-0.7) 06/02/23 05:09
Absolute Basos (auto) 0.0 10^3/uL (0-0.2) 06/02/23 05:09
Immature Gran % 1.9 % (0-0.5) H 06/02/23 05:09
Neutrophils % 90.3 % (42.2-75.2) H 06/02/23 05:09
Lymphocytes % 5.4 % (20.5-51.1) L 06/02/23 05:09
Monocytes % 2.2 % (1.7-9.3) 06/02/23 05:09
Eosinophils % 0.0 % (0-6) 06/02/23 05:09
Basophils % 0.2 % (0-2) 06/02/23 05:09
Creatinine 0.7 mg/dL (0.7-1.3) 06/04/23 06:04
Vital Signs
Vital Signs
Temp Pulse Resp BP Pulse Ox
98.0 F 86 18 145/86 97
06/05/23 07:13 06/05/23 10:00 06/05/23 07:13 06/05/23 10:00 06/05/23 07:13
[2023-06-05] MEDS: NOVOLOG FLEXPEN-LOW RESISTANCE 1 UNITS SC ×2 (12:33→17:54)
[2023-06-05 12:38] LABS: % Basophils 0.5 % (0-2); % Lymphocytes 1.9 % (20.5-51.1); % Monocytes 4.1 % (1.7-9.3); % Neutrophils 89.5 % (42.2-75.2); Absolute Immature Granulocytes 0.3 10^3/uL (0-0.05); Absolute Lymphocytes 0.2 10^3/uL (1.2-3.4); Absolute Monocytes 0.4 10^3/uL (0.1-0.6); Absolute Neutrophils 7.7 10^3/uL (1.4-6.5); Hematocrit 48.8 % (39.0-52.0); Hemoglobin 17.5 g/dL (13.0-18.0); Mean Corp Hgb Conc. 35.9 g/dL (33.0-37.0); Mean Corpuscular Hgb 30.1 pg (27.0-31.0); Mean Platelet Volume 9.6 fL (7.4-10.4); Nucleated Red Blood Cells % 0.2 % (-); Platelet Count 205 10^3/uL (130-400); Red Blood Cell Count 5.81 10^6/uL (4.70-6.10); Red Cell Dist. Width 13.4 % (11.5-14.5); White Blood Cell Count 8.6 10^3/uL (4.8-10.8)
[2023-06-05 12:48] LABS: ALT (SGPT) 157 U/L (0-50); AST (SGOT) 59 U/L (17-59); Alkaline Phosphatase 62 U/L (38-126); Blood Urea Nitrogen 32 mg/dl (9-20); Calcium 9.7 mg/dl (8.4-10.2); Carbon Dioxide 23 mmol/L (22-30); Chloride 101 mmol/L (98-107); Estimated Creatinine Clearance > 125 ml/min; Glucose 145 mg/dl (70-99); INR 1.15; Magnesium 2.7 mg/dl (1.6-2.3); PT 14.5 Sec (11.4-14.6); Potassium 4.5 mmol/L (3.5-5.1); Sodium 136 mmol/L (135-145); Total Bilirubin 2.3 mg/dl (0.2-1.3); eGFR > 60.00
[2023-06-05 12:54] LABS: Fibrinogen 129 MG/DL (199-459)
--- NOTE | 2023-06-05 13:02 | PTCARENOTE ---
Pt transported to IR via stretcher at this time.
[2023-06-05 13:08] LABS: APTT 21.9 Sec (23.4-35.0)
[2023-06-05] MEDS: APRESOLINE 10 MG IV ×2 (14:52→23:05)
--- NOTE | 2023-06-05 15:03 | PTCARENOTE ---
Pt back from IR post catheter placement for plasmapheresis. Vital signs obtained. Temp 98.3, HR 86, BP 165/96, RR 16, SPO2 98% on RA. Pt tolerated procedure without difficulty. Updated Sheryl LALWER from [facility] that pt is back from IR with catheter
access for plasmapheresis. Meds ready for him.
[2023-06-05 16:41] LABS: Glucose - Point of Care 159 mg/dl (70-99)
[2023-06-05] MEDS: CALCIUM GLUCONATE 10% INJECTION 292 MG IV (16:53)
--- NOTE | 2023-06-05 16:54 | PTCARENOTE ---
Addendum entered by Ana Maria Hall 06/05/23 20:17:
Have been monitoring pt's BP closely, updated Dr. Cox of BPs and questioning if he wanted further antihypertensives administered at the start of plasmapheresis. At 1745, BP 193/111, HR 96. Pt stating that he does have a slight headache. Made
Brooke aware of BP. See new order for Labetalol 10mg IV x 1. Updated pt on plan, see MAR at 181, will monitor.
Original Note:
Todd Mission RN (Sheryl Toro), started pt's plasmapheresis at this time. Vital signs noted: T 98.0, HR 96, BP 163/103, RR 16, SpO2 99% on RA.
[2023-06-05] MEDS: LOVENOX 40 MG SC (17:55)
[2023-06-05] MEDS: TRANDATE 10 MG IV (18:15)
[2023-06-05] MEDS: ALBUMIN 5% 250 INTRACATH ×17 (18:26→18:44)
[2023-06-05 21:44] LABS: Glucose - Point of Care 241 mg/dl (70-99)
[2023-06-05] MEDS: NEURONTIN 400 MG PO (23:01)
[2023-06-05] MEDS: MELATONIN 3 MG PO (23:04)
[2023-06-06] VITALS (13 sets, daily range): BP systolic 126–168; BP diastolic 69–92; PULSE 86–107; O2SAT 98
[2023-06-06 07:36] LABS: Glucose - Point of Care 158 mg/dl (70-99)
[2023-06-06 07:53] LABS: % Basophils 0.2 % (0-2); % Immature Granulocytes 2.3 % (0-0.5); % Lymphocytes 2.7 % (20.5-51.1); % Monocytes 2.7 % (1.7-9.3); % Neutrophils 92.1 % (42.2-75.2); Absolute Immature Granulocytes 0.1 10^3/uL (0-0.05); Absolute Lymphocytes 0.1 10^3/uL (1.2-3.4); Absolute Monocytes 0.1 10^3/uL (0.1-0.6); Absolute Neutrophils 4.7 10^3/uL (1.4-6.5); Hematocrit 42.3 % (39.0-52.0); Hemoglobin 15.3 g/dL (13.0-18.0); Mean Corp Hgb Conc. 36.2 g/dL (33.0-37.0); Mean Corpuscular Hgb 30.6 pg (27.0-31.0); Mean Corpuscular Volume 84.6 fL (80.0-94.0); Mean Platelet Volume 9.8 fL (7.4-10.4); Nucleated Red Blood Cells % 0 % (-); Platelet Count 124 10^3/uL (130-400); Red Cell Dist. Width 13.5 % (11.5-14.5); White Blood Cell Count 5.2 10^3/uL (4.8-10.8)
[2023-06-06 08:26] LABS: ALT (SGPT) 56 U/L (0-50); AST (SGOT) 30 U/L (17-59); Albumin 3.3 g/dl (3.5-5.0); Alkaline Phosphatase 33 U/L (38-126); Blood Urea Nitrogen 26 mg/dl (9-20); Calcium 8.9 mg/dl (8.4-10.2); Carbon Dioxide 26 mmol/L (22-30); Chloride 100 mmol/L (98-107); Estimated Creatinine Clearance > 125 ml/min; Glucose 165 mg/dl (70-99); Magnesium 2.6 mg/dl (1.6-2.3); Potassium 4.2 mmol/L (3.5-5.1); Sodium 136 mmol/L (135-145); Total Bilirubin 1.3 mg/dl (0.2-1.3); Total Protein 4.5 g/dl (6.3-8.2); eGFR > 60.00
[2023-06-06 08:29] LABS: Fibrinogen < 60 MG/DL (199-459)
[2023-06-06] MEDS: VITAMIN D3 (cholecalciferol) 25 MCG PO (08:38)
[2023-06-06] MEDS: DELTASONE 50 MG PO (08:38)
[2023-06-06] MEDS: NOVOLOG FLEXPEN-LOW RESISTANCE 1 UNITS SC (08:38)
[2023-06-06] MEDS: PROTONIX 40 MG PO (08:38)
[2023-06-06] MEDS: VITAMIN B-12 1000 MCG PO (08:38)
[2023-06-06] MEDS: NORVASC 5 MG PO (08:38)
--- NOTE | 2023-06-06 09:46 | CM ---
Pheresis cath placed . Pt to begin plasmapheresis treatment.
PT and OT indicated acute rehab at dc.
Will need to complete plasmapheresis before dc then needs auth.
Physiatry Dr Dickson evaluated pt and recommended acute Care
Spoke with [facility] who can accept him after auth with his insurance.
Spoke with patient he is in agreement with [facility] if accepted.
[facility] if after auth
--- NOTE | 2023-06-06 10:23 | W.PN.NEURO.1 ---
Documented by User: Izzy Meredith NP 06/06/23 11:17
Today's Communication / Plan
-
.
Neuro Assessment/Plan
Assessment
This is a 52-year-old male who presented to on 05/31/23 with report of abrupt onset RLE weakness and three falls at home starting on 05/28/23. Earlier this month starting on 05/06/23, patient experienced flu-like symptoms and dizziness and completed
Cedfdinir and steroids for treatment of otitis media and sinusitis.
-CT head 05/18/23: No acute intracranial abnormality. Paranasal sinus mucosal disease/sinusitis.
-Lumbar Spine MRI 05/31/23: Minimal degenerative disk and joint disease in the lumbar spine. No mass, fluid collection or abnormal enhancement on postcontrast imaging. Mild central canal stenosis at L4-5.
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 Differential includes the possibility of an infection, inflammation, spinal cord infarction or demyelinating process such as multiple
sclerosis and/or Lyme disease. Neoplasm much less likely however is included in the differential. No adjacent abnormal enhancement in the paraspinal soft tissues. Follow-up with contrast-enhanced brain and cervical spine MRI imaging is recommended
for complete evaluation. Small focal central disk herniation at T7-8 causing mild cord compression. No myelopathy at this level. 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 1 cm nodule in the right adrenal gland most consistent
with an adenoma.
-CSF 05/31/23: WBC 10, glucose 72, protein 123.
-MRI brain 06/01/23: Mild signal alteration in the bilateral cerebral white matter, right middle cerebellar peduncle, and upper cervical spinal cord. These findings would be considered most suspicious for demyelination given the clinical concern for
multiple sclerosis. Postcontrast enhancement of the lesion in the upper cervical spinal cord suggesting active demyelination.
I. Positive bands consistent with demyelinating disease, not specific as to MS versus NMO or MOGAD
II. Likely flare of new demyelinating disease, multiple sclerosis versus NMO (neuromyelitis optica) are felt most likely, MOGAD is also possible but more rare and less likely
Plan
-PLEX initiated, received 1/5 doses so far.
-Completed 5 days of IV methylpredisone.
-Continue gabapentin 300mg HS for sleep.
-Rare lab tests still pending.
-Bladder scan/straight cath protocol
-PT/OT evaluations
-DVT prophylaxis
-Cyanocobalamin replacement for B12 level <400.
-Continue vitamin D3 replacement.
-Patient will need to follow-up with Neurology as an outpatient in about 4 weeks, may see the [employer] or one of the physicians. Also provided patient with contact info for [facility] to see an MS specialists as an outpatient, has an appointment
scheduled this month.
Subjective/Objective
Subjective Data
Date of Service: June 06, 2023
No acute events overnight. Patient feels that his RLE strength is mildly improved today. Gait is still abnormal, but he is ambulating short distances without a walker. He reports a mild headache and tingling in bilateral fingers. He denies any
dizziness, vision changes, speech/swallow difficulty, nausea, chest pain, palpitations, and shortness of breath.
Objective Data
Vital Signs
Temp Pulse Resp BP Pulse Ox
97.8 F 62 16 140/78 97
06/06/23 07:30 06/06/23 07:30 06/06/23 07:30 06/06/23 07:30 06/06/23 07:30
Lab Results
06/06/23 06:44
06/06/23 06:44
PT 14.5 Sec (11.4-14.6) 06/05/23 12:12
INR 1.15 06/05/23 12:12
APTT 21.9 Sec (23.4-35.0) L 06/05/23 12:12
Sodium 136 mmol/L (135-145) 06/06/23 06:44
Potassium 4.2 mmol/L (3.5-5.1) 06/06/23 06:44
BUN 26 mg/dl (9-20) H 06/06/23 06:44
Glucose 165 mg/dl (70-99) H 06/06/23 06:44
Calcium 8.9 mg/dl (8.4-10.2) 06/06/23 06:44
Whole Bld Vitamin B1 157 nmol/L (70-180) 05/31/23 09:03
Vitamin B12 387 pg/ml (239-931) 05/31/23 09:03
Patient Allergies
No Known Allergies Allergy (Unverified 05/18/23 16:12)
Review of Systems
-
History Source: Patient
EENT: Negative Blurry Vision, Decreased Vision or Swallowing Difficulty
Respiratory: Negative Cough or Trouble Breathing
Cardiac: Negative Chest Pain or Palpitations
Abdomen/GI: Negative Nausea or Constipated
Genitourinary: Negative Difficulty Voiding
Neuro: Headache, Weakness (RLE), Numbness (b/l fingers) and Ataxia; Negative Dizzy, Tremors or Speech Problem
Physical Exam
-
General: Well Developed, Well Nourished and No Apparent Distress
Eyes: No Ptosis and PERRLA
HEENT: Normocephalic and Atraumatic
Neck: Full Range of Motion
Respiratory: No Dyspnea
GI: Non-distended
Extremities: No Clubbing, No Cyanosis and No Edema
Psych: Unremarkable
Extended Neurological Exam
Mood & Affect: Mood Unremarkable and Affect Unremarkable
Attention Span & Concentration: Awake, Alert, Interactive and No Difficulty with 2 Step Request
Memory: Unremarkable and Able to Recall
Tremor: Hand Tremor Absent and Head Tremor Absent
Involuntary Movement: None
Speech: Quality Unremarkable, Quantity Unremarkable and Rate of Production Unremarkable
Cranial Nerve II: Left Eye: Pupillary Reactivity Unremarkable, Pupillary Size Unremarkable and Visual Rivers Intact
Cranial Nerve II: Right Eye: Pupillary Reactivity Unremarkable, Pupillary Size Unremarkable and Visual Rivers Intact
Cranial Nerves III, IV, : Extraocular Movement: Extraocular Movement Full in all Directions
Cranial Nerve V: Facial Sensation: Intact to Light Touch
Cranial Nerve VII: Facial Symmetry: Normal Facial Symmetry
Cranial Nerve VIII: Hearing: Unremarkable Hearing to Normal Conversational Volume
Cranial Nerves IX, X: Palate Movement: Palate Elevation Symmetric
Cranial Nerve XI: Shoulder Shrug: Unremarkable
Cranial Nerve XII: Tongue Protusion: Midline
Muscle Strength, Overall: Reduced (RLE hip ext/flex 4/5, R plantar/dorsi 4/5. LLE hip flex/ext 5-/5)
Muscle Bulk & Tone: Bulk Unremarkable and Tone Unremarkable
Pronator Drift: No Drift in Upper Extremities and Drift in Right Lower Extremity
Cold Sensation: Unremarkable
Touch Sensation: Unremarkable
Coordination: [id number] Testing Unremarkable
Data Reviewed
-
CT Head: Report Reviewed and Image Reviewed
MRI Head: Report Reviewed and Image Reviewed
MRI Thoracic Spine: Report Reviewed and Image Reviewed
MRI Lumbar Spine: Report Reviewed and Image Reviewed
Medical Test Reports: Report Reviewed (CSF)
Labs: Report Reviewed
Reviewed with: Physician, Patient and Family
Medications
-
Active Medications
Generic Name Dose Route Start Last Admin
Trade Name Freq PRN Reason Stop Dose Admin
Acetaminophen 650 mg 06/02/23 13:04 06/05/23 23:04
Acetaminophen 325 Mg Tablet PO 06/30/23 13:03 650 mg
Q6HPRN PRN Administration
mild pain/ fever>100.5F
Amlodipine Besylate 5 mg 06/03/23 14:00 06/06/23 08:38
Amlodipine 5 Mg Tablet PO 07/01/23 13:59 5 mg
DAILY YOHANA Administration
Cholecalciferol 25 mcg 06/01/23 08:00 06/06/23 08:38
Cholecalciferol (Vitamin D3) 25 Mcg Tablet (1,000 Units) PO 06/29/23 07:59 25 mcg
DAILY YOHANA Administration
Cyanocobalamin 1,000 mcg 06/01/23 10:00 06/06/23 08:38
Cyanocobalamin 1,000 Mcg Tablet PO 06/29/23 09:59 1,000 mcg
DAILY YOHANA Administration
Dextrose 12.5 grams 06/01/23 22:00
Dextrose 50% (0.5 Grams/Ml) 50 Ml Syringe IV 06/29/23 21:59
[id number] PRN
hypoglycemia
Protocol
Enoxaparin Sodium 40 mg 05/31/23 18:00 06/05/23 17:55
Enoxaparin Sodium 40 Mg/0.4 Ml Syringe SC 06/28/23 17:59 40 mg
QPM YOHANA Administration
Gabapentin 400 mg 06/05/23 22:00 06/05/23 23:01
Gabapentin 400 Mg Capsule PO 07/03/23 21:59 400 mg
HS YOHANA Administration
Glucagon 1 mg 06/01/23 22:00
Glucagon 1 Mg Vial IM 06/29/23 21:59
PRN PRN
hypoglycemia - no IV access
Protocol
Hydralazine HCl 10 mg 06/04/23 11:42 06/05/23 23:05
Hydralazine 20 Mg/Ml Vial IV 06/30/23 09:49 10 mg
Q4HPRN PRN Administration
SBP>150
Insulin Aspart 0 units 06/02/23 07:30 06/06/23 08:38
Insulin Aspart Low Resistance 300 Units/3 Ml Pen.Injctr SC 06/30/23 07:29 1 units
AC YOHANA Administration
Protocol
Melatonin 3 mg 06/05/23 20:00 06/05/23 23:04
Melatonin 3 Mg Tablet PO 07/03/23 19:59 3 mg
HSPRN PRN Administration
insomnia
Pantoprazole Sodium 40 mg 06/01/23 10:00 06/06/23 08:38
Pantoprazole 40 Mg Delayed Release Tablet PO 06/29/23 09:59 40 mg
DAILY YOHANA Administration
Prednisone 50 mg 06/06/23 08:00 06/06/23 08:38
Prednisone 50 Mg Tablet PO 06/12/23 08:01 50 mg
DAILY YOHANA Administration
Sodium Chloride 0 flush 05/31/23 16:00 06/05/23 08:09
Sodium Chloride 0.9% (Flush) Syringe IV 06/28/23 15:59 2 flush
PER PROTOCOL YOHANA Administration
Home Medications
�Medication �Instructions �Recorded
cholecalciferol (vitamin D3) 25 25 mcg PO DAILY Supplement 05/31/23
mcg (1,000 unit) chewable tablet
(Vitamin D3)
multivitamin with minerals-folic 1 tab PO DAILY Supplement 05/31/23
acid 80 mcg chewable tablet

Documented by User: Joel Tovar MD 06/06/23 15:41
Past History
Past History
ED Past Medical History: Other (Multiple sclerosis May 2023)
ED Past Surgical History: None
Social History
Tobacco: Non-smoker
Alcohol: None
Drug: None
Personal: Single
Living: with family
Employment: Employed
Family History
Family History: Other (Reviewed and noncontributory)
Medications
-
Medications:
Generic Name Dose Route Start Last Admin
Trade Name Freq PRN Reason Stop Dose Admin
Acetaminophen 650 mg 06/02/23 13:04 06/06/23 10:54
Acetaminophen 325 Mg Tablet PO 06/30/23 13:03 650 mg
Q6HPRN PRN Administration
mild pain/ fever>100.5F
Amlodipine Besylate 5 mg 06/03/23 14:00 06/06/23 08:38
Amlodipine 5 Mg Tablet PO 07/01/23 13:59 5 mg
DAILY YOHANA Administration
Cholecalciferol 25 mcg 06/01/23 08:00 06/06/23 08:38
Cholecalciferol (Vitamin D3) 25 Mcg Tablet (1,000 Units) PO 06/29/23 07:59 25 mcg
DAILY YOHANA Administration
Cyanocobalamin 1,000 mcg 06/01/23 10:00 06/06/23 08:38
Cyanocobalamin 1,000 Mcg Tablet PO 06/29/23 09:59 1,000 mcg
DAILY YOHANA Administration
Dextrose 12.5 grams 06/01/23 22:00
Dextrose 50% (0.5 Grams/Ml) 50 Ml Syringe IV 06/29/23 21:59
[id number] PRN
hypoglycemia
Protocol
Enoxaparin Sodium 40 mg 05/31/23 18:00 06/05/23 17:55
Enoxaparin Sodium 40 Mg/0.4 Ml Syringe SC 06/28/23 17:59 40 mg
QPM YOHANA Administration
Gabapentin 400 mg 06/05/23 22:00 06/05/23 23:01
Gabapentin 400 Mg Capsule PO 07/03/23 21:59 400 mg
HS YOHANA Administration
Glucagon 1 mg 06/01/23 22:00
Glucagon 1 Mg Vial IM 06/29/23 21:59
PRN PRN
hypoglycemia - no IV access
Protocol
Hydralazine HCl 10 mg 06/04/23 11:42 06/06/23 13:11
Hydralazine 20 Mg/Ml Vial IV 06/30/23 09:49 10 mg
Q4HPRN PRN Administration
SBP>150
Insulin Aspart 0 units 06/02/23 07:30 06/06/23 12:25
Insulin Aspart Low Resistance 300 Units/3 Ml Pen.Injctr SC 06/30/23 07:29 Not Given
AC YOHANA
Protocol
Melatonin 3 mg 06/05/23 20:00 06/05/23 23:04
Melatonin 3 Mg Tablet PO 07/03/23 19:59 3 mg
HSPRN PRN Administration
insomnia
Pantoprazole Sodium 40 mg 06/01/23 10:00 06/06/23 08:38
Pantoprazole 40 Mg Delayed Release Tablet PO 06/29/23 09:59 40 mg
DAILY YOHANA Administration
Prednisone 50 mg 06/06/23 08:00 06/06/23 08:38
Prednisone 50 Mg Tablet PO 06/12/23 08:01 50 mg
DAILY YOHANA Administration
Sodium Chloride 0 flush 05/31/23 16:00 06/05/23 08:09
Sodium Chloride 0.9% (Flush) Syringe IV 06/28/23 15:59 2 flush
PER PROTOCOL YOHANA Administration
[2023-06-06] MEDS: TYLENOL 650 MG PO (10:54)
--- NOTE | 2023-06-06 10:54 | W.PN.HOSP.TC ---
Addendum entered and electronically signed by Erasmo Deleon MD 06/06/23 15:42:
Attending Addendum-
I saw and evaluated the patient. I reviewed the resident�s note and agree with findings and plan as documented in the resident�s note. feels mild improvement over weekend. completed IV steroids. felt fatigued after PLEX x 1. complains of b/l hands
pinn and needles sensation. Full 12 point ROS reviewed and negative except as documented Exam: GEN NAD heart RRR lungs clear and soft LE trace b/l edema Neuro AAO x 3 MS 4+/5 RLE 5/5 LUE LLE RUE sensation intact, PEERLA, neck supple Plan:
# RLE Weakness- improving- oligo bands pos-MS vs NMO vs less likely MOGAD- multiple labs pending-completed IV steroids day 07/09. follow labs in am, PT OT, PLEX QOD catheter placed, treatment / started on 06/04. Heme onc on board. monitor labs
closely. acute rehab post PLEX. for PO steroid taper over 10 days
# Hyperkalemia- resolved- repeat BMP in am
# Hyperglycemia- likely steroid induced, cont SSI, Hba1c 4.7 cont to monitor while on steroids
# 1 cm Adrenal Adenoma- f/u as OP, will d/w patient and family
# Hyponatremia- resolved, repeat BMP in am
# DVT proph- lovenox
# GI proph- cont PPI
Time spent coordinating care, review of plan of care with resident, review of records, med rec, consults, notes, labs, rads, d/w nursing, family - 52 mins
Original Note:
Today's Communication/Plan
-
see a/p
Plasmapheresis day 1 yesterday. Continue with plan
Continue oral prednisone
Monitor CBC
Assessment / Plan
Assessment / Plan
IMPRESSION: 52-year-old with no significant medical history presents with dizziness and right lower extremity weakness. Possible etiologies include multiple sclerosis, transverse myelitis, stroke
#Dizziness
#Abrupt onset of right lower extremity weakness
Neuro input appreciated, continue to follow
MRI brain ordered- Mild signal alteration in the bilateral cerebral white matter, right middle cerebellar peduncle, and upper cervical spinal cord. These findings would be considered most suspicious for demyelination given the poor neuro input, most
likely a flare of demyelinating disease, could be multiple sclerosis,MOGAD, or NMO
Completed Solu-Medrol 1g, started on 50 mg prednisone today
Discussed with neurology. Started on plasmapheresis yesterday. Day 1 done yesterday.
[facility] has placed pheresis catheter.
Oncology on board. Input appreciated. Monitor daily labs, CBC, CMP, calcium, mag, fibrinogen
Continue Protonix for GI prophylaxis
Lumbar puncture, pending CSF analysis pending
lyme studies negative.
Oligoclonal bands positive in CSF study
PT/OT
Started on B12 supplementation. Continue with gabapentin started this admission. Increase to 400mg
Acute rehabilitation following hospitalization
Dizziness
Check orthostatics
# Hyperglycemia
Most likely increase is from steroid use.
A1c 4.7 06/01/2023
On SSI, monitor glucose level
# Hypertension primary
Start Amlodipine for BP
Hydralazine as needed for greater than 150 systolic
Adrenal adenoma
Follow-up as outpatient
Monitor
DVT prophylaxis-Lovenox
Anticipated Discharge: > 48 hours
Subjective/Interval History
-
No acute events overnight. Reports leg strength and weakness still the same. He denies any bowel or urinary incontinence or urinary retention.
Objective Data
-
Labs:
Laboratory Results
06/06/23
06:44
WBC 5.2
Hgb 15.3
Hct 42.3
Plt Count 124 L D
Sodium 136
Potassium 4.2
Chloride 100
Carbon Dioxide 26
BUN 26 H
Creatinine 0.7
Glucose 165 H
Calcium 8.9
Total Bilirubin 1.3 D
AST 30
ALT 56 H
Alkaline Phosphatase 33 L
Vital Signs:
Vital Signs
Temp Pulse Resp BP Pulse Ox
97.8 F 62 16 140/78 97
06/06/23 07:30 06/06/23 07:30 06/06/23 07:30 06/06/23 07:30 06/06/23 07:30
I&O
06/05/23 06/06/23 06/07/23
06:59 06:59 06:59
Intake Total 1158 / 1158 1442 / 1442
Balance 1158 / 1158 1442 / 1442
Review of Systems
-
All other systems: Reviewed and negative (Except as documented)
Physical Exam
-
General: Well Developed and Well Nourished
HEENT: Normocephalic
Respiratory: Clear to Auscultation; Negative Wheezes or Rales
Cardiac: Regular Rhythm and S1/S2
GI: Soft, Nontender and Nondistended
Musculoskeletal: No Clubbing, No Cyanosis, No Edema and Other (4/5 muscle strength right lower extremity.)
Skin: Warm
Neuro: Awake, Alert, Oriented and AO x 3
Psych: Calm
Data Reviewed
-
Labs: Labs Reviewed by me and Discussed with Physician
[2023-06-06 12:25] LABS: Glucose - Point of Care 136 mg/dl (70-99)
[2023-06-06] MEDS: NOVOLOG FLEXPEN-LOW RESISTANCE SC (12:25)
[2023-06-06] MEDS: APRESOLINE 10 MG IV ×2 (13:11→19:21)
--- NOTE | 2023-06-06 15:29 | EEG.RPT ---
Electroencephalogram Report
Recording
Date of EE06/06/23
Type of EEG: Routine
Report
LESS THAN 1 HOUR REPORT
LESS THAN 1 HOUR EEG INTERPRETATION:
Mildly abnormal EEG for age mild diffuse bihemispheric slowing
CLINICAL CORRELATION:
This study was suggestive of mild diffuse cortical dysfunction without focal abnormality. No seizures were recorded. If concerns remain regarding seizures, consideration for prolonged EEG recording may be given.
Clinical correlation is advised.
METHODS:
A 21 channel digitized electroencephalogram (EEG) was performed in the Clinical Neurophysiology Laboratory. The 10/20 international system of electrode placement was used with ECG and lateral/vertical eye movements recorded. The [employer] quantitative
measurement system was utilized.
QUALITY OF STUDY:
Good
ELECTROENCEPHALOGRAPHER IMPRESSION(S):
Background
Medium amplitude fairly organized anterior-posterior voltage gradient of theta maximal activity
There were no significant asymmetries of background activity noted.
Sleep
Drowsiness present
Photic Stimulation
Failed to activate the record
Hyperventilation
Failed to activate the record
ECG
Normal sinus rhythm
[2023-06-06 16:17] LABS: Lyme Antibody Screen, EIA Negative (Negative)
[2023-06-06] MEDS: LOVENOX SC (16:29)
[2023-06-06 17:23] LABS: Glucose - Point of Care 209 mg/dl (70-99)
[2023-06-06] MEDS: NOVOLOG FLEXPEN-LOW RESISTANCE 2 UNITS SC (17:23)
--- NOTE | 2023-06-06 19:26 | PTCARENOTE ---
2 unit of FFP infused, no apparent signs of a transfusion reaction, VSS, plan of care ongoing.
--- NOTE | 2023-06-06 20:11 | PTCARENOTE ---
Pt transferred to [facility] [id number] in wheelchair with all belongings accompanied by friends, Report given to oncoming RN.
[2023-06-06] MEDS: MELATONIN 3 MG PO (21:58)
[2023-06-06] MEDS: NEURONTIN 400 MG PO (21:58)
[2023-06-06 22:06] LABS: Glucose - Point of Care 188 mg/dl (70-99)
[2023-06-07 06:43] LABS: % Basophils 0.2 % (0-2); % Eosinophils 0.5 % (0-6); % Immature Granulocytes 4.5 % (0-0.5); % Lymphocytes 4.3 % (20.5-51.1); % Monocytes 6.2 % (1.7-9.3); % Neutrophils 84.3 % (42.2-75.2); Absolute Immature Granulocytes 0.2 10^3/uL (0-0.05); Absolute Lymphocytes 0.2 10^3/uL (1.2-3.4); Absolute Monocytes 0.3 10^3/uL (0.1-0.6); Absolute Neutrophils 3.5 10^3/uL (1.4-6.5); Hematocrit 39.1 % (39.0-52.0); Hemoglobin 14.2 g/dL (13.0-18.0); Mean Corp Hgb Conc. 36.3 g/dL (33.0-37.0); Mean Corpuscular Hgb 30.5 pg (27.0-31.0); Mean Corpuscular Volume 84.1 fL (80.0-94.0); Nucleated Red Blood Cells % 0 % (-); Red Blood Cell Count 4.65 10^6/uL (4.70-6.10); Red Cell Dist. Width 13.7 % (11.5-14.5); White Blood Cell Count 4.2 10^3/uL (4.8-10.8)
[2023-06-07 07:09] LABS: Fibrinogen 92 MG/DL (199-459)
[2023-06-07 07:12] LABS: Glucose - Point of Care 131 mg/dl (70-99)
[2023-06-07 07:20] LABS: ALT (SGPT) 95 U/L (0-50); AST (SGOT) 44 U/L (17-59); Alkaline Phosphatase 50 U/L (38-126); Blood Urea Nitrogen 29 mg/dl (9-20); Calcium 8.6 mg/dl (8.4-10.2); Carbon Dioxide 27 mmol/L (22-30); Chloride 103 mmol/L (98-107); Estimated Creatinine Clearance > 125 ml/min; Glucose 132 mg/dl (70-99); Magnesium 2.7 mg/dl (1.6-2.3); Potassium 4.7 mmol/L (3.5-5.1); Sodium 135 mmol/L (135-145); Total Bilirubin 1.4 mg/dl (0.2-1.3); Total Protein 4.4 g/dl (6.3-8.2); eGFR > 60.00
[2023-06-07 07:30] VITALS: BP 128/83; BP 129/83; BP 146/92; PULSE 68; PULSE 72; PULSE 85
[2023-06-07 07:42] LABS: Platelet Count 80 10^3/uL (130-400)
[2023-06-07 07:46] LABS: Mean Platelet Volume 9.8 fL (7.4-10.4)
[2023-06-07] MEDS: NOVOLOG FLEXPEN-LOW RESISTANCE SC ×2 (08:14→12:43)
--- NOTE | 2023-06-07 09:25 | W.PN.HOSP.TC ---
Addendum entered and electronically signed by Ravi Jaime MD 06/07/23 14:29:
Patient seen and examined
Discussed with resident.
Impression/plan:
52 years old male with no prior medical history who presents with dizziness as well as right lower extremity weakness
Extensive workup including CSF with positive oligoclonal bands, imaging consistent with demyelinating process.
Completed 5-day course of IV Solu-Medrol with no significant improvement of the right lower extremity weakness
Has been transitioned to oral steroids with prednisone with plan of taper over next 10 days
Initiated on plasmapheresis with plan for 5 sessions every other day. Monitor CBC/BMP closely. Replete fibrinogen and platelets.
B12 initiated by neurology
Continue gabapentin as per neurology.
Outpatient neurology follow-up with consideration of disease modifying treatment options.
Original Note:
Today's Communication/Plan
-
Continue plasmapheresis today
Monitor CBC
Continue oral steroids
Assessment / Plan
Assessment / Plan
IMPRESSION: 52-year-old with no significant medical history presents with dizziness and right lower extremity weakness. Possible etiologies include multiple sclerosis, transverse myelitis, stroke
#Abrupt onset of right lower extremity weakness
Neuro input appreciated, continue to follow
MRI brain ordered- Mild signal alteration in the bilateral cerebral white matter, right middle cerebellar peduncle, and upper cervical spinal cord. These findings would be considered most suspicious for demyelination given the poor neuro input, most
likely a flare of demyelinating disease, could be multiple sclerosis,MOGAD, or NMO
Completed Solu-Medrol 1g, started on 50 mg prednisone for total of 7 days (04/13)
Discussed with neurology. Started on plasmapheresis 06/04. (03/11)
Oncology on board. Input appreciated. Monitor daily labs, CBC, CMP, calcium, mag, fibrinogen
Continue Protonix for GI prophylaxis
Lumbar puncture, pending CSF analysis pending
lyme studies negative.
Oligoclonal bands positive in CSF study
PT/OT
Started on B12 supplementation. Continue with gabapentin started this admission. Increase to 400mg
Acute rehabilitation following hospitalization
# Hyperglycemia
Most likely increase is from steroid use.
A1c 4.7 06/01/2023
On SSI, monitor glucose level
# Hypertension primary
Start Amlodipine for BP
Hydralazine as needed for greater than 150 systolic
Adrenal adenoma
Follow-up as outpatient
Monitor
DVT prophylaxis-Lovenox
Anticipated Discharge: > 48 hours
Objective Data
-
Labs:
Laboratory Results
06/07/23
05:35
WBC 4.2 L
Hgb 14.2
Hct 39.1
Plt Count 80 L D
Sodium 135
Potassium 4.7
Chloride 103
Carbon Dioxide 27
BUN 29 H
Creatinine 0.8
Glucose 132 H
Calcium 8.6
Total Bilirubin 1.4 H
AST 44
ALT 95 H
Alkaline Phosphatase 50
Vital Signs:
Vital Signs
Temp Pulse Resp BP Pulse Ox
97.8 F 72 14 128/83 98
06/07/23 07:30 06/07/23 07:30 06/07/23 07:30 06/07/23 07:30 06/07/23 07:30
I&O
06/06/23 06/07/23 06/08/23
06:59 06:59 06:59
Intake Total 1442 / 1442 0 / 179
Balance 1442 / 1442 1789
Review of Systems
-
All other systems: Reviewed and negative (Except as documented)
Physical Exam
-
General: Well Developed, Well Nourished and No Apparent Distress
HEENT: Normocephalic
Respiratory: Clear to Auscultation; Negative Wheezes or Rales
Cardiac: Regular Rhythm and S1/S2
GI: Soft, Nontender and Nondistended
Musculoskeletal: No Clubbing and No Cyanosis
Skin: Warm
Neuro: Awake, Alert, Oriented and AO x 3
Psych: Calm
--- NOTE | 2023-06-07 09:30 | PTCARENOTE ---
Assumed care of patient at 0930 after receiving report from Vivienne Islas RN.
--- NOTE | 2023-06-07 09:57 | W.PN.NEURO.1 ---
Addendum entered and electronically signed by Joel Tovar MD 06/07/23 14:25:
Studies reviewed.
I have personally examined the patient. I reviewed and agree with the [employer] CLERK's Note.
My addenda:
Awake, alert, interactive. No acute distress.
Speech intact.
Follows 2-step requests w/o difficulty. No tremor.
Extra-ocular movements grossly intact.
Facial movements full and symmetric. Hearing intact to normal conversational volume.
Normal UE movements bilaterally.
Neck: full ROM.
Chest: no dyspnea
Heart: no JVD
Ext: (-) Clubbing, (-) Cyanosis, (-) Edema
IMPRESSIONS/RECOMMENDATIONS:
Abrupt onset of brain and spinal lesions consistent with multiple sclerosis based on enhancing and nonenhancing lesions
Provide continued plasmapheresis as listed below
Continue rehabilitation
Continue vitamin B12 replacement
Provide rizatriptan for headache rescue
Patient should continue to work deciding medications for prevention of multiple sclerosis
D/W patient / family
Will continue to follow patient.
Original Note:
Documented by User: Izzy Meredith NP 06/07/23 10:26
Today's Communication / Plan
-
.
Neuro Assessment/Plan
Assessment
This is a 52-year-old male who presented to on 05/31/23 with report of abrupt onset RLE weakness and three falls at home starting on 05/28/23. Earlier this month starting on 05/06/23, patient experienced flu-like symptoms and dizziness and completed
Cedfdinir and steroids for treatment of otitis media and sinusitis.
-CT head 05/18/23: No acute intracranial abnormality. Paranasal sinus mucosal disease/sinusitis.
-Lumbar Spine MRI 05/31/23: Minimal degenerative disk and joint disease in the lumbar spine. No mass, fluid collection or abnormal enhancement on postcontrast imaging. Mild central canal stenosis at L4-5.
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 Differential includes the possibility of an infection, inflammation, spinal cord infarction or demyelinating process such as multiple
sclerosis and/or Lyme disease. Neoplasm much less likely however is included in the differential. No adjacent abnormal enhancement in the paraspinal soft tissues. Follow-up with contrast-enhanced brain and cervical spine MRI imaging is recommended
for complete evaluation. Small focal central disk herniation at T7-8 causing mild cord compression. No myelopathy at this level. 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 1 cm nodule in the right adrenal gland most consistent
with an adenoma.
-CSF 05/31/23: WBC 10, glucose 72, protein 123.
-MRI brain 06/01/23: Mild signal alteration in the bilateral cerebral white matter, right middle cerebellar peduncle, and upper cervical spinal cord. These findings would be considered most suspicious for demyelination given the clinical concern for
multiple sclerosis. Postcontrast enhancement of the lesion in the upper cervical spinal cord suggesting active demyelination.
I. Positive bands consistent with demyelinating disease, not specific as to MS versus NMO or MOGAD
II. Likely flare of new demyelinating disease, multiple sclerosis versus NMO (neuromyelitis optica) are felt most likely, MOGAD is also possible but more rare and less likely
Plan
-Provide rizatriptan 10mg PO x1 now for headache.
-PLEX initiated, complicated by thrombocytopenia and low fibrinogen. Due for treatment 2/ today, on hold for now.
-Completed 5 days of IV methylprednisone.
-Continue gabapentin 400mg HS for sleep.
-Rare lab tests still pending.
-Bladder scan/straight cath protocol
-PT/OT evaluations
-DVT prophylaxis
-Cyanocobalamin replacement for B12 level <400.
-Continue vitamin D3 replacement.
-Patient and his family are reviewing MS disease modifying treatment options. Plan to select a treatment prior to discharge so our office can initiate the process with insurance.
-Patient will need to follow-up with Neurology as an outpatient in about 4 weeks, may see the PIE[employer] CLERK or one of the physicians. Also provided patient with contact info for [facility] to see an MS specialists as an outpatient, has an appointment
scheduled this month.
Subjective/Objective
Subjective Data
Date of Service: June 07, 2023
Patient reports feeling groggy today, mild dizziness, headache, and nausea. He rates his headache a 5/10. His RLE strength feels the same as yesterday. He denies any vision changes, photo/phonophobia speech/swallow difficulty, numbness, chest pain,
palpitations, and shortness of breath.
Objective Data
Vital Signs
Temp Pulse Resp BP Pulse Ox
97.8 F 72 14 128/83 98
06/07/23 07:30 06/07/23 07:30 06/07/23 07:30 06/07/23 07:30 06/07/23 07:30
Lab Results
06/07/23 05:35
06/07/23 05:35
PT 14.5 Sec (11.4-14.6) 06/05/23 12:12
INR 1.15 06/05/23 12:12
APTT 21.9 Sec (23.4-35.0) L 06/05/23 12:12
Sodium 135 mmol/L (135-145) 06/07/23 05:35
Potassium 4.7 mmol/L (3.5-5.1) 06/07/23 05:35
BUN 29 mg/dl (9-20) H 06/07/23 05:35
Glucose 132 mg/dl (70-99) H 06/07/23 05:35
Calcium 8.6 mg/dl (8.4-10.2) 06/07/23 05:35
Whole Bld Vitamin B1 157 nmol/L (70-180) 05/31/23 09:03
Vitamin B12 387 pg/ml (239-931) 05/31/23 09:03
Patient Allergies
No Known Allergies Allergy (Unverified 05/18/23 16:12)
Review of Systems
-
History Source: Patient
Constitutional: Fatigue
EENT: Negative Blurry Vision, Decreased Vision or Swallowing Difficulty
Respiratory: Negative Cough or Trouble Breathing
Cardiac: Negative Chest Pain or Palpitations
Abdomen/GI: Nausea; Negative Constipated
Genitourinary: Negative Difficulty Voiding
Neuro: Dizzy, Headache, Weakness and Ataxia; Negative Numbness, Tremors or Speech Problem
Physical Exam
-
General: Well Developed, Well Nourished and No Apparent Distress
Eyes: No Ptosis and PERRLA
HEENT: Normocephalic and Atraumatic
Neck: Full Range of Motion
Respiratory: No Dyspnea
GI: Non-distended
Extremities: No Clubbing, No Cyanosis and No Edema
Psych: Unremarkable
Extended Neurological Exam
Mood & Affect: Mood Unremarkable and Affect Unremarkable
Attention Span & Concentration: Awake, Alert and Interactive
Memory: Unremarkable and Able to Recall
Tremor: Hand Tremor Absent and Head Tremor Absent
Involuntary Movement: None
Speech: Quality Unremarkable, Quantity Unremarkable and Rate of Production Unremarkable
Cranial Nerve II: Left Eye: Pupillary Reactivity Unremarkable, Pupillary Size Unremarkable and Visual Rivers Intact
Cranial Nerve II: Right Eye: Pupillary Reactivity Unremarkable, Pupillary Size Unremarkable and Visual Rivers Intact
Cranial Nerves III, IV, : Extraocular Movement: Extraocular Movement Full in all Directions
Cranial Nerve VII: Facial Symmetry: Normal Facial Symmetry
Cranial Nerve VIII: Hearing: Unremarkable Hearing to Normal Conversational Volume
Cranial Nerves IX, X: Palate Movement: Palate Elevation Symmetric
Cranial Nerve XI: Shoulder Shrug: Unremarkable
Cranial Nerve XII: Tongue Protusion: Midline
Muscle Strength, Overall: Reduced on Right (R hip ext/flexion 4/5, R plantar/dorsiflexion 4/5)
Muscle Bulk & Tone: Bulk Unremarkable and Tone Unremarkable
Pronator Drift: No Drift in Upper Extremities and Drift in Right Lower Extremity
Coordination: [id number]-[id number] Testing Unremarkable
Data Reviewed
-
CT Head: Report Reviewed and Image Reviewed
MRI Head: Report Reviewed and Image Reviewed
MRI Thoracic Spine: Report Reviewed and Image Reviewed
MRI Lumbar Spine: Report Reviewed and Image Reviewed
Medical Test Reports: Report Reviewed (CSF)
Labs: Report Reviewed
Reviewed with: Physician, Patient and Family
Medications
-
Active Medications
Generic Name Dose Route Start Last Admin
Trade Name Freq PRN Reason Stop Dose Admin
Acetaminophen 650 mg 06/02/23 13:04 06/06/23 10:54
Acetaminophen 325 Mg Tablet PO 06/30/23 13:03 650 mg
Q6HPRN PRN Administration
mild pain/ fever>100.5F
Amlodipine Besylate 5 mg 06/03/23 14:00 06/06/23 08:38
Amlodipine 5 Mg Tablet PO 07/01/23 13:59 5 mg
DAILY YOHANA Administration
Cholecalciferol 25 mcg 06/01/23 08:00 06/06/23 08:38
Cholecalciferol (Vitamin D3) 25 Mcg Tablet (1,000 Units) PO 06/29/23 07:59 25 mcg
DAILY YOHANA Administration
Cyanocobalamin 1,000 mcg 06/01/23 10:00 06/06/23 08:38
Cyanocobalamin 1,000 Mcg Tablet PO 06/29/23 09:59 1,000 mcg
DAILY YOHANA Administration
Dextrose 12.5 grams 06/01/23 22:00
Dextrose 50% (0.5 Grams/Ml) 50 Ml Syringe IV 06/29/23 21:59
[id number] PRN
hypoglycemia
Protocol
Enoxaparin Sodium 40 mg 05/31/23 18:00 06/06/23 16:29
Enoxaparin Sodium 40 Mg/0.4 Ml Syringe SC 06/28/23 17:59 Not Given
QPM YOHANA
Gabapentin 400 mg 06/05/23 22:00 06/06/23 21:58
Gabapentin 400 Mg Capsule PO 07/03/23 21:59 400 mg
HS YOHANA Administration
Glucagon 1 mg 06/01/23 22:00
Glucagon 1 Mg Vial IM 06/29/23 21:59
PRN PRN
hypoglycemia - no IV access
Protocol
Hydralazine HCl 10 mg 06/04/23 11:42 06/06/23 19:21
Hydralazine 20 Mg/Ml Vial IV 06/30/23 09:49 10 mg
Q4HPRN PRN Administration
SBP>150
Insulin Aspart 0 units 06/02/23 07:30 06/07/23 08:14
Insulin Aspart Low Resistance 300 Units/3 Ml Pen.Injctr SC 06/30/23 07:29 Not Given
AC YOHANA
Protocol
Melatonin 3 mg 06/05/23 20:00 06/06/23 21:58
Melatonin 3 Mg Tablet PO 07/03/23 19:59 3 mg
HSPRN PRN Administration
insomnia
Pantoprazole Sodium 40 mg 06/01/23 10:00 06/06/23 08:38
Pantoprazole 40 Mg Delayed Release Tablet PO 06/29/23 09:59 40 mg
DAILY YOHANA Administration
Prednisone 50 mg 06/06/23 08:00 06/06/23 08:38
Prednisone 50 Mg Tablet PO 06/12/23 08:01 50 mg
DAILY YOHANA Administration
Sodium Chloride 0 flush 05/31/23 16:00 06/05/23 08:09
Sodium Chloride 0.9% (Flush) Syringe IV 06/28/23 15:59 2 flush
PER PROTOCOL YOHANA Administration
Home Medications
�Medication �Instructions �Recorded
cholecalciferol (vitamin D3) 25 25 mcg PO DAILY Supplement 05/31/23
mcg (1,000 unit) chewable tablet
(Vitamin D3)
multivitamin with minerals-folic 1 tab PO DAILY Supplement 05/31/23
acid 80 mcg chewable tablet

Documented by User: Joel Tovar MD 06/07/23 14:21
Neuro Assessment/Plan
Plan
-Provide rizatriptan 10mg PO x1 now for headache.
-PLEX initiated, complicated by thrombocytopenia and low fibrinogen. Due for treatment 2 out of 5 today, on hold for now.
-Completed 5 days of IV methylprednisone.
-Continue gabapentin 400mg HS for sleep.
-Rare lab tests still pending.
-Bladder scan/straight cath protocol
-PT/OT evaluations
-DVT prophylaxis
-Cyanocobalamin replacement for B12 level <400.
-Continue vitamin D3 replacement.
-Patient and his family are reviewing MS disease modifying treatment options. Plan to select a treatment prior to discharge so our office can initiate the process with insurance.
Patient will need to eventually follow-up with Neurology as an outpatient in about 4 weeks, may see the PIE[employer] CLERK or one of the physicians. Also provided patient with contact info for [facility] to see an MS specialists as an outpatient, has an
appointment scheduled this month.
--- NOTE | 2023-06-07 10:00 | W.PN.REHAB ---
Today's Communication / Plan
-
Patient still getting PLEX treatments this week and into next week. May still need further inpatient rehabilitation before discharge home depending on his continued progress with strength and functional mobility. Will continue to monitor.
Assessment/Function
-
Assessment:
General: Was sleeping but easily arousable, oriented and in decent spirits. Able to answer questions and follow commands appropriately. Right chest triple lumen catheter.
Extremities:UE with slight apraxia, dysmetria on the right, but some improvement. No tremor, no significant ataxia. Strength UE 5/5 bilaterally. No sensory deficits or asymmetry.
LE with right hip flexor weakness 4/5 and leg raise in bed 4/5, right knee and ankle 5/5. No sensory deficits or asymmetry in the LE's or feet. No clonus or other upper motor neuron signs.
Function:
Transfers: Supervision
Ambulation: min A with walker 1st trial, min-mod A for 2nd 40' trial
Plan
-
Assessment:
52 year old male with demyelinating disease, could be multiple sclerosis, MOGAD, or NMO which would be a new diagnosis.
PM&R PT/OT to increase independence with ADLs, improve balance, coordination, endurance, strength, mobility, community reintegration, decreased burden of care on others and family education.
Weakness/demyelinating disease: Completed high-dose IV steroids for total of 5 days.
-Started plasma exchange on Tuesday - likely until next week in the hospital for these treatments.
Pain: acetaminophen as needed. Paresthesias seem better today. Could consider neuroleptic agent such as gabapentin for paresthesias if worsens or more neuropathic pain exists.
Bowel: Colace and Senna, PRN bisacodyl.
Bladder: Monitor for any bladder dysfunction or retention
GI Prophylaxis: Pantoprazole
DVT Prophylaxis: lovenox sq
Safety: Continue to reinforce assistance with all transfers.
Code Status: Full code
Dispo: Will plan for acute rehab as of now. Still may improve during the PLEX treatments and will continue to monitor.
Subjective
-
Date of Service: June 07, 2023
Patient seen in rehabilitation follow up this morning. He states he feels 'in a fog' this morning. Has started plasma exchange this week. He is not sure there has been any significant change in his weakness or functional status as of yet with the
steroids and plasma exchange. Denies any pain, no dizziness or lightheadedness. No other new complaints today.
Vital Signs / Labs
-
Vital Signs and Labs:
Temp Pulse Resp BP Pulse Ox
97.8 F 72 14 128/83 98
06/07/23 07:30 06/07/23 07:30 06/07/23 07:30 06/07/23 07:30 06/07/23 07:30
06/07/23 05:35
06/07/23 05:35
06/06/23 06/06/23 06/06/23
12:24 17:22 22:02
WBC
RBC
Plt Count
Abs Immat Gran (auto)
Absolute Lymphs (auto)
Immature Gran %
Neutrophils %
Lymphocytes %
Fibrinogen
BUN
Glucose
Magnesium
Total Bilirubin
ALT
Total Protein
Albumin
POC Glucose 136 H 209 H 188 H
06/07/23 06/07/23
05:35 07:10
WBC 4.2 L
RBC 4.65 L
Plt Count 80 L D
Abs Immat Gran (auto) 0.2 H
Absolute Lymphs (auto) 0.2 L
Immature Gran % 4.5 H
Neutrophils % 84.3 H
Lymphocytes % 4.3 L
Fibrinogen 92 L*
BUN 29 H
Glucose 132 H
Magnesium 2.7 H
Total Bilirubin 1.4 H
ALT 95 H
Total Protein 4.4 L
Albumin 3.0 L
POC Glucose 131 H
[2023-06-07] MEDS: VITAMIN B-12 1000 MCG PO (10:53)
[2023-06-07] MEDS: NORVASC 5 MG PO (10:53)
[2023-06-07] MEDS: DELTASONE 50 MG PO (10:53)
[2023-06-07] MEDS: PROTONIX 40 MG PO (10:53)
[2023-06-07] MEDS: VITAMIN D3 (cholecalciferol) 25 MCG PO (10:54)
[2023-06-07] MEDS: MAXALT MLT (ORALLY DISINTEGRATING) 10 MG PO (11:02)
[2023-06-07 11:20] VITALS: BP 150/86
--- NOTE | 2023-06-07 11:54 | W.PN.ONC ---
Today's Communication / Plan
-
PLEX #2 today, and QOD
Monitor CBC and fibrinogen; will give cryo and/or FFP as needed to keep on schedule
Impression
Impression
weakness, secondary to suspected demyelinating process - transverse myelitis, MS, NMO, etc; limited improvement on high dose steroids
Plan
Plan
[facility] is here for second PLEX session
With fibrinogen still <100 s/p FFPx2 yesterday, will give pool of cryoptt after treatment today
Monitor fibrinogen daily; if persistently low, to consider exchange using 1/2 albumin and 1/2 FFP as per [facility] nurse
Thrombocytopenia is common w/ PLEX. Will update CBC after treatment and monitor labs and for any bleeding.
Monitor labs daily, CBC, CMP, calcium, Mag, fibrinogen - ordered
Subjective/Objective
Subjective/Objective
no new issues, tolerated PLEX #1 well on 06/04
[facility] in room setting up PLEX #2
Leg weakness about the same
No bleeding
Vital Signs:
Vital Signs
Temp Pulse Resp BP Pulse Ox
97.8 F 72 14 128/83 98
06/07/23 07:30 06/07/23 07:30 06/07/23 07:30 06/07/23 07:30 06/07/23 07:30
Lab Results:
Laboratory Data
WBC 4.2 10^3/uL (4.8-10.8) L 06/07/23 05:35
Hgb 14.2 g/dL (13.0-18.0) 06/07/23 05:35
Plt Count 80 10^3/uL (130-400) L D 06/07/23 05:35
PT 14.5 Sec (11.4-14.6) 06/05/23 12:12
INR 1.15 06/05/23 12:12
APTT 21.9 Sec (23.4-35.0) L 06/05/23 12:12
eGFR > 60.00 06/07/23 05:35
Orders
Orders
Orders From Last 24 Hours
06/07/23 05:35
CBC/With Diff [Complete Blood Count/With Diff] IN AM
CMP [Comprehensive Metabolic Panel] IN AM
Fibrinogen IN AM
Magnesium IN AM
06/07/23 11:52
* Blood Bank Products Routine
06/07/23 12:00
Albumin Human 5% 250 ml [Albumin 5%] 12.5 grams in 250 ml INTRACATH .Q8M
Calcium Gluconate [Calcium Gluconate 10% Injection] 4,200 mg 0.9% Sodium Chloride 250 ml [Nss] 250 ml IV ONCE
Heparin See Dose Instructions INTRACATH ONCE ONE
06/07/23 16:00
CBC/No Diff [Complete Blood Count/No Diff] Routine
06/08/23 06:00
CBC/With Diff [Complete Blood Count/With Diff] IN AM
CMP [Comprehensive Metabolic Panel] IN AM
Fibrinogen IN AM
Magnesium IN AM
06/09/23 06:00
CBC/With Diff [Complete Blood Count/With Diff] IN AM
CMP [Comprehensive Metabolic Panel] IN AM
Fibrinogen IN AM
Magnesium IN AM
06/10/23 06:00
CBC/With Diff [Complete Blood Count/With Diff] IN AM
CMP [Comprehensive Metabolic Panel] IN AM
Fibrinogen IN AM
Magnesium IN AM
06/11/23 06:00
CBC/With Diff [Complete Blood Count/With Diff] IN AM
CMP [Comprehensive Metabolic Panel] IN AM
Fibrinogen IN AM
Magnesium IN AM
06/12/23 06:00
CBC/With Diff [Complete Blood Count/With Diff] IN AM
CMP [Comprehensive Metabolic Panel] IN AM
Fibrinogen IN AM
Magnesium IN AM
06/13/23 06:00
CBC/With Diff [Complete Blood Count/With Diff] IN AM
CMP [Comprehensive Metabolic Panel] IN AM
Fibrinogen IN AM
Magnesium IN AM
06/14/23 06:00
CBC/With Diff [Complete Blood Count/With Diff] IN AM
CMP [Comprehensive Metabolic Panel] IN AM
Fibrinogen IN AM
Magnesium IN AM
06/15/23 06:00
CBC/With Diff [Complete Blood Count/With Diff] IN AM
CMP [Comprehensive Metabolic Panel] IN AM
Fibrinogen IN AM
Magnesium IN AM
[2023-06-07 12:40] LABS: Glucose - Point of Care 115 mg/dl (70-99)
[2023-06-07] MEDS: ALBUMIN 5% 250 INTRACATH (12:53)
[2023-06-07] MEDS: HEPARIN 2.20000000000000018 UNITS INTRACATH (12:53)
[2023-06-07] MEDS: CALCIUM GLUCONATE 10% INJECTION 292 MG IV (12:53)
--- NOTE | 2023-06-07 14:22 | CM ---
Reviewed the chart notes. PLEX #2 today. CM continues to be available to patient/family and is monitoring medical plan for needs at discharge.
Plan: Discharge to [facility] once PLEX treatments completed. Auth will be needed.
[2023-06-07 15:12] VITALS: BP 137/80
[2023-06-07 15:42] LABS: Hematocrit 40.8 % (39.0-52.0); Hemoglobin 14.9 g/dL (13.0-18.0); Mean Corp Hgb Conc. 36.5 g/dL (33.0-37.0); Mean Corpuscular Hgb 30.3 pg (27.0-31.0); Mean Corpuscular Volume 82.9 fL (80.0-94.0); Mean Platelet Volume 9.8 fL (7.4-10.4); Platelet Count 63 10^3/uL (130-400); Red Blood Cell Count 4.92 10^6/uL (4.70-6.10); Red Cell Dist. Width 13.7 % (11.5-14.5); White Blood Cell Count 5.3 10^3/uL (4.8-10.8)
[2023-06-07 16:43] VITALS: BP 132/73
[2023-06-07 17:08] VITALS: BP 141/91
[2023-06-07 17:13] LABS: Glucose - Point of Care 206 mg/dl (70-99)
[2023-06-07 17:31] VITALS: BP 140/90
[2023-06-07] MEDS: NOVOLOG FLEXPEN-LOW RESISTANCE 2 UNITS SC (18:28)
[2023-06-07] MEDS: LOVENOX 40 MG SC (20:32)
[2023-06-07 21:33] LABS: Glucose - Point of Care 176 mg/dl (70-99)
[2023-06-07] MEDS: NEURONTIN 400 MG PO (23:57)
[2023-06-07] MEDS: MELATONIN 3 MG PO (23:57)
[2023-06-08] VITALS: BP 149/93
[2023-06-08 04:14] LABS: % Basophils 0.2 % (0-2); % Eosinophils 0.4 % (0-6); % Immature Granulocytes 4.3 % (0-0.5); % Lymphocytes 5.6 % (20.5-51.1); % Neutrophils 84.5 % (42.2-75.2); Absolute Immature Granulocytes 0.2 10^3/uL (0-0.05); Absolute Lymphocytes 0.3 10^3/uL (1.2-3.4); Absolute Monocytes 0.3 10^3/uL (0.1-0.6); Absolute Neutrophils 4.7 10^3/uL (1.4-6.5); Hematocrit 40.5 % (39.0-52.0); Hemoglobin 14.8 g/dL (13.0-18.0); Mean Corp Hgb Conc. 36.5 g/dL (33.0-37.0); Mean Corpuscular Hgb 30.3 pg (27.0-31.0); Mean Corpuscular Volume 82.8 fL (80.0-94.0); Mean Platelet Volume 9.2 fL (7.4-10.4); Nucleated Red Blood Cells % 0 % (-); Platelet Count 74 10^3/uL (130-400); Red Blood Cell Count 4.89 10^6/uL (4.70-6.10); Red Cell Dist. Width 13.5 % (11.5-14.5); White Blood Cell Count 5.6 10^3/uL (4.8-10.8)
[2023-06-08 04:29] LABS: Fibrinogen 132 MG/DL (199-459)
[2023-06-08 04:39] LABS: ALT (SGPT) 65 U/L (0-50); AST (SGOT) 30 U/L (17-59); Albumin 3.6 g/dl (3.5-5.0); Alkaline Phosphatase 26 U/L (38-126); Blood Urea Nitrogen 26 mg/dl (9-20); Carbon Dioxide 30 mmol/L (22-30); Chloride 98 mmol/L (98-107); Estimated Creatinine Clearance > 125 ml/min; Glucose 125 mg/dl (70-99); Magnesium 2.6 mg/dl (1.6-2.3); Potassium 4.9 mmol/L (3.5-5.1); Sodium 135 mmol/L (135-145); Total Bilirubin 1.8 mg/dl (0.2-1.3); Total Protein 4.7 g/dl (6.3-8.2); eGFR > 60.00
--- NOTE | 2023-06-08 06:46 | W.PN.ONC2 ---
Today's Communication / Plan
-
PLEX tomorrow 06/08 will be Tx # 3/5.
Switching from 100% Albumin to 50/50% Albumin & FFP on count of hypofibrinogenemia.
Impression
Impression
weakness, secondary to suspected demyelinating process - transverse myelitis, MS, NMO, etc; limited improvement on high dose steroids
Plan
Plan
Continue PLEX QOD x 5. S/P Tx x 2. For Tx # 3 on 06/08. Replacement fluid being changed from 100% 5% Albumin to 50/50 FFP & Albumin for assistance of hypofibrinogenemia.
Fibrinogen improved to 132 s/p cryoprecipitate yesterday.
Monitor fibrinogen daily.
Thrombocytopenia is common w/ PLEX. Will update CBC after treatment and monitor labs and for any bleeding.
Monitor labs daily, CBC, CMP, calcium, Mag, fibrinogen - ordered
Subjective/Objective
Chief Complaint
ACS Heme Onc
Subjective
No complaints. s/p PLEX x 2 so far (5 QOD scheduled). Polyuria.
Vital Signs:
Vital Signs
Temp Pulse Resp BP Pulse Ox
98.0 F 78 16 149/93 98
06/07/23 23:56 06/07/23 23:56 06/07/23 23:56 06/08/23 00:00 06/07/23 23:56
Lab Results:
Laboratory Data
WBC 5.6 10^3/uL (4.8-10.8) 06/08/23 04:01
Hgb 14.8 g/dL (13.0-18.0) 06/08/23 04:01
Plt Count 74 10^3/uL (130-400) L 06/08/23 04:01
PT 14.5 Sec (11.4-14.6) 06/05/23 12:12
INR 1.15 06/05/23 12:12
APTT 21.9 Sec (23.4-35.0) L 06/05/23 12:12
eGFR > 60.00 06/08/23 04:01
Physical Exam
HEENT: No Jaundice
Cardiology: S1 and S2
Pulmonary: Clear
GI: Soft
[2023-06-08 07:53] LABS: Glucose - Point of Care 116 mg/dl (70-99)
[2023-06-08 08:55] VITALS: BP 145/1
--- NOTE | 2023-06-08 08:58 | W.PN.NEURO.1 ---
Addendum entered and electronically signed by Joel Tovar MD 06/08/23 10:32:
Studies reviewed.
I have personally examined the patient. I reviewed and agree with the INVESTOR RELATIONS DIRECTOR's Note.
My addenda:
Awake, alert, interactive. No acute distress.
Speech intact.
Follows 2-step requests w/o difficulty. No tremor.
Extra-ocular movements grossly intact.
Facial movements full and symmetric. Hearing intact to normal conversational volume.
Normal UE movements bilaterally.
Neck: full ROM.
Chest: no dyspnea
Heart: no JVD
Ext: (-) Clubbing, (-) Cyanosis, (-) Edema
IMPRESSIONS/RECOMMENDATIONS:
Abrupt onset of right leg weakness
Most likely due to relapsing-remitting or progressive multiple sclerosis
Attempting to use plasmapheresis to further improve continued right lower extremity weakness, patient now has received 2 out of 5 treatments, appreciate heme-onc assistance
Continuing to await results from NMOSD and MOGAD testing
Continue rehabilitation evaluations
Await decision regarding anti-multiple sclerosis medication initiation
D/W patient / family
All questions answered.
Will continue to follow patient.
Original Note:
Documented by User: Izzy Meredith NP 06/08/23 09:19
Today's Communication / Plan
-
.
Neuro Assessment/Plan
Assessment
This is a 52-year-old male who presented to on 05/31/23 with report of abrupt onset RLE weakness and three falls at home starting on 05/28/23. Earlier this month starting on 05/06/23, patient experienced flu-like symptoms and dizziness and completed
Cedfdinir and steroids for treatment of otitis media and sinusitis.
-CT head 05/18/23: No acute intracranial abnormality. Paranasal sinus mucosal disease/sinusitis.
-Lumbar Spine MRI 05/31/23: Minimal degenerative disk and joint disease in the lumbar spine. No mass, fluid collection or abnormal enhancement on postcontrast imaging. Mild central canal stenosis at L4-5.
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 Differential includes the possibility of an infection, inflammation, spinal cord infarction or demyelinating process such as multiple
sclerosis and/or Lyme disease. Neoplasm much less likely however is included in the differential. No adjacent abnormal enhancement in the paraspinal soft tissues. Follow-up with contrast-enhanced brain and cervical spine MRI imaging is recommended
for complete evaluation. Small focal central disk herniation at T7-8 causing mild cord compression. No myelopathy at this level. 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 1 cm nodule in the right adrenal gland most consistent
with an adenoma.
-CSF 05/31/23: WBC 10, glucose 72, protein 123.
-MRI brain 06/01/23: Mild signal alteration in the bilateral cerebral white matter, right middle cerebellar peduncle, and upper cervical spinal cord. These findings would be considered most suspicious for demyelination given the clinical concern for
multiple sclerosis. Postcontrast enhancement of the lesion in the upper cervical spinal cord suggesting active demyelination.
I. Positive bands consistent with demyelinating disease, not specific as to MS versus NMO or MOGAD
II. Likely flare of new demyelinating disease, multiple sclerosis versus NMO (neuromyelitis optica) are felt most likely, MOGAD is also possible but more rare and less likely
Plan
-PLEX initiated, complicated by thrombocytopenia and low fibrinogen. Tomorrow (05/10/23) will be day 3.
-Completed 5 days of IV methylprednisone.
-Continue gabapentin 400mg HS for sleep.
-Rare lab tests still pending.
-Bladder scan/straight cath protocol
-PT/OT evaluations
-DVT prophylaxis
-Cyanocobalamin replacement for B12 level <400.
-Continue vitamin D3 replacement.
-Patient and his family are reviewing MS disease modifying treatment options. Plan to select a treatment prior to discharge so our office can initiate the process with insurance.
Patient will need to eventually follow-up with Neurology as an outpatient in about 4 weeks, may see the INVESTOR RELATIONS DIRECTOR or one of the physicians. Also provided patient with contact info for [facility] to see an MS specialists as an outpatient, has an
appointment scheduled this month.
Subjective/Objective
Subjective Data
Date of Service: June 08, 2023
No acute events overnight. Patient reports feeling less groggy today and his headache resolved entirely. He denies any vision changes, speech/swallow difficulty, numbness, bowel/bladder difficulty, nausea, chest pain, palpitations, and shortness of
breath. He still reports mild dizziness when standing/walking and his RLE weakness is the same.
Objective Data
Vital Signs
Temp Pulse Resp BP Pulse Ox
98.3 F 69 14 145/1 97
06/08/23 08:55 06/08/23 08:55 06/08/23 08:55 06/08/23 08:55 06/08/23 08:55
Lab Results
06/08/23 04:01
06/08/23 04:01
PT 14.5 Sec (11.4-14.6) 06/05/23 12:12
INR 1.15 06/05/23 12:12
APTT 21.9 Sec (23.4-35.0) L 06/05/23 12:12
Sodium 135 mmol/L (135-145) 06/08/23 04:01
Potassium 4.9 mmol/L (3.5-5.1) 06/08/23 04:01
BUN 26 mg/dl (9-20) H 06/08/23 04:01
Glucose 125 mg/dl (70-99) H 06/08/23 04:01
Calcium 9.0 mg/dl (8.4-10.2) 06/08/23 04:01
Whole Bld Vitamin B1 157 nmol/L (70-180) 05/31/23 09:03
Vitamin B12 387 pg/ml (239-931) 05/31/23 09:03
Patient Allergies
No Known Allergies Allergy (Unverified 05/18/23 16:12)
Review of Systems
-
History Source: Patient
EENT: Negative Blurry Vision, Decreased Vision or Swallowing Difficulty
Respiratory: Negative Cough or Trouble Breathing
Cardiac: Negative Chest Pain or Palpitations
Abdomen/GI: Negative Nausea or Constipated
Genitourinary: Frequency; Negative Difficulty Voiding
Neuro: Dizzy, Weakness (RLE) and Ataxia; Negative Headache, Numbness, Tremors or Speech Problem
Physical Exam
-
General: Well Developed, Well Nourished and No Apparent Distress
Eyes: No Ptosis and PERRLA
HEENT: Normocephalic and Atraumatic
Neck: Full Range of Motion
Respiratory: No Dyspnea
GI: Non-distended
Extremities: No Clubbing, No Cyanosis and No Edema
Psych: Unremarkable
Extended Neurological Exam
Mood & Affect: Mood Unremarkable and Affect Unremarkable
Attention Span & Concentration: Awake, Alert, Interactive and No Difficulty with 2 Step Request
Memory: Unremarkable and Able to Recall
Tremor: Hand Tremor Absent and Head Tremor Absent
Involuntary Movement: None
Speech: Quality Unremarkable, Quantity Unremarkable and Rate of Production Unremarkable
Cranial Nerve II: Left Eye: Pupillary Reactivity Unremarkable, Pupillary Size Unremarkable and Visual Rivers Intact
Cranial Nerve II: Right Eye: Pupillary Reactivity Unremarkable, Pupillary Size Unremarkable and Visual Rivers Intact
Cranial Nerves III, IV, : Extraocular Movement: Extraocular Movement Full in all Directions
Cranial Nerve VII: Facial Symmetry: Normal Facial Symmetry
Cranial Nerve VIII: Hearing: Unremarkable Hearing to Normal Conversational Volume
Cranial Nerves IX, X: Palate Movement: Palate Elevation Symmetric
Cranial Nerve XI: Shoulder Shrug: Unremarkable
Cranial Nerve XII: Tongue Protusion: Midline
Muscle Strength, Overall: Reduced on Right (R hip flex/ext 4/5, R dorsi/plantarflexion 4/5)
Muscle Bulk & Tone: Bulk Unremarkable and Tone Unremarkable
Pronator Drift: No Drift in Upper Extremities and No Drift in Lower Extremities
Coordination: [id number] Testing Unremarkable
Data Reviewed
-
Labs: Report Reviewed
Reviewed with: Physician and Patient
Medications
-
Active Medications
Generic Name Dose Route Start Last Admin
Trade Name Freq PRN Reason Stop Dose Admin
Acetaminophen 650 mg 06/02/23 13:04 06/06/23 10:54
Acetaminophen 325 Mg Tablet PO 06/30/23 13:03 650 mg
Q6HPRN PRN Administration
mild pain/ fever>100.5F
Amlodipine Besylate 5 mg 06/03/23 14:00 06/07/23 10:53
Amlodipine 5 Mg Tablet PO 07/01/23 13:59 5 mg
DAILY YOHANA Administration
Cholecalciferol 25 mcg 06/01/23 08:00 06/07/23 10:54
Cholecalciferol (Vitamin D3) 25 Mcg Tablet (1,000 Units) PO 06/29/23 07:59 25 mcg
DAILY YOHANA Administration
Cyanocobalamin 1,000 mcg 06/01/23 10:00 06/07/23 10:53
Cyanocobalamin 1,000 Mcg Tablet PO 06/29/23 09:59 1,000 mcg
DAILY YOHANA Administration
Dextrose 12.5 grams 06/01/23 22:00
Dextrose 50% (0.5 Grams/Ml) 50 Ml Syringe IV 06/29/23 21:59
[id number] PRN
hypoglycemia
Protocol
Enoxaparin Sodium 40 mg 05/31/23 18:00 06/07/23 20:32
Enoxaparin Sodium 40 Mg/0.4 Ml Syringe SC 06/28/23 17:59 40 mg
QPM YOHANA Administration
Gabapentin 400 mg 06/05/23 22:00 06/07/23 23:57
Gabapentin 400 Mg Capsule PO 07/03/23 21:59 400 mg
HS YOHANA Administration
Glucagon 1 mg 06/01/23 22:00
Glucagon 1 Mg Vial IM 06/29/23 21:59
PRN PRN
hypoglycemia - no IV access
Protocol
Hydralazine HCl 10 mg 06/04/23 11:42 06/06/23 19:21
Hydralazine 20 Mg/Ml Vial IV 06/30/23 09:49 10 mg
Q4HPRN PRN Administration
SBP>150
Albumin Human 12.5 grams in 250 mls @ 2,125 mls/hr 06/07/23 12:00 06/07/23 12:53
Albumin 5% INTRACATH 250 mls
.Q8M YOHANA Administration
Insulin Aspart 0 units 06/02/23 07:30 06/07/23 18:28
Insulin Aspart Low Resistance 300 Units/3 Ml Pen.Injctr SC 06/30/23 07:29 2 units
AC YOHANA Administration
Protocol
Melatonin 3 mg 06/05/23 20:00 06/07/23 23:57
Melatonin 3 Mg Tablet PO 07/03/23 19:59 3 mg
HSPRN PRN Administration
insomnia
Pantoprazole Sodium 40 mg 06/01/23 10:00 06/07/23 10:53
Pantoprazole 40 Mg Delayed Release Tablet PO 06/29/23 09:59 40 mg
DAILY YOHANA Administration
Prednisone 50 mg 06/06/23 08:00 06/07/23 10:53
Prednisone 50 Mg Tablet PO 06/12/23 08:01 50 mg
DAILY YOHANA Administration
Sodium Chloride 0 flush 05/31/23 16:00 06/05/23 08:09
Sodium Chloride 0.9% (Flush) Syringe IV 06/28/23 15:59 2 flush
PER PROTOCOL YOHANA Administration
Home Medications
�Medication �Instructions �Recorded
cholecalciferol (vitamin D3) 25 25 mcg PO DAILY Supplement 05/31/23
mcg (1,000 unit) chewable tablet
(Vitamin D3)
multivitamin with minerals-folic 1 tab PO DAILY Supplement 05/31/23
acid 80 mcg chewable tablet

Documented by User: Joel Tovar MD 06/08/23 10:14
Past History
Past History
ED Past Medical History: Other (Multiple sclerosis May 2023)
ED Past Surgical History: None
Social History
Tobacco: Non-smoker
Alcohol: None
Drug: None
Personal: Single
Living: with family
Employment: Employed
Family History
Family History: Other (Reviewed and noncontributory)
Medications
-
Medications:
Generic Name Dose Route Start Last Admin
Trade Name Freq PRN Reason Stop Dose Admin
Acetaminophen 650 mg 06/02/23 13:04 06/06/23 10:54
Acetaminophen 325 Mg Tablet PO 06/30/23 13:03 650 mg
Q6HPRN PRN Administration
mild pain/ fever>100.5F
Amlodipine Besylate 5 mg 06/03/23 14:00 06/08/23 09:44
Amlodipine 5 Mg Tablet PO 07/01/23 13:59 5 mg
DAILY YOHANA Administration
Cholecalciferol 25 mcg 06/01/23 08:00 06/08/23 09:43
Cholecalciferol (Vitamin D3) 25 Mcg Tablet (1,000 Units) PO 06/29/23 07:59 25 mcg
DAILY YOHANA Administration
Cyanocobalamin 1,000 mcg 06/01/23 10:00 06/08/23 09:44
Cyanocobalamin 1,000 Mcg Tablet PO 06/29/23 09:59 1,000 mcg
DAILY YOHANA Administration
Dextrose 12.5 grams 06/01/23 22:00
Dextrose 50% (0.5 Grams/Ml) 50 Ml Syringe IV 06/29/23 21:59
[id number] PRN
hypoglycemia
Protocol
Enoxaparin Sodium 40 mg 05/31/23 18:00 06/07/23 20:32
Enoxaparin Sodium 40 Mg/0.4 Ml Syringe SC 06/28/23 17:59 40 mg
QPM YOHANA Administration
Gabapentin 400 mg 06/05/23 22:00 06/07/23 23:57
Gabapentin 400 Mg Capsule PO 07/03/23 21:59 400 mg
HS YOHANA Administration
Glucagon 1 mg 06/01/23 22:00
Glucagon 1 Mg Vial IM 06/29/23 21:59
PRN PRN
hypoglycemia - no IV access
Protocol
Hydralazine HCl 10 mg 06/04/23 11:42 06/06/23 19:21
Hydralazine 20 Mg/Ml Vial IV 06/30/23 09:49 10 mg
Q4HPRN PRN Administration
SBP>150
Albumin Human 12.5 grams in 250 mls @ 2,125 mls/hr 06/07/23 12:00 06/07/23 12:53
Albumin 5% INTRACATH 250 mls
.Q8M YOHANA Administration
Insulin Aspart 0 units 06/02/23 07:30 06/08/23 09:42
Insulin Aspart Low Resistance 300 Units/3 Ml Pen.Injctr SC 06/30/23 07:29 Not Given
AC YOHANA
Protocol
Melatonin 3 mg 06/05/23 20:00 06/07/23 23:57
Melatonin 3 Mg Tablet PO 07/03/23 19:59 3 mg
HSPRN PRN Administration
insomnia
Pantoprazole Sodium 40 mg 06/01/23 10:00 06/08/23 09:44
Pantoprazole 40 Mg Delayed Release Tablet PO 06/29/23 09:59 40 mg
DAILY YOHANA Administration
Prednisone 50 mg 06/06/23 08:00 06/08/23 09:44
Prednisone 50 Mg Tablet PO 06/12/23 08:01 50 mg
DAILY YOHANA Administration
Sodium Chloride 0 flush 05/31/23 16:00 06/05/23 08:09
Sodium Chloride 0.9% (Flush) Syringe IV 06/28/23 15:59 2 flush
PER PROTOCOL YOHANA Administration
--- NOTE | 2023-06-08 09:35 | W.PN.HOSP.TC ---
Addendum entered and electronically signed by Ravi Jaime MD 06/08/23 16:34:
Patient seen and examined
Discussed with resident.
Impression/plan:
52 years old male with no prior medical history who presents with dizziness as well as right lower extremity weakness
Extensive workup including CSF with positive oligoclonal bands, imaging consistent with demyelinating process.
Completed 5-day course of IV Solu-Medrol with no significant improvement of the right lower extremity weakness
Has been transitioned to oral steroids with prednisone with plan of taper over next 10 days
Initiated on plasmapheresis with plan for 5 sessions every other day. Monitor CBC/BMP closely. Replete fibrinogen and platelets.
B12 initiated by neurology
Continue gabapentin as per neurology.
Outpatient neurology follow-up with consideration of disease modifying treatment options.
Original Note:
Today's Communication/Plan
-
Plasmapheresis 06/08
Monitor labs daily, CBC, CMP, calcium, mag, fibrinogen
Replete fibrinogen and platelets
Assessment / Plan
Assessment / Plan
IMPRESSION: 52-year-old with no significant medical history presents with dizziness and right lower extremity weakness. Possible etiologies include multiple sclerosis, transverse myelitis, stroke
#Abrupt onset of right lower extremity weakness
Extensive workup including CSF positive oligoclonal bands, consistent with demyelinating process
Completed Solu-Medrol 1g, transition to oral steroids 50 mg prednisone for total of 7 days (05/11)
Discussed with neurology. Started on plasmapheresis 06/04. (04/11). Next 06/08
Oncology on board. Monitor daily labs, CBC, CMP, calcium, mag, fibrinogen
Replete fibrinogen and platelets
Continue Protonix for GI prophylaxis
PT/OT
Continue gabapentin and B12 supplementation
Acute rehabilitation following hospitalization
# Hyperglycemia
Most likely increase is from steroid use.
A1c 4.7 06/01/2023
On SSI, monitor glucose level
# Hypertension primary
Start Amlodipine for BP
Hydralazine as needed for greater than 150 systolic
Adrenal adenoma
Follow-up as outpatient
Monitor
DVT prophylaxis-Lovenox
Anticipated Discharge: > 48 hours
Objective Data
-
Labs:
Laboratory Results
06/08/23
04:01
WBC 5.6
Hgb 14.8
Hct 40.5
Plt Count 74 L
Sodium 135
Potassium 4.9
Chloride 98
Carbon Dioxide 30
BUN 26 H
Creatinine 0.7
Glucose 125 H
Calcium 9.0
Total Bilirubin 1.8 H
AST 30
ALT 65 H
Alkaline Phosphatase 26 L
Vital Signs:
Vital Signs
Temp Pulse Resp BP Pulse Ox
98.3 F 69 14 145/1 97
06/08/23 08:55 06/08/23 08:55 06/08/23 08:55 06/08/23 08:55 06/08/23 08:55
I&O
06/07/23 06/08/23 06/09/23
06:59 06:59 06:59
Intake Total 1789
Balance 1789
Review of Systems
-
All other systems: Reviewed and negative (Except as documented)
Physical Exam
-
General: Well Developed
HEENT: Normocephalic
Respiratory: Clear to Auscultation; Negative Wheezes, Rales or Rhonchi
Cardiac: Regular Rhythm and S1/S2
GI: Soft, Nontender, Nondistended and Normal Bowel Sounds
Musculoskeletal: No Clubbing, No Cyanosis and No Edema
Neuro: Awake, Alert, Oriented and AO x 3
Psych: Calm
Data Reviewed
-
Labs: Labs Reviewed by me and Discussed with Physician
[2023-06-08] MEDS: NOVOLOG FLEXPEN-LOW RESISTANCE SC ×2 (09:42→13:38)
[2023-06-08] MEDS: VITAMIN D3 (cholecalciferol) 25 MCG PO (09:43)
[2023-06-08] MEDS: VITAMIN B-12 1000 MCG PO (09:44)
[2023-06-08] MEDS: DELTASONE 50 MG PO (09:44)
[2023-06-08] MEDS: PROTONIX 40 MG PO (09:44)
[2023-06-08] MEDS: NORVASC 5 MG PO (09:44)
[2023-06-08 12:00] VITALS: BP 159/90; PULSE 103
[2023-06-08 12:22] VITALS: BP 135/86; BP 156/96; BP 159/90; PULSE 103; PULSE 82; PULSE 89
[2023-06-08 12:38] LABS: Glucose - Point of Care 132 mg/dl (70-99)
--- NOTE | 2023-06-08 13:49 | CM ---
Reviewed the chart notes. Plan is for PLEX QOD x 5 treatments. Patient received 2nd treatment yesterday. CM continues to be available to patient/family and is monitoring medical plan for needs at discharge.
Plan: Discharge to [facility] once PLEX treatments completed. Auth will be needed.
[2023-06-08 15:11] VITALS: BP 148/76
[2023-06-08 16:57] LABS: Glucose - Point of Care 199 mg/dl (70-99)
[2023-06-08] MEDS: LOVENOX 40 MG SC (17:05)
[2023-06-08] MEDS: NOVOLOG FLEXPEN-LOW RESISTANCE 1 UNITS SC (17:06)
[2023-06-08 21:57] LABS: Glucose - Point of Care 187 mg/dl (70-99)
[2023-06-08] MEDS: NEURONTIN 400 MG PO (22:14)
[2023-06-08 23:10] VITALS: BP 150/103
[2023-06-09 04:59] LABS: % Basophils 0.2 % (0-2); % Eosinophils 0.9 % (0-6); % Immature Granulocytes 2.9 % (0-0.5); % Lymphocytes 8.8 % (20.5-51.1); % Monocytes 6.4 % (1.7-9.3); % Neutrophils 80.8 % (42.2-75.2); Absolute Immature Granulocytes 0.1 10^3/uL (0-0.05); Absolute Lymphocytes 0.4 10^3/uL (1.2-3.4); Absolute Monocytes 0.3 10^3/uL (0.1-0.6); Absolute Neutrophils 3.7 10^3/uL (1.4-6.5); Hematocrit 40.7 % (39.0-52.0); Hemoglobin 14.7 g/dL (13.0-18.0); Mean Corp Hgb Conc. 36.1 g/dL (33.0-37.0); Mean Corpuscular Hgb 30.6 pg (27.0-31.0); Mean Corpuscular Volume 84.6 fL (80.0-94.0); Nucleated Red Blood Cells % 0 % (-); Platelet Count 71 10^3/uL (130-400); Red Blood Cell Count 4.81 10^6/uL (4.70-6.10); Red Cell Dist. Width 13.4 % (11.5-14.5); White Blood Cell Count 4.5 10^3/uL (4.8-10.8)
[2023-06-09 05:12] LABS: Fibrinogen 196 MG/DL (199-459)
[2023-06-09 05:21] LABS: ALT (SGPT) 113 U/L (0-50); AST (SGOT) 42 U/L (17-59); Albumin 3.5 g/dl (3.5-5.0); Alkaline Phosphatase 41 U/L (38-126); Blood Urea Nitrogen 25 mg/dl (9-20); Carbon Dioxide 31 mmol/L (22-30); Chloride 99 mmol/L (98-107); Estimated Creatinine Clearance > 125 ml/min; Glucose 117 mg/dl (70-99); Magnesium 2.7 mg/dl (1.6-2.3); Potassium 5.2 mmol/L (3.5-5.1); Sodium 133 mmol/L (135-145); Total Bilirubin 1.3 mg/dl (0.2-1.3); Total Protein 4.9 g/dl (6.3-8.2); eGFR > 60.00
[2023-06-09 07:31] VITALS: BP 135/75
[2023-06-09 07:44] LABS: Glucose - Point of Care 97 mg/dl (70-99)
[2023-06-09] MEDS: NOVOLOG FLEXPEN-LOW RESISTANCE SC ×2 (08:11→17:09)
--- NOTE | 2023-06-09 08:32 | W.PN.NEURO.1 ---
Addendum entered and electronically signed by Yamil Bueno MD 06/09/23 10:39:
I saw and evaluated the patient I reviewed the note by Izzy Subramanian agree with the findings of the following comments:
52-year-old male presenting the hospital with gait dysfunction and right leg weakness found to have abnormal MRI of the brain and spine, presentation and imaging and spinal tap consistent with transverse myelitis. No acute events overnight and
patient does feel like his symptoms are improving still with some abnormal gait and very mild right leg weakness. Double vision on leftward gaze has resolved. He has tolerated plasmapheresis 2 sessions so far.
Neurologic examination shows improving mild right leg hip flexion weakness 4+/5. Gait is improving although still little bit abnormal with some right leg weakness apparent, he is able to walk independently but is careful with a little bit of
wide-base.
Testing for neuromyelitis optica as well as Moghadam have been negative, antibodies for aqua porin 4 for as well as Mo Sotero antibody are negative.
Assessment: This is most likely multiple sclerosis with negative antibody testing for MOGAD and neuromyelitis optica. He had significantly disabling right leg weakness and abnormal gait that led to treatment with plasmapheresis which he is
tolerating well with some thrombocytopenia and low fibrinogen noted, gait and weakness do seem to be improving.
Recommendations
-Continued the discussion and education on different medications for long-term immunomodulatory treatment for multiple sclerosis, we will aim to have a plan in place for which medication they will pursue in the outpatient setting by time of
discharge, and will probably obtain necessary serum testing before discharge for the chosen medication
-Continue plasmapheresis he is planned for treatment #3 today, anticipate a total of 5 sessions
-Will continue to wean prednisone, 30 mg for 2 days and then 10 mg for 2 days and then off
-Continue gabapentin 400 mg nightly for sleep, would not necessarily need this long-term as his insomnia was probably largely due to the high-dose IV steroids use previously
-Physical therapy occupational therapy evaluations appreciated, mobilization as able
-P.o. vitamin D replacement as well as vitamin B12
We will follow
Original Note:
Today's Communication / Plan
-
.
Neuro Assessment/Plan
Assessment
This is a 52-year-old male who presented to on 05/31/23 with report of abrupt onset RLE weakness and three falls at home starting on 05/28/23. Earlier this month starting on 05/06/23, patient experienced flu-like symptoms and dizziness and completed
Cedfdinir and steroids for treatment of otitis media and sinusitis.
-CT head 05/18/23: No acute intracranial abnormality. Paranasal sinus mucosal disease/sinusitis.
-Lumbar Spine MRI 05/31/23: Minimal degenerative disk and joint disease in the lumbar spine. No mass, fluid collection or abnormal enhancement on postcontrast imaging. Mild central canal stenosis at L4-5.
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 Differential includes the possibility of an infection, inflammation, spinal cord infarction or demyelinating process such as multiple
sclerosis and/or Lyme disease. Neoplasm much less likely however is included in the differential. No adjacent abnormal enhancement in the paraspinal soft tissues. Follow-up with contrast-enhanced brain and cervical spine MRI imaging is recommended
for complete evaluation. Small focal central disk herniation at T7-8 causing mild cord compression. No myelopathy at this level. 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 1 cm nodule in the right adrenal gland most consistent
with an adenoma.
-CSF 05/31/23: WBC 10, glucose 72, protein 123. +Oligoclonal bands.
-MRI brain 06/01/23: Mild signal alteration in the bilateral cerebral white matter, right middle cerebellar peduncle, and upper cervical spinal cord. These findings would be considered most suspicious for demyelination given the clinical concern for
multiple sclerosis. Postcontrast enhancement of the lesion in the upper cervical spinal cord suggesting active demyelination.
-Send out tests for NMO/MOG antibodies are negative.
I. Positive bands consistent with demyelinating disease, multiple sclerosis. Likely flare of new demyelinating disease. Testing for NMO/MOG antibodies is negative.
Plan
-PLEX initiated, complicated by thrombocytopenia and low fibrinogen. Today (06/09/23) will be day 3/5.
-Completed 5 days of IV methylprednisone.
-Continue oral prednisone taper as ordered.
-Continue gabapentin 400mg HS for sleep.
-Bladder scan/straight cath protocol
-PT/OT evaluations
-DVT prophylaxis
-Cyanocobalamin replacement for B12 level <400.
-Continue vitamin D3 replacement.
-Patient and his family are reviewing MS disease modifying treatment options. Plan to select a treatment prior to discharge so our office can initiate the process.
Patient will need to eventually follow-up with Neurology as an outpatient in about 4 weeks, may see the [facility] or one of the physicians. Also provided patient with contact info for [facility] to see an MS specialists as an outpatient, has an
appointment scheduled this month.
Subjective/Objective
Subjective Data
Date of Service: June 09, 2023
No acute events overnight. Patient reports that his walking/RLE strength feels somewhat improved with the rolling walker, still has mild light-headedness with ambulation and tingling in bilateral fingers. He denies any headache, vision changes,
speech/swallow difficulty, nausea, chest pain, palpitations, and shortness of breath.
Objective Data
Vital Signs
Temp Pulse Resp BP Pulse Ox
97.7 F 76 16 135/75 98
06/09/23 07:31 06/09/23 07:31 06/09/23 07:31 06/09/23 07:31 06/09/23 07:31
Lab Results
06/09/23 04:24
06/09/23 04:24
PT 14.5 Sec (11.4-14.6) 06/05/23 12:12
INR 1.15 06/05/23 12:12
APTT 21.9 Sec (23.4-35.0) L 06/05/23 12:12
Sodium 133 mmol/L (135-145) L 06/09/23 04:24
Potassium 5.2 mmol/L (3.5-5.1) H 06/09/23 04:24
BUN 25 mg/dl (9-20) H 06/09/23 04:24
Glucose 117 mg/dl (70-99) H 06/09/23 04:24
Calcium 9.0 mg/dl (8.4-10.2) 06/09/23 04:24
Whole Bld Vitamin B1 157 nmol/L (70-180) 05/31/23 09:03
Vitamin B12 387 pg/ml (239-931) 05/31/23 09:03
Patient Allergies
No Known Allergies Allergy (Unverified 05/18/23 16:12)
Review of Systems
-
History Source: Patient
EENT: Negative Blurry Vision, Eye Pain, Decreased Vision or Swallowing Difficulty
Respiratory: Negative Cough or Trouble Breathing
Cardiac: Negative Chest Pain or Palpitations
Abdomen/GI: Negative Nausea or Constipated
Genitourinary: Frequency; Negative Difficulty Voiding
Neuro: Dizzy, Weakness (RLE), Numbness (tingling bilateral hands) and Ataxia (gait dysfunction RLE); Negative Headache, Tremors or Speech Problem
Physical Exam
-
General: Well Developed, Well Nourished and No Apparent Distress
Eyes: No Ptosis and PERRLA
HEENT: Normocephalic and Atraumatic
Neck: Full Range of Motion
Respiratory: No Dyspnea
GI: Non-distended
Extremities: No Clubbing, No Cyanosis and No Edema
Psych: Unremarkable
Extended Neurological Exam
Mood & Affect: Mood Unremarkable and Affect Unremarkable
Attention Span & Concentration: Awake, Alert, Interactive and No Difficulty with 2 Step Request
Memory: Unremarkable (AAOx3) and Able to Recall
Tremor: Hand Tremor Absent and Head Tremor Absent
Involuntary Movement: None
Speech: Quality Unremarkable, Quantity Unremarkable and Rate of Production Unremarkable
Cranial Nerve II: Left Eye: Pupillary Reactivity Unremarkable, Pupillary Size Unremarkable and Visual Rivers Intact
Cranial Nerve II: Right Eye: Pupillary Reactivity Unremarkable, Pupillary Size Unremarkable and Visual Rivers Intact
Cranial Nerves III, IV, : Extraocular Movement: Extraocular Movement Full in all Directions
Cranial Nerve V: Facial Sensation: Intact to Light Touch
Cranial Nerve VII: Facial Symmetry: Normal Facial Symmetry
Cranial Nerve VIII: Hearing: Unremarkable Hearing to Normal Conversational Volume
Cranial Nerves IX, X: Palate Movement: Palate Elevation Symmetric
Cranial Nerve XI: Shoulder Shrug: Unremarkable
Cranial Nerve XII: Tongue Protusion: Midline
Muscle Strength, Overall: Reduced on Right (RLE hip flexion 4/5, R dorsi/plantarflexion 5-/5)
Muscle Bulk & Tone: Bulk Unremarkable and Tone Unremarkable
Pronator Drift: No Drift in Upper Extremities and Drift in Right Lower Extremity
Deep Tendon Reflexes: Clonus (R ankle 1 beat of clonus)
Cold Sensation: Unremarkable
Vibration Sensation: Unremarkable
Touch Sensation: Unremarkable
Coordination: [id number] Testing Unremarkable
Babinski Sign: Absent Bilaterally
Data Reviewed
-
Medical Test Reports: Report Reviewed (MOG/NMO)
Labs: Report Reviewed
Reviewed with: Physician, Patient and Family
Medications
-
Active Medications
Generic Name Dose Route Start Last Admin
Trade Name Freq PRN Reason Stop Dose Admin
Acetaminophen 650 mg 06/02/23 13:04 06/06/23 10:54
Acetaminophen 325 Mg Tablet PO 06/30/23 13:03 650 mg
Q6HPRN PRN Administration
mild pain/ fever>100.5F
Amlodipine Besylate 5 mg 06/03/23 14:00 06/08/23 09:44
Amlodipine 5 Mg Tablet PO 07/01/23 13:59 5 mg
DAILY YOHANA Administration
Cholecalciferol 25 mcg 06/01/23 08:00 06/08/23 09:43
Cholecalciferol (Vitamin D3) 25 Mcg Tablet (1,000 Units) PO 06/29/23 07:59 25 mcg
DAILY YOHANA Administration
Cyanocobalamin 1,000 mcg 06/01/23 10:00 06/08/23 09:44
Cyanocobalamin 1,000 Mcg Tablet PO 06/29/23 09:59 1,000 mcg
DAILY YOHANA Administration
Dextrose 12.5 grams 06/01/23 22:00
Dextrose 50% (0.5 Grams/Ml) 50 Ml Syringe IV 06/29/23 21:59
[id number] PRN
hypoglycemia
Protocol
Enoxaparin Sodium 40 mg 05/31/23 18:00 06/08/23 17:05
Enoxaparin Sodium 40 Mg/0.4 Ml Syringe SC 06/28/23 17:59 40 mg
QPM YOHANA Administration
Gabapentin 400 mg 06/05/23 22:00 06/08/23 22:14
Gabapentin 400 Mg Capsule PO 07/03/23 21:59 400 mg
HS YOHANA Administration
Glucagon 1 mg 06/01/23 22:00
Glucagon 1 Mg Vial IM 06/29/23 21:59
PRN PRN
hypoglycemia - no IV access
Protocol
Hydralazine HCl 10 mg 06/04/23 11:42 06/06/23 19:21
Hydralazine 20 Mg/Ml Vial IV 06/30/23 09:49 10 mg
Q4HPRN PRN Administration
SBP>150
Albumin Human 12.5 grams in 250 mls @ 2,125 mls/hr 06/09/23 08:00
Albumin 5% INTRACATH
.Q8M YOHANA
Insulin Aspart 0 units 06/02/23 07:30 06/09/23 08:11
Insulin Aspart Low Resistance 300 Units/3 Ml Pen.Injctr SC 06/30/23 07:29 Not Given
AC YOHANA
Protocol
Melatonin 3 mg 06/05/23 20:00 06/07/23 23:57
Melatonin 3 Mg Tablet PO 07/03/23 19:59 3 mg
HSPRN PRN Administration
insomnia
Pantoprazole Sodium 40 mg 06/01/23 10:00 06/08/23 09:44
Pantoprazole 40 Mg Delayed Release Tablet PO 06/29/23 09:59 40 mg
DAILY YOHANA Administration
Prednisone 30 mg 06/09/23 08:00
Prednisone 10 Mg Tablet PO 06/12/23 08:01
DAILY YOHANA
Sodium Chloride 0 flush 05/31/23 16:00 06/05/23 08:09
Sodium Chloride 0.9% (Flush) Syringe IV 06/28/23 15:59 2 flush
PER PROTOCOL YOHANA Administration
Home Medications
�Medication �Instructions �Recorded
cholecalciferol (vitamin D3) 25 25 mcg PO DAILY Supplement 05/31/23
mcg (1,000 unit) chewable tablet
(Vitamin D3)
multivitamin with minerals-folic 1 tab PO DAILY Supplement 05/31/23
acid 80 mcg chewable tablet
--- NOTE | 2023-06-09 09:00 | W.PN.ONC ---
Today's Communication / Plan
-
Continue PLEX QOD x 5. S/P Tx x 2.
For Tx # 3 on today
Replacement fluid being changed from 100% 5% Albumin to 50/50 FFP & Albumin for assistance of hypofibrinogenemia.
Thrombocytopenia is common w/ PLEX. Will update CBC after treatment and monitor labs and for any bleeding.
Monitor labs daily, CBC, CMP, calcium, Mag, fibrinogen
Impression
Impression
weakness, secondary to suspected demyelinating process - transverse myelitis, MS, NMO, etc; limited improvement on high dose steroids
Subjective/Objective
Subjective/Objective
Continues to complain of right leg weakness as his most prominent symptom. No active bleeding or bruising.
Vital Signs:
Vital Signs
Temp Pulse Resp BP Pulse Ox
97.7 F 76 16 135/75 98
06/09/23 07:31 06/09/23 07:31 06/09/23 07:31 06/09/23 07:31 06/09/23 07:31
PE: Unchanged
Lab Results:
Laboratory Data
WBC 4.5 10^3/uL (4.8-10.8) L 06/09/23 04:24
Hgb 14.7 g/dL (13.0-18.0) 06/09/23 04:24
Plt Count 71 10^3/uL (130-400) L 06/09/23 04:24
PT 14.5 Sec (11.4-14.6) 06/05/23 12:12
INR 1.15 06/05/23 12:12
APTT 21.9 Sec (23.4-35.0) L 06/05/23 12:12
eGFR > 60.00 06/09/23 04:24
[2023-06-09] MEDS: VITAMIN B-12 1000 MCG PO (09:23)
[2023-06-09] MEDS: NORVASC 5 MG PO (09:23)
[2023-06-09] MEDS: PROTONIX 40 MG PO (09:23)
[2023-06-09] MEDS: VITAMIN D3 (cholecalciferol) 25 MCG PO (09:24)
[2023-06-09] MEDS: DELTASONE 30 MG PO (09:24)
[2023-06-09] MEDS: CALCIUM GLUCONATE 10% INJECTION 292 MG IV (09:37)
--- NOTE | 2023-06-09 09:48 | W.PN.HOSP.TC ---
Addendum entered and electronically signed by Ravi Jaime MD 06/09/23 13:56:
Patient seen and examined
Discussed with resident.
Impression/plan:
52 years old male with no prior medical history who presents with dizziness as well as right lower extremity weakness
Extensive workup including CSF with positive oligoclonal bands, imaging consistent with demyelinating process.
Completed 5-day course of IV Solu-Medrol with no significant improvement of the right lower extremity weakness
Has been transitioned to oral steroids with prednisone with plan of taper over next 10 days
Initiated on plasmapheresis with plan for 5 sessions every other day. Monitor CBC/BMP closely. Replete fibrinogen and platelets.
B12 initiated by neurology
Continue gabapentin as per neurology.
Outpatient neurology follow-up with consideration of disease modifying treatment options.
Follow CBC/BMP post plasmapheresis
Original Note:
Today's Communication/Plan
-
Plasmapheresis today
Prednisone taper
Assessment / Plan
Assessment / Plan
IMPRESSION: 52-year-old with no significant medical history presents with dizziness and right lower extremity weakness. Possible etiologies include multiple sclerosis, transverse myelitis, stroke
#Abrupt onset of right lower extremity weakness
Extensive workup including CSF positive oligoclonal bands, consistent with demyelinating process
Completed Solu-Medrol 1g, transition to oral steroids prednisone taper for total of 7 days
Discussed with neurology. Started on plasmapheresis 06/04. (04/11). Next 06/08
Oncology on board. Monitor daily labs, CBC, CMP, calcium, mag, fibrinogen
Replete fibrinogen and platelets
Continue Protonix for GI prophylaxis
PT/OT
Continue gabapentin and B12 supplementation
Acute rehabilitation following hospitalization
#Thrombocytopenia
Oncology input appreciated. Thrombocytopenia common with PLEX.
Patient signed consent form
Update CBC, monitor labs
# Hyperglycemia
Most likely increase is from steroid use.
A1c 4.7 06/01/2023
On SSI, monitor glucose level
# Hypertension primary
Start Amlodipine for BP
Hydralazine as needed for greater than 150 systolic
Adrenal adenoma
Follow-up as outpatient
Monitor
DVT prophylaxis-Lovenox
Anticipated Discharge: > 48 hours
Objective Data
-
Labs:
Laboratory Results
06/09/23
04:24
WBC 4.5 L
Hgb 14.7
Hct 40.7
Plt Count 71 L
Sodium 133 L
Potassium 5.2 H
Chloride 99
Carbon Dioxide 31 H
BUN 25 H
Creatinine 0.7
Glucose 117 H
Calcium 9.0
Total Bilirubin 1.3
AST 42
ALT 113 H
Alkaline Phosphatase 41
Vital Signs:
Vital Signs
Temp Pulse Resp BP Pulse Ox
97.7 F 76 16 135/75 98
06/09/23 07:31 06/09/23 09:23 06/09/23 07:31 06/09/23 09:23 06/09/23 07:31
I&O
06/08/23 06/09/23 06/10/23
06:59 06:59 06:59
Intake Total 1758 / 1758 2460 / 2460
Balance 1758 / 1758 2460 / 2460
Review of Systems
-
All other systems: Reviewed and negative (Except as documented)
Physical Exam
-
General: Well Developed
HEENT: Normocephalic
Respiratory: Clear to Auscultation; Negative Wheezes, Rales or Rhonchi
Cardiac: Regular Rhythm and S1/S2
GI: Soft, Nontender, Nondistended and Normal Bowel Sounds
Musculoskeletal: No Clubbing, No Cyanosis and No Edema
Neuro: Awake, Alert, Oriented and AO x 3
Psych: Calm
Data Reviewed
-
Labs: Labs Reviewed by me and Discussed with Physician
[2023-06-09 12:07] LABS: Glucose - Point of Care 201 mg/dl (70-99)
[2023-06-09] MEDS: NOVOLOG FLEXPEN-LOW RESISTANCE 2 UNITS SC (13:00)
--- NOTE | 2023-06-09 14:06 | CM ---
Reviewed the chart notes. Plan is for PLEX QOD x 5 treatments. Patient received 3rd dose today. CM continues to be available to patient/family and is monitoring medical plan for needs at discharge.
Plan: Discharge to [facility] once PLEX treatments completed. Auth will be needed.
[2023-06-09 15:08] VITALS: BP 164/89
[2023-06-09 16:53] LABS: Glucose - Point of Care 148 mg/dl (70-99)
[2023-06-09] MEDS: LOVENOX 40 MG SC (17:56)
[2023-06-09] MEDS: APRESOLINE 10 MG IV (18:41)
--- NOTE | 2023-06-09 19:04 | PTCARENOTE ---
prn hydralazine given for sbp > 150 per parameters. See MAR for proper documentation.
[2023-06-09 19:30] VITALS: BP 128/74
[2023-06-09] MEDS: NEURONTIN 400 MG PO (21:30)
[2023-06-09 21:45] LABS: Glucose - Point of Care 180 mg/dl (70-99)
[2023-06-09 23:18] VITALS: BP 133/78
[2023-06-10 06:23] LABS: % Basophils 0.2 % (0-2); % Eosinophils 1.2 % (0-6); % Immature Granulocytes 3.7 % (0-0.5); % Lymphocytes 16.9 % (20.5-51.1); % Monocytes 8.6 % (1.7-9.3); % Neutrophils 69.4 % (42.2-75.2); Absolute Eosinophils 0.1 10^3/uL (0-0.7); Absolute Immature Granulocytes 0.2 10^3/uL (0-0.05); Absolute Lymphocytes 0.8 10^3/uL (1.2-3.4); Absolute Monocytes 0.4 10^3/uL (0.1-0.6); Absolute Neutrophils 3.4 10^3/uL (1.4-6.5); Hematocrit 41.8 % (39.0-52.0); Hemoglobin 15.1 g/dL (13.0-18.0); Mean Corp Hgb Conc. 36.1 g/dL (33.0-37.0); Mean Corpuscular Hgb 30.6 pg (27.0-31.0); Mean Corpuscular Volume 84.8 fL (80.0-94.0); Mean Platelet Volume 10.1 fL (7.4-10.4); Nucleated Red Blood Cells % 0 % (-); Platelet Count 74 10^3/uL (130-400); Red Blood Cell Count 4.93 10^6/uL (4.70-6.10); Red Cell Dist. Width 13.6 % (11.5-14.5); White Blood Cell Count 4.9 10^3/uL (4.8-10.8)
[2023-06-10 06:25] LABS: Fibrinogen 191 MG/DL (199-459)
[2023-06-10 06:52] LABS: ALT (SGPT) 101 U/L (0-50); AST (SGOT) 43 U/L (17-59); Albumin 3.7 g/dl (3.5-5.0); Alkaline Phosphatase 55 U/L (38-126); Calcium 9.1 mg/dl (8.4-10.2); Carbon Dioxide 30 mmol/L (22-30); Chloride 100 mmol/L (98-107); Estimated Creatinine Clearance > 125 ml/min; Glucose 96 mg/dl (70-99); Magnesium 2.3 mg/dl (1.6-2.3); Potassium 4.6 mmol/L (3.5-5.1); Sodium 133 mmol/L (135-145); Total Bilirubin 1.5 mg/dl (0.2-1.3); Total Protein 5.3 g/dl (6.3-8.2); eGFR > 60.00
[2023-06-10 07:02] LABS: Blood Urea Nitrogen 24 mg/dl (9-20)
[2023-06-10 07:30] VITALS: BP 113/74
[2023-06-10 07:44] LABS: Glucose - Point of Care 93 mg/dl (70-99)
--- NOTE | 2023-06-10 08:05 | W.PN.NEURO.1 ---
Addendum entered and electronically signed by Yamil Bueno MD 06/10/23 12:39:
I saw and evaluated the patient I reviewed the note by Izzy Subramanian agree with the findings the following comments:
52-year-old man presenting with right leg weakness and difficulty with ambulation evolving over the past couple of weeks before presenting. Workup has been most consistent with transverse myelitis due to multiple sclerosis. He does feel like right
leg strength and walking though not normal. He has tolerated 3 sessions of plasmapheresis with some mild thrombocytopenia, no bleeding issues. He is feeling good today.
Neurologic examination shows 4+/5 hip flexion, gait is abnormal but improved.
Overall review of the CSF, brain and spine imaging, multiple sclerosis is the most likely diagnosis and does meet Finch criteria based on 1 clinical attack, dissemination in time on brain MRI due to chronic lesions on the brain as well as new
enhancing lesion of the spine MRI, as well as dissemination in time with CSF evidence of oligoclonal bands.
-Neuromyelitis optica and motor sade antibodies are negative
Recommendations
-Continue plasmapheresis for total of 5 sessions to help with weakness and disability is much as possible
-Will continue weaning off of steroids to 10 mg for Tuesday and Tuesday and then off completely
-Will draw labs for hepatitis B C and serum immunoglobulins as the patient after conversation with myself and Dr. Tovar and his family, has decided to pursue Ofatumumab/Kesimpta for immune therapy for multiple sclerosis, we will help get process
started and he will start this as an outpatient
-Continue mobilization, recommended for outpatient physical therapy after discharge
Will continue to follow
Original Note:
Today's Communication / Plan
-
.
Neuro Assessment/Plan
Assessment
This is a 52-year-old male who presented to on 05/31/23 with report of abrupt onset RLE weakness and three falls at home starting on 05/28/23. Earlier this month starting on 05/06/23, patient experienced flu-like symptoms and dizziness and completed
Cedfdinir and steroids for treatment of otitis media and sinusitis.
-CT head 05/18/23: No acute intracranial abnormality. Paranasal sinus mucosal disease/sinusitis.
-Lumbar Spine MRI 05/31/23: Minimal degenerative disk and joint disease in the lumbar spine. No mass, fluid collection or abnormal enhancement on postcontrast imaging. Mild central canal stenosis at L4-5.
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 Differential includes the possibility of an infection, inflammation, spinal cord infarction or demyelinating process such as multiple
sclerosis and/or Lyme disease. Neoplasm much less likely however is included in the differential. No adjacent abnormal enhancement in the paraspinal soft tissues. Follow-up with contrast-enhanced brain and cervical spine MRI imaging is recommended
for complete evaluation. Small focal central disk herniation at T7-8 causing mild cord compression. No myelopathy at this level. 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 1 cm nodule in the right adrenal gland most consistent
with an adenoma.
-CSF 05/31/23: WBC 10, glucose 72, protein 123. +Oligoclonal bands.
-MRI brain 06/01/23: Mild signal alteration in the bilateral cerebral white matter, right middle cerebellar peduncle, and upper cervical spinal cord. These findings would be considered most suspicious for demyelination given the clinical concern for
multiple sclerosis. Postcontrast enhancement of the lesion in the upper cervical spinal cord suggesting active demyelination.
-Send out tests for NMO/MOG antibodies are negative.
I. Positive bands consistent with demyelinating disease, multiple sclerosis. Likely flare of new demyelinating disease. Testing for NMO/MOG antibodies is negative.
Plan
-PLEX initiated, complicated by thrombocytopenia and low fibrinogen. Tomorrow (06/11/23) will be day 4/5.
-Completed 5 days of IV methylprednisone.
-Continue oral prednisone taper as ordered.
-Continue gabapentin 400mg HS for sleep.
-Bladder scan/straight cath protocol
-PT/OT evaluations
-DVT prophylaxis
-Cyanocobalamin replacement for B12 level <400.
-Continue vitamin D3 replacement.
-Patient and his mom have selected [facility] as his DMT, will initiate this process with our office.
Patient will need to eventually follow-up with Neurology as an outpatient in about 4 weeks, may see the [facility] or one of the physicians. Also provided patient with contact info for [facility] to see an MS specialists as an outpatient, has an
appointment scheduled this month.
Subjective/Objective
Subjective Data
Date of Service: June 10, 2023
No acute events overnight. Patient reports feeling good today, his gait feels slightly more steady. Still with ongoing RLE weakness and bilateral finger tingling. He denies any headache, dizziness, vision changes, speech/swallow difficulty, nausea,
chest pain, palpitations, and shortness of breath.
Objective Data
Vital Signs
Temp Pulse Resp BP Pulse Ox
97.6 F 83 14 113/74 97
06/10/23 07:30 06/10/23 07:30 06/10/23 07:30 06/10/23 07:30 06/10/23 07:30
Lab Results
06/10/23 05:46
06/10/23 05:46
PT 14.5 Sec (11.4-14.6) 06/05/23 12:12
INR 1.15 06/05/23 12:12
APTT 21.9 Sec (23.4-35.0) L 06/05/23 12:12
Sodium 133 mmol/L (135-145) L 06/10/23 05:46
Potassium 4.6 mmol/L (3.5-5.1) 06/10/23 05:46
BUN 24 mg/dl (9-20) H 06/10/23 05:46
Glucose 96 mg/dl (70-99) 06/10/23 05:46
Calcium 9.1 mg/dl (8.4-10.2) 06/10/23 05:46
Whole Bld Vitamin B1 157 nmol/L (70-180) 05/31/23 09:03
Vitamin B12 387 pg/ml (921-971) 05/31/23 09:03
Patient Allergies
No Known Allergies Allergy (Unverified 05/18/23 16:12)
Review of Systems
-
History Source: Patient
EENT: Negative Blurry Vision, Decreased Vision or Swallowing Difficulty
Respiratory: Negative Cough or Trouble Breathing
Cardiac: Negative Chest Pain or Palpitations
Abdomen/GI: Negative Nausea or Constipated
Genitourinary: Negative Incontinence or Difficulty Voiding
Neuro: Weakness (RLE), Numbness (bilateral fingers) and Ataxia; Negative Dizzy, Headache, Tremors or Speech Problem
Physical Exam
-
General: Well Developed, Well Nourished and No Apparent Distress
Eyes: No Ptosis and PERRLA
HEENT: Normocephalic and Atraumatic
Neck: Full Range of Motion
Respiratory: No Dyspnea
GI: Non-distended
Extremities: No Clubbing, No Cyanosis and No Edema
Psych: Unremarkable
Extended Neurological Exam
Mood & Affect: Mood Unremarkable and Affect Unremarkable
Attention Span & Concentration: Awake, Alert, Interactive and No Difficulty with 2 Step Request
Memory: Unremarkable (AAOx3) and Able to Recall
Tremor: Hand Tremor Absent and Head Tremor Absent
Involuntary Movement: None
Speech: Quality Unremarkable, Quantity Unremarkable and Rate of Production Unremarkable
Cranial Nerve II: Left Eye: Pupillary Reactivity Unremarkable, Pupillary Size Unremarkable and Visual Rivers Intact
Cranial Nerve II: Right Eye: Pupillary Reactivity Unremarkable, Pupillary Size Unremarkable and Visual Rivers Intact
Cranial Nerves III, IV, : Extraocular Movement: Extraocular Movement Full in all Directions
Cranial Nerve VII: Facial Symmetry: Normal Facial Symmetry
Cranial Nerve VIII: Hearing: Unremarkable Hearing to Normal Conversational Volume
Cranial Nerves IX, X: Palate Movement: Palate Elevation Symmetric
Cranial Nerve XI: Shoulder Shrug: Unremarkable
Cranial Nerve XII: Tongue Protusion: Midline
Muscle Strength, Overall: Reduced on Right (RLE hip flexion/ext 4/5)
Muscle Bulk & Tone: Bulk Unremarkable and Tone Unremarkable
Pronator Drift: No Drift in Upper Extremities and No Drift in Lower Extremities
Coordination: Plmjwn-yibi-[id number] Testing Unremarkable
Gait & Station: Other (gait unsteady)
Data Reviewed
-
Labs: Report Reviewed
Reviewed with: Physician and Patient
Medications
-
Active Medications
Generic Name Dose Route Start Last Admin
Trade Name Freq PRN Reason Stop Dose Admin
Acetaminophen 650 mg 06/02/23 13:04 06/06/23 10:54
Acetaminophen 325 Mg Tablet PO 06/30/23 13:03 650 mg
Q6HPRN PRN Administration
mild pain/ fever>100.5F
Amlodipine Besylate 5 mg 06/03/23 14:00 06/10/23 08:32
Amlodipine 5 Mg Tablet PO 07/01/23 13:59 5 mg
DAILY YOHANA Administration
Cholecalciferol 25 mcg 06/01/23 08:00 06/10/23 08:31
Cholecalciferol (Vitamin D3) 25 Mcg Tablet (1,000 Units) PO 06/29/23 07:59 25 mcg
DAILY YOHANA Administration
Cyanocobalamin 1,000 mcg 06/01/23 10:00 06/10/23 08:31
Cyanocobalamin 1,000 Mcg Tablet PO 06/29/23 09:59 1,000 mcg
DAILY YOHANA Administration
Dextrose 12.5 grams 06/01/23 22:00
Dextrose 50% (0.5 Grams/Ml) 50 Ml Syringe IV 06/29/23 21:59
[id number] PRN
hypoglycemia
Protocol
Enoxaparin Sodium 40 mg 05/31/23 18:00 06/09/23 17:56
Enoxaparin Sodium 40 Mg/0.4 Ml Syringe SC 06/28/23 17:59 40 mg
QPM YOHANA Administration
Gabapentin 400 mg 06/05/23 22:00 06/09/23 21:30
Gabapentin 400 Mg Capsule PO 07/03/23 21:59 400 mg
HS YOHANA Administration
Glucagon 1 mg 06/01/23 22:00
Glucagon 1 Mg Vial IM 06/29/23 21:59
PRN PRN
hypoglycemia - no IV access
Protocol
Hydralazine HCl 10 mg 06/04/23 11:42 06/09/23 18:41
Hydralazine 20 Mg/Ml Vial IV 06/30/23 09:49 10 mg
Q4HPRN PRN Administration
SBP>150
Albumin Human 12.5 grams in 250 mls @ 2,125 mls/hr 06/09/23 08:00
Albumin 5% INTRACATH
.Q8M YOHANA
Insulin Aspart 0 units 06/02/23 07:30 06/10/23 08:29
Insulin Aspart Low Resistance 300 Units/3 Ml Pen.Injctr SC 06/30/23 07:29 Not Given
AC YOHANA
Protocol
Melatonin 3 mg 06/05/23 20:00 06/07/23 23:57
Melatonin 3 Mg Tablet PO 07/03/23 19:59 3 mg
HSPRN PRN Administration
insomnia
Pantoprazole Sodium 40 mg 06/01/23 10:00 06/10/23 08:31
Pantoprazole 40 Mg Delayed Release Tablet PO 06/29/23 09:59 40 mg
DAILY YOHANA Administration
Prednisone 10 mg 06/11/23 08:00
Prednisone 10 Mg Tablet PO 06/12/23 08:01
DAILY YOHANA
Sodium Chloride 0 flush 05/31/23 16:00 06/05/23 08:09
Sodium Chloride 0.9% (Flush) Syringe IV 06/28/23 15:59 2 flush
PER PROTOCOL YOHANA Administration
Home Medications
�Medication �Instructions �Recorded
cholecalciferol (vitamin D3) 25 25 mcg PO DAILY Supplement 05/31/23
mcg (1,000 unit) chewable tablet
(Vitamin D3)
multivitamin with minerals-folic 1 tab PO DAILY Supplement 05/31/23
acid 80 mcg chewable tablet
[2023-06-10] MEDS: NOVOLOG FLEXPEN-LOW RESISTANCE SC ×2 (08:29→11:50)
[2023-06-10] MEDS: VITAMIN D3 (cholecalciferol) 25 MCG PO (08:31)
[2023-06-10] MEDS: DELTASONE 30 MG PO (08:31)
[2023-06-10] MEDS: VITAMIN B-12 1000 MCG PO (08:31)
[2023-06-10] MEDS: PROTONIX 40 MG PO (08:31)
[2023-06-10] MEDS: NORVASC 5 MG PO (08:32)
--- NOTE | 2023-06-10 09:00 | W.PN.HOSP.TC ---
Addendum entered and electronically signed by Ravi Jaime MD 06/10/23 13:52:
Patient seen and examined
Discussed with resident.
Impression/plan:
52 years old male with no prior medical history who presents with dizziness as well as right lower extremity weakness
Extensive workup including CSF with positive oligoclonal bands, imaging consistent with demyelinating process.
Completed 5-day course of IV Solu-Medrol with no significant improvement of the right lower extremity weakness
Has been transitioned to oral steroids with prednisone with plan of taper over next 10 days
Initiated on plasmapheresis with plan for 5 sessions every other day. Monitor CBC/BMP closely. Replete fibrinogen and platelets.
B12 initiated by neurology
Continue gabapentin as per neurology.
Outpatient neurology follow-up with consideration of disease modifying treatment options.
Original Note:
Today's Communication/Plan
-
Plasmapheresis 06/10
Monitor CBC
Continue oral steroid taper
Assessment / Plan
Assessment / Plan
IMPRESSION: 52-year-old with no significant medical history presents with dizziness and right lower extremity weakness. Possible etiologies include multiple sclerosis, transverse myelitis, stroke
#Abrupt onset of right lower extremity weakness
Extensive workup including CSF positive oligoclonal bands, consistent with demyelinating process
Completed Solu-Medrol 1g, transition to oral steroids prednisone taper for total of 7 days
Discussed with neurology. Started on plasmapheresis 06/04. (05/09). Next 06/10
Oncology on board. Monitor daily labs, CBC, CMP, calcium, mag, fibrinogen
Replete fibrinogen and platelets
Type and cross
Consent from obtained from patient on 06/08
Continue Protonix for GI prophylaxis
PT/OT
Continue gabapentin and B12 supplementation
Acute rehabilitation following hospitalization
# Hyperglycemia
Most likely increase from steroid use.
A1c 4.7 06/01/2023
On SSI, monitor glucose level
# Hypertension primary
Start Amlodipine for BP
Hydralazine as needed for greater than 150 systolic
Adrenal adenoma
Follow-up as outpatient
Monitor
DVT prophylaxis-Lovenox
Anticipated Discharge: > 48 hours
Objective Data
-
Labs:
Laboratory Results
06/10/23
05:46
WBC 4.9
Hgb 15.1
Hct 41.8
Plt Count 74 L
Sodium 133 L
Potassium 4.6
Chloride 100
Carbon Dioxide 30
BUN 24 H
Creatinine 0.7
Glucose 96
Calcium 9.1
Total Bilirubin 1.5 H
AST 43
ALT 101 H
Alkaline Phosphatase 55
Vital Signs:
Vital Signs
Temp Pulse Resp BP Pulse Ox
97.6 F 83 14 113/74 97
06/10/23 07:30 06/10/23 07:30 06/10/23 07:30 06/10/23 07:30 06/10/23 07:30
I&O
06/09/23 06/10/23 06/11/23
06:59 06:59 06:59
Intake Total 2460 / 2460 1260 / 1260
Balance 2460 / 2460 1260 / 1260
Review of Systems
-
All other systems: Reviewed and negative (Except as documented)
Physical Exam
-
General: Well Developed and Well Nourished
HEENT: Normocephalic
Respiratory: Clear to Auscultation; Negative Wheezes, Rales or Rhonchi
Cardiac: Regular Rhythm and S1/S2
GI: Soft, Nontender, Nondistended and Normal Bowel Sounds
Musculoskeletal: No Clubbing, No Cyanosis and No Edema
Skin: Warm and Dry
Neuro: Awake, Alert, Oriented and AO x 3
Psych: Calm
Data Reviewed
-
Labs: Labs Reviewed by me and Discussed with Physician
[2023-06-10 11:19] VITALS: BP 155/109; PULSE 118
[2023-06-10 11:50] LABS: Glucose - Point of Care 120 mg/dl (70-99)
[2023-06-10] MEDS: TYLENOL 650 MG PO (15:39)
[2023-06-10 15:51] VITALS: BP 144/62
[2023-06-10 17:11] LABS: Glucose - Point of Care 198 mg/dl (70-99)
[2023-06-10] MEDS: LOVENOX 40 MG SC (18:05)
[2023-06-10] MEDS: NOVOLOG FLEXPEN-LOW RESISTANCE 1 UNITS SC (18:05)
[2023-06-10 21:39] LABS: Glucose - Point of Care 146 mg/dl (70-99)
[2023-06-10] MEDS: NEURONTIN 400 MG PO (22:23)
[2023-06-10 23:31] VITALS: BP 144/76
[2023-06-11 07:08] VITALS: BP 144/103
[2023-06-11 08:06] LABS: Glucose - Point of Care 84 mg/dl (70-99)
[2023-06-11] MEDS: DELTASONE 10 MG PO (08:42)
[2023-06-11] MEDS: PROTONIX 40 MG PO (08:42)
[2023-06-11] MEDS: VITAMIN B-12 1000 MCG PO (08:42)
[2023-06-11] MEDS: VITAMIN D3 (cholecalciferol) 25 MCG PO (08:42)
[2023-06-11] MEDS: NORVASC 5 MG PO (08:42)
[2023-06-11] MEDS: NOVOLOG FLEXPEN-LOW RESISTANCE SC ×2 (08:45→12:20)
[2023-06-11 09:19] LABS: % Basophils 0.3 % (0-2); % Immature Granulocytes 2.8 % (0-0.5); % Lymphocytes 16.2 % (20.5-51.1); % Monocytes 7.6 % (1.7-9.3); % Neutrophils 72.1 % (42.2-75.2); Absolute Eosinophils 0.1 10^3/uL (0-0.7); Absolute Immature Granulocytes 0.2 10^3/uL (0-0.05); Absolute Lymphocytes 1.1 10^3/uL (1.2-3.4); Absolute Monocytes 0.5 10^3/uL (0.1-0.6); Hematocrit 47.6 % (39.0-52.0); Hemoglobin 16.5 g/dL (13.0-18.0); Mean Corp Hgb Conc. 34.7 g/dL (33.0-37.0); Mean Corpuscular Hgb 30.2 pg (27.0-31.0); Mean Platelet Volume 10.8 fL (7.4-10.4); Nucleated Red Blood Cells % 0 % (-); Platelet Count 96 10^3/uL (130-400); Red Blood Cell Count 5.47 10^6/uL (4.70-6.10); Red Cell Dist. Width 13.4 % (11.5-14.5); White Blood Cell Count 6.9 10^3/uL (4.8-10.8)
[2023-06-11 09:20] VITALS: BP 152/93; PULSE 103; O2SAT 98
[2023-06-11 09:21] LABS: Fibrinogen 242 MG/DL (199-459)
[2023-06-11 09:34] LABS: ALT (SGPT) 160 U/L (0-50); AST (SGOT) 50 U/L (17-59); Albumin 4.3 g/dl (3.5-5.0); Alkaline Phosphatase 68 U/L (38-126); Blood Urea Nitrogen 22 mg/dl (9-20); Calcium 9.5 mg/dl (8.4-10.2); Carbon Dioxide 31 mmol/L (22-30); Chloride 98 mmol/L (98-107); Estimated Creatinine Clearance > 125 ml/min; Glucose 104 mg/dl (70-99); Magnesium 2.4 mg/dl (1.6-2.3); Potassium 4.2 mmol/L (3.5-5.1); Sodium 137 mmol/L (135-145); Total Bilirubin 1.4 mg/dl (0.2-1.3); eGFR > 60.00
--- NOTE | 2023-06-11 09:37 | W.PN.NEURO.1 ---
Today's Communication / Plan
-
As above
Neuro Assessment/Plan
Assessment
This is a 52-year-old male who presented to on 05/31/23 with report of abrupt onset RLE weakness and three falls at home starting on 05/28/23. Earlier this month starting on 05/06/23, patient experienced flu-like symptoms and dizziness and completed
Cedfdinir and steroids for treatment of otitis media and sinusitis.
-CT head 05/18/23: No acute intracranial abnormality. Paranasal sinus mucosal disease/sinusitis.
-Lumbar Spine MRI 05/31/23: Minimal degenerative disk and joint disease in the lumbar spine. No mass, fluid collection or abnormal enhancement on postcontrast imaging. Mild central canal stenosis at L4-5.
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 Differential includes the possibility of an infection, inflammation, spinal cord infarction or demyelinating process such as multiple
sclerosis and/or Lyme disease. Neoplasm much less likely however is included in the differential. No adjacent abnormal enhancement in the paraspinal soft tissues. Follow-up with contrast-enhanced brain and cervical spine MRI imaging is recommended
for complete evaluation. Small focal central disk herniation at T7-8 causing mild cord compression. No myelopathy at this level. 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 1 cm nodule in the right adrenal gland most consistent
with an adenoma.
-CSF 05/31/23: WBC 10, glucose 72, protein 123. +Oligoclonal bands.
-MRI brain 06/01/23: Mild signal alteration in the bilateral cerebral white matter, right middle cerebellar peduncle, and upper cervical spinal cord. These findings would be considered most suspicious for demyelination given the clinical concern for
multiple sclerosis. Postcontrast enhancement of the lesion in the upper cervical spinal cord suggesting active demyelination.
-Send out tests for NMO/MOG antibodies are negative.
I. Positive bands consistent with demyelinating disease, multiple sclerosis. Likely flare of new demyelinating disease. Testing for NMO/MOG antibodies is negative. Completed 5 days of IV methylprednisone.
Plan
-PLEX initiated, complicated by thrombocytopenia and low fibrinogen. 06/11/23 is day 4/5.
-Continue oral prednisone taper as ordered.
-Continue gabapentin 400mg HS for sleep.
-Bladder scan/straight cath protocol
-PT/OT evaluations
-DVT prophylaxis
-Cyanocobalamin replacement for B12 level <400.
-Continue vitamin D3 replacement.
-Patient and his mom have selected [facility] as his DMT, will initiate this process with our office.
Patient will need to eventually follow-up with Neurology as an outpatient in about 4 weeks, may see the [facility] or one of the physicians. Also provided patient with contact info for [facility] to see an MS specialists as an outpatient, has an
appointment scheduled this month.
Subjective/Objective
Subjective Data
Date of Service: June 11, 2023
No new changes.
Objective Data
Vital Signs
Temp Pulse Resp BP Pulse Ox
36.3 C 83 16 144/103 98
06/11/23 07:08 06/11/23 07:08 06/11/23 07:08 06/11/23 07:08 06/11/23 07:08
Lab Results
06/11/23 08:32
06/11/23 08:32
PT 14.5 Sec (11.4-14.6) 06/05/23 12:12
INR 1.15 06/05/23 12:12
APTT 21.9 Sec (23.4-35.0) L 06/05/23 12:12
Sodium 137 mmol/L (135-145) 06/11/23 08:32
Potassium 4.2 mmol/L (3.5-5.1) 06/11/23 08:32
BUN 22 mg/dl (9-20) H 06/11/23 08:32
Glucose 104 mg/dl (70-99) H 06/11/23 08:32
Calcium 9.5 mg/dl (8.4-10.2) 06/11/23 08:32
Whole Bld Vitamin B1 157 nmol/L (70-180) 05/31/23 09:03
Vitamin B12 387 pg/ml (239-931) 05/31/23 09:03
Patient Allergies
No Known Allergies Allergy (Unverified 05/18/23 16:12)
Review of Systems
-
History Source: Patient
All other systems: Reviewed and negative
EENT: Negative Decreased Vision or Swallowing Difficulty
Respiratory: Negative Trouble Breathing
Cardiac: Negative Chest Pain
Abdomen/GI: Negative Incontinence of Stool
Genitourinary: Negative Incontinence
Musculoskeletal: Negative Back Pain or Neck Pain
Neuro: Negative Dizzy or Headache
Physical Exam
-
General: Well Developed, Well Nourished and No Apparent Distress
Eyes: No Ptosis and PERRLA
HEENT: Normocephalic and Atraumatic
Neck: Full Range of Motion
Respiratory: No Dyspnea
Cardiac: No JVD
GI: Non-distended
Extremities: No Clubbing, No Cyanosis and No Edema
Psych: Unremarkable
Extended Neurological Exam
Mood & Affect: Mood Unremarkable and Affect Unremarkable
Attention Span & Concentration: Awake, Alert and Interactive
Memory: Unremarkable
Tremor: Hand Tremor Absent and Head Tremor Absent
Involuntary Movement: None
Speech: Quality Unremarkable, Quantity Unremarkable and Rate of Production Unremarkable
Cranial Nerve II: Left Eye: Pupillary Size Unremarkable and Visual Rivers Grossly Intact
Cranial Nerve II: Right Eye: Pupillary Size Unremarkable and Visual Rivers Grossly Intact
Cranial Nerves III, IV, : Extraocular Movement: Grossly Intact
Cranial Nerve VII: Facial Symmetry: Normal Facial Symmetry
Cranial Nerve VIII: Hearing: Unremarkable Hearing to Normal Conversational Volume
Cranial Nerve XI: Shoulder Shrug: Unremarkable
Cranial Nerve XII: Tongue Protusion: Midline
Muscle Strength, Overall: Reduced on Right (RLE hip flexion/ext 4/5)
Muscle Bulk & Tone: Bulk Unremarkable and Tone Unremarkable
Pronator Drift: No Drift in Upper Extremities and No Drift in Lower Extremities
Coordination: [id number] Testing Unremarkable
Gait & Station: Other (gait unsteady)
Data Reviewed
-
Labs: Report Reviewed
Reviewed with: Physician and Patient
Old Records: Summarized
Past History
Past History
ED Past Medical History: Other (Multiple sclerosis May 2023)
ED Past Surgical History: None
Social History
Tobacco: Non-smoker
Alcohol: None
Drug: None
Personal: Single
Living: with family
Employment: Employed
Family History
Family History: Other (Reviewed and noncontributory)
Medications
-
Medications:
Generic Name Dose Route Start Last Admin
Trade Name Freq PRN Reason Stop Dose Admin
Acetaminophen 650 mg 06/02/23 13:04 06/10/23 15:39
Acetaminophen 325 Mg Tablet PO 06/30/23 13:03 650 mg
Q6HPRN PRN Administration
mild pain/ fever>100.5F
Amlodipine Besylate 5 mg 06/03/23 14:00 06/11/23 08:42
Amlodipine 5 Mg Tablet PO 07/01/23 13:59 5 mg
DAILY YOHANA Administration
Cholecalciferol 25 mcg 06/01/23 08:00 06/11/23 08:42
Cholecalciferol (Vitamin D3) 25 Mcg Tablet (1,000 Units) PO 06/29/23 07:59 25 mcg
DAILY YOHANA Administration
Cyanocobalamin 1,000 mcg 06/01/23 10:00 06/11/23 08:42
Cyanocobalamin 1,000 Mcg Tablet PO 06/29/23 09:59 1,000 mcg
DAILY YOHANA Administration
Dextrose 12.5 grams 06/01/23 22:00
Dextrose 50% (0.5 Grams/Ml) 50 Ml Syringe IV 06/29/23 21:59
[id number] PRN
hypoglycemia
Protocol
Enoxaparin Sodium 40 mg 05/31/23 18:00 06/10/23 18:05
Enoxaparin Sodium 40 Mg/0.4 Ml Syringe SC 06/28/23 17:59 40 mg
QPM YOHANA Administration
Gabapentin 400 mg 06/05/23 22:00 06/10/23 22:23
Gabapentin 400 Mg Capsule PO 07/03/23 21:59 400 mg
HS YOHANA Administration
Glucagon 1 mg 06/01/23 22:00
Glucagon 1 Mg Vial IM 06/29/23 21:59
PRN PRN
hypoglycemia - no IV access
Protocol
Hydralazine HCl 10 mg 06/04/23 11:42 06/09/23 18:41
Hydralazine 20 Mg/Ml Vial IV 06/30/23 09:49 10 mg
Q4HPRN PRN Administration
SBP>150
Albumin Human 12.5 grams in 250 mls @ 2,125 mls/hr 06/11/23 08:00
Albumin 5% INTRACATH
.Q8M YOHANA
Insulin Aspart 0 units 06/02/23 07:30 06/11/23 08:45
Insulin Aspart Low Resistance 300 Units/3 Ml Pen.Injctr SC 06/30/23 07:29 Not Given
AC YOHANA
Protocol
Melatonin 3 mg 06/05/23 20:00 06/07/23 23:57
Melatonin 3 Mg Tablet PO 07/03/23 19:59 3 mg
HSPRN PRN Administration
insomnia
Pantoprazole Sodium 40 mg 06/01/23 10:00 06/11/23 08:42
Pantoprazole 40 Mg Delayed Release Tablet PO 06/29/23 09:59 40 mg
DAILY YOHANA Administration
Prednisone 10 mg 06/11/23 08:00 06/11/23 08:42
Prednisone 10 Mg Tablet PO 06/12/23 08:01 10 mg
DAILY YOHANA Administration
Sodium Chloride 0 flush 05/31/23 16:00 06/05/23 08:09
Sodium Chloride 0.9% (Flush) Syringe IV 06/28/23 15:59 2 flush
PER PROTOCOL YOHANA Administration
[2023-06-11 12:18] LABS: Glucose - Point of Care 118 mg/dl (70-99)
--- NOTE | 2023-06-11 14:43 | W.PN.HOSP.TC ---
Today's Communication/Plan
-
Plasma exchange treatment 4/5
Albumin
Steroid taper
Physical therapy
Assessment / Plan
Assessment / Plan
Impression/plan:
52 years old male with no prior medical history who presents with dizziness as well as right lower extremity weakness
Extensive workup including CSF with positive oligoclonal bands, imaging consistent with demyelinating process.
Completed 5-day course of IV Solu-Medrol with no significant improvement of the right lower extremity weakness
Has been transitioned to oral steroids with prednisone with plan of taper over next 10 days
Initiated on plasmapheresis with plan for 5 sessions every other day. Monitor CBC/BMP closely. Replete fibrinogen and platelets.
B12 initiated by neurology
Continue gabapentin as per neurology.
Outpatient neurology follow-up with consideration of disease modifying treatment options.
Anticipated Discharge: > 48 hours
Subjective/Interval History
-
Date of Service: June 11, 2023
Objective Data
-
Labs:
Laboratory Results
06/11/23 06/11/23
08:32 17:00
WBC 6.9 Pending
Hgb 16.5 Pending
Hct 47.6 Pending
Plt Count 96 L D Pending
Sodium 137
Potassium 4.2
Chloride 98
Carbon Dioxide 31 H
BUN 22 H
Creatinine 0.6 L
Glucose 104 H
Calcium 9.5
Total Bilirubin 1.4 H
AST 50
ALT 160 H
Alkaline Phosphatase 68
Vital Signs:
Vital Signs
Temp Pulse Resp BP Pulse Ox
97.4 F 83 16 144/103 98
06/11/23 07:08 06/11/23 07:08 06/11/23 07:08 06/11/23 07:08 06/11/23 07:08
I&O
06/10/23 06/11/23 06/12/23
06:59 06:59 06:59
Intake Total 1260 / 1260 1740 / 1740
Balance 1260 / 1260 1740 / 1740
Physical Exam
-
General: Well Developed and No Apparent Distress
HEENT: Normocephalic, Atraumatic and Moist Mucous Membranes
Respiratory: Clear to Auscultation
Cardiac: Regular Rhythm and S1/S2; Negative Murmur, Rub or Gallop
GI: Soft, Nontender, Nondistended and Normal Bowel Sounds; Negative Organomegaly
Rectal: Deferred by Provider
Musculoskeletal: No Clubbing, No Cyanosis and No Edema
Skin: Negative Rash
Neuro: Nonfocal/Grossly Intact
[2023-06-11 15:16] VITALS: BP 133/88
[2023-06-11 16:53] LABS: % Basophils 0.2 % (0-2); % Eosinophils 0.7 % (0-6); % Lymphocytes 6.1 % (20.5-51.1); % Monocytes 5.8 % (1.7-9.3); % Neutrophils 85.2 % (42.2-75.2); Absolute Eosinophils 0.1 10^3/uL (0-0.7); Absolute Immature Granulocytes 0.2 10^3/uL (0-0.05); Absolute Lymphocytes 0.7 10^3/uL (1.2-3.4); Absolute Monocytes 0.7 10^3/uL (0.1-0.6); Absolute Neutrophils 9.7 10^3/uL (1.4-6.5); Hematocrit 47.5 % (39.0-52.0); Hemoglobin 17.3 g/dL (13.0-18.0); Mean Corp Hgb Conc. 36.4 g/dL (33.0-37.0); Mean Corpuscular Hgb 30.4 pg (27.0-31.0); Mean Corpuscular Volume 83.3 fL (80.0-94.0); Nucleated Red Blood Cells % 0 % (-); Platelet Count 120 10^3/uL (130-400); Red Cell Dist. Width 13.6 % (11.5-14.5); White Blood Cell Count 11.4 10^3/uL (4.8-10.8)
[2023-06-11 17:20] LABS: Glucose - Point of Care 158 mg/dl (70-99)
[2023-06-11] MEDS: LOVENOX 40 MG SC (17:24)
[2023-06-11] MEDS: NOVOLOG FLEXPEN-LOW RESISTANCE 1 UNITS SC (17:24)
--- NOTE | 2023-06-11 18:27 | PTCARENOTE ---
pt had his PLEX treatment today as scheduled. no issues noted with procedure.
[2023-06-11] MEDS: NEURONTIN 400 MG PO (21:20)
[2023-06-11 21:27] LABS: Glucose - Point of Care 126 mg/dl (70-99)
[2023-06-11 23:20] VITALS: BP 148/88
[2023-06-12 08:14] LABS: Glucose - Point of Care 155 mg/dl (70-99)
[2023-06-12 08:16] VITALS: BP 167/99
[2023-06-12 08:53] LABS: Fibrinogen 176 MG/DL (199-459)
[2023-06-12 08:55] LABS: % Basophils 0.2 % (0-2); % Eosinophils 1.5 % (0-6); % Immature Granulocytes 1.7 % (0-0.5); % Monocytes 7.1 % (1.7-9.3); % Neutrophils 72.5 % (42.2-75.2); Absolute Eosinophils 0.1 10^3/uL (0-0.7); Absolute Immature Granulocytes 0.1 10^3/uL (0-0.05); Absolute Lymphocytes 0.9 10^3/uL (1.2-3.4); Absolute Monocytes 0.4 10^3/uL (0.1-0.6); Absolute Neutrophils 3.9 10^3/uL (1.4-6.5); Hematocrit 42.3 % (39.0-52.0); Mean Corp Hgb Conc. 35.5 g/dL (33.0-37.0); Mean Corpuscular Hgb 30.7 pg (27.0-31.0); Mean Corpuscular Volume 86.5 fL (80.0-94.0); Mean Platelet Volume 10.6 fL (7.4-10.4); Nucleated Red Blood Cells % 0 % (-); Platelet Count 85 10^3/uL (130-400); Red Blood Cell Count 4.89 10^6/uL (4.70-6.10); Red Cell Dist. Width 13.6 % (11.5-14.5); White Blood Cell Count 5.4 10^3/uL (4.8-10.8)
--- NOTE | 2023-06-12 09:12 | W.PN.NEURO.1 ---
Today's Communication / Plan
-
PLEX initiated, complicated by thrombocytopenia and low fibrinogen. 06/12/23 is day 5 of 5.
Continue oral prednisone taper as ordered.
Neuro Assessment/Plan
Assessment
This is a 52-year-old male who presented to on 05/31/23 with report of abrupt onset RLE weakness and three falls at home starting on 05/28/23. Earlier this month starting on 05/06/23, patient experienced flu-like symptoms and dizziness and completed
Cedfdinir and steroids for treatment of otitis media and sinusitis.
-CT head 05/18/23: No acute intracranial abnormality. Paranasal sinus mucosal disease/sinusitis.
-Lumbar Spine MRI 05/31/23: Minimal degenerative disk and joint disease in the lumbar spine. No mass, fluid collection or abnormal enhancement on postcontrast imaging. Mild central canal stenosis at L4-5.
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 Differential includes the possibility of an infection, inflammation, spinal cord infarction or demyelinating process such as multiple
sclerosis and/or Lyme disease. Neoplasm much less likely however is included in the differential. No adjacent abnormal enhancement in the paraspinal soft tissues. Follow-up with contrast-enhanced brain and cervical spine MRI imaging is recommended
for complete evaluation. Small focal central disk herniation at T7-8 causing mild cord compression. No myelopathy at this level. 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 1 cm nodule in the right adrenal gland most consistent
with an adenoma.
-CSF 05/31/23: WBC 10, glucose 72, protein 123. +Oligoclonal bands.
-MRI brain 06/01/23: Mild signal alteration in the bilateral cerebral white matter, right middle cerebellar peduncle, and upper cervical spinal cord. These findings would be considered most suspicious for demyelination given the clinical concern for
multiple sclerosis. Postcontrast enhancement of the lesion in the upper cervical spinal cord suggesting active demyelination.
-Send out tests for NMO/MOG antibodies are negative.
I. Positive bands consistent with demyelinating disease, multiple sclerosis. Likely flare of new demyelinating disease. Testing for NMO/MOG antibodies is negative. Completed 5 days of IV methylprednisone.
Plan
PLEX initiated, complicated by thrombocytopenia and low fibrinogen. 06/12/23 is day 5 of 5.
Continue oral prednisone taper as ordered.
Continue gabapentin 400mg HS for sleep.
PT/OT evaluations
DVT prophylaxis
Cyanocobalamin replacement for B12 level <400.
Continue vitamin D3 replacement.
Patient and his mom have selected [facility] as his DMT, will initiate this process with our office.
Patient will need to eventually follow-up with Neurology as an outpatient in about 4 weeks, may see the TELEPHONE SERVICE ADVISER or one of the physicians. Also provided patient with contact info for [facility] to see an MS specialists as an outpatient, has an
appointment scheduled this month.
Subjective/Objective
Subjective Data
Date of Service: June 12, 2023
No new changes
Objective Data
Vital Signs
Temp Pulse Resp BP Pulse Ox
36.6 C 95 18 167/99 97
06/12/23 08:16 06/12/23 08:16 06/12/23 08:16 06/12/23 08:16 06/12/23 08:16
Lab Results
06/12/23 07:26
PT 14.5 Sec (11.4-14.6) 06/05/23 12:12
INR 1.15 06/05/23 12:12
APTT 21.9 Sec (23.4-35.0) L 06/05/23 12:12
Sodium 137 mmol/L (135-145) 06/11/23 08:32
Potassium 4.2 mmol/L (3.5-5.1) 06/11/23 08:32
BUN 22 mg/dl (9-20) H 06/11/23 08:32
Glucose 104 mg/dl (70-99) H 06/11/23 08:32
Calcium 9.5 mg/dl (8.4-10.2) 06/11/23 08:32
Whole Bld Vitamin B1 157 nmol/L (70-180) 05/31/23 09:03
Vitamin B12 387 pg/ml (239-931) 05/31/23 09:03
Patient Allergies
No Known Allergies Allergy (Unverified 05/18/23 16:12)
Review of Systems
-
History Source: Patient
All other systems: Reviewed and negative
Physical Exam
-
General: Well Developed, Well Nourished and No Apparent Distress
Eyes: No Ptosis and PERRLA
HEENT: Normocephalic and Atraumatic
Neck: Full Range of Motion
Respiratory: No Dyspnea
Cardiac: No JVD
GI: Non-distended
Extremities: No Clubbing, No Cyanosis and No Edema
Psych: Unremarkable
Extended Neurological Exam
Mood & Affect: Mood Unremarkable and Affect Unremarkable
Attention Span & Concentration: Awake, Alert, Interactive and No Difficulty with 2 Step Request
Memory: Unremarkable
Tremor: Hand Tremor Absent and Head Tremor Absent
Involuntary Movement: None
Speech: Quality Unremarkable, Quantity Unremarkable and Rate of Production Unremarkable
Cranial Nerve II: Left Eye: Pupillary Size Unremarkable and Visual Rivers Grossly Intact
Cranial Nerve II: Right Eye: Pupillary Size Unremarkable and Visual Rivers Grossly Intact
Cranial Nerves III, IV, : Extraocular Movement: Grossly Intact
Cranial Nerve VII: Facial Symmetry: Normal Facial Symmetry
Cranial Nerve VIII: Hearing: Unremarkable Hearing to Normal Conversational Volume
Cranial Nerve XI: Shoulder Shrug: Unremarkable
Cranial Nerve XII: Tongue Protusion: Midline
Muscle Strength, Overall: Reduced on Right (RLE hip flexion/ext 4/5)
Muscle Bulk & Tone: Bulk Unremarkable and Tone Unremarkable
Pronator Drift: No Drift in Upper Extremities
Coordination: [id number] Testing Unremarkable
Gait & Station: Up from Seated Without Problem, Romberg Test Positive and Other (gait unsteady)
Data Reviewed
-
Labs: Report Reviewed
Reviewed with: Physician and Patient
Old Records: Summarized
Past History
Past History
ED Past Medical History: Other (Multiple sclerosis May 2023)
ED Past Surgical History: None
Social History
Tobacco: Non-smoker
Alcohol: None
Drug: None
Personal: Single
Living: with family
Employment: Employed
Family History
Family History: Other (Reviewed and noncontributory)
Medications
-
Medications:
Generic Name Dose Route Start Last Admin
Trade Name Freq PRN Reason Stop Dose Admin
Acetaminophen 650 mg 06/02/23 13:04 06/10/23 15:39
Acetaminophen 325 Mg Tablet PO 06/30/23 13:03 650 mg
Q6HPRN PRN Administration
mild pain/ fever>100.5F
Amlodipine Besylate 5 mg 06/03/23 14:00 06/11/23 08:42
Amlodipine 5 Mg Tablet PO 07/01/23 13:59 5 mg
DAILY YOHANA Administration
Cholecalciferol 25 mcg 06/01/23 08:00 06/11/23 08:42
Cholecalciferol (Vitamin D3) 25 Mcg Tablet (1,000 Units) PO 06/29/23 07:59 25 mcg
DAILY YOHANA Administration
Cyanocobalamin 1,000 mcg 06/01/23 10:00 06/11/23 08:42
Cyanocobalamin 1,000 Mcg Tablet PO 06/29/23 09:59 1,000 mcg
DAILY YOHANA Administration
Dextrose 12.5 grams 06/01/23 22:00
Dextrose 50% (0.5 Grams/Ml) 50 Ml Syringe IV 06/29/23 21:59
[id number] PRN
hypoglycemia
Protocol
Enoxaparin Sodium 40 mg 05/31/23 18:00 06/11/23 17:24
Enoxaparin Sodium 40 Mg/0.4 Ml Syringe SC 06/28/23 17:59 40 mg
QPM YOHANA Administration
Gabapentin 400 mg 06/05/23 22:00 06/11/23 21:20
Gabapentin 400 Mg Capsule PO 07/03/23 21:59 400 mg
HS YOHANA Administration
Glucagon 1 mg 06/01/23 22:00
Glucagon 1 Mg Vial IM 06/29/23 21:59
PRN PRN
hypoglycemia - no IV access
Protocol
Hydralazine HCl 10 mg 06/04/23 11:42 06/09/23 18:41
Hydralazine 20 Mg/Ml Vial IV 06/30/23 09:49 10 mg
Q4HPRN PRN Administration
SBP>150
Albumin Human 12.5 grams in 250 mls @ 1,375 mls/hr 06/11/23 11:00
Albumin 5% INTRACATH
.Q8M YOHANA
Insulin Aspart 0 units 06/02/23 07:30 06/11/23 17:24
Insulin Aspart Low Resistance 300 Units/3 Ml Pen.Injctr SC 06/30/23 07:29 1 units
AC YOHANA Administration
Protocol
Melatonin 3 mg 06/05/23 20:00 06/07/23 23:57
Melatonin 3 Mg Tablet PO 07/03/23 19:59 3 mg
HSPRN PRN Administration
insomnia
Pantoprazole Sodium 40 mg 06/01/23 10:00 06/11/23 08:42
Pantoprazole 40 Mg Delayed Release Tablet PO 06/29/23 09:59 40 mg
DAILY YOHANA Administration
Sodium Chloride 0 flush 05/31/23 16:00 06/05/23 08:09
Sodium Chloride 0.9% (Flush) Syringe IV 06/28/23 15:59 2 flush
PER PROTOCOL YOHANA Administration
[2023-06-12] MEDS: NOVOLOG FLEXPEN-LOW RESISTANCE 1 UNITS SC ×2 (09:15→17:39)
[2023-06-12] MEDS: NORVASC 5 MG PO (09:15)
[2023-06-12] MEDS: PROTONIX 40 MG PO (09:16)
[2023-06-12] MEDS: VITAMIN D3 (cholecalciferol) 25 MCG PO (09:16)
[2023-06-12] MEDS: VITAMIN B-12 1000 MCG PO (09:16)
[2023-06-12] MEDS: APRESOLINE 10 MG IV (09:16)
[2023-06-12] MEDS: DELTASONE 10 MG PO (09:16)
[2023-06-12 09:22] LABS: ALT (SGPT) 75 U/L (0-50); AST (SGOT) 32 U/L (17-59); Albumin 3.5 g/dl (3.5-5.0); Alkaline Phosphatase 61 U/L (38-126); Blood Urea Nitrogen 26 mg/dl (9-20); Calcium 9.2 mg/dl (8.4-10.2); Carbon Dioxide 31 mmol/L (22-30); Chloride 100 mmol/L (98-107); Estimated Creatinine Clearance > 125 ml/min; Glucose 103 mg/dl (70-99); Magnesium 2.1 mg/dl (1.6-2.3); Potassium 4.3 mmol/L (3.5-5.1); Sodium 137 mmol/L (135-145); Total Bilirubin 1.2 mg/dl (0.2-1.3); Total Protein 5.1 g/dl (6.3-8.2); eGFR > 60.00
[2023-06-12 12:19] LABS: Glucose - Point of Care 125 mg/dl (70-99)
[2023-06-12] MEDS: NOVOLOG FLEXPEN-LOW RESISTANCE SC (12:31)
[2023-06-12 13:38] VITALS: BP 162/96
--- NOTE | 2023-06-12 13:39 | W.PN.HOSP.TC ---
Today's Communication/Plan
-
PLEX in am
follow labs
PT
Discharge planning
Assessment / Plan
Assessment / Plan
Impression/plan:
52 years old male with no prior medical history who presents with dizziness as well as right lower extremity weakness
Extensive workup including CSF with positive oligoclonal bands, imaging consistent with demyelinating process.
Completed 5-day course of IV Solu-Medrol with no significant improvement of the right lower extremity weakness
Has been transitioned to oral steroids with prednisone with plan of taper over next 10 days
Initiated on plasmapheresis with plan for 5 sessions every other day. Monitor CBC/BMP closely. Replete fibrinogen and platelets.
B12 initiated by neurology
Continue gabapentin as per neurology.
Outpatient neurology follow-up with consideration of disease modifying treatment options.
Anticipated Discharge: 24 - 48 hours
Subjective/Interval History
-
Date of Service: June 12, 2023
Objective Data
-
Labs:
Laboratory Results
06/12/23
07:26
WBC 5.4
Hgb 15.0
Hct 42.3
Plt Count 85 L D
Sodium 137
Potassium 4.3
Chloride 100
Carbon Dioxide 31 H
BUN 26 H
Creatinine 0.6 L
Glucose 103 H
Calcium 9.2
Total Bilirubin 1.2
AST 32
ALT 75 H
Alkaline Phosphatase 61
Vital Signs:
Vital Signs
Temp Pulse Resp BP Pulse Ox
97.8 F 95 18 162/96 97
06/12/23 08:16 06/12/23 09:16 06/12/23 08:16 06/12/23 13:38 06/12/23 08:16
I&O
06/11/23 06/12/23 06/13/23
06:59 06:59 06:59
Intake Total 1740 / 1740 1400 / 1400
Balance 1739
Physical Exam
-
General: Well Developed and No Apparent Distress
HEENT: Normocephalic, Atraumatic and Moist Mucous Membranes
Respiratory: Clear to Auscultation
Cardiac: Regular Rhythm and S1/S2; Negative Murmur, Rub or Gallop
GI: Soft, Nontender, Nondistended and Normal Bowel Sounds; Negative Organomegaly
Rectal: Deferred by Provider
Musculoskeletal: No Clubbing, No Cyanosis and No Edema
Skin: Negative Rash
Neuro: Nonfocal/Grossly Intact
[2023-06-12 15:00] VITALS: BP 150/96
[2023-06-12 17:04] LABS: Glucose - Point of Care 152 mg/dl (70-99)
[2023-06-12] MEDS: LOVENOX 40 MG SC (17:40)
[2023-06-12 21:43] LABS: Glucose - Point of Care 138 mg/dl (70-99)
[2023-06-12 23:16] VITALS: BP 147/88
[2023-06-12] MEDS: NEURONTIN 400 MG PO (23:22)
[2023-06-12] MEDS: MELATONIN 3 MG PO (23:22)
[2023-06-13 01:51] LABS: IgA 69 mg/dl (70-400); IgG 356 mg/dl (700-1600); IgM 32 mg/dl (40-230)
[2023-06-13 06:18] LABS: % Eosinophils 1.7 % (0-6); % Immature Granulocytes 2.3 % (0-0.5); % Lymphocytes 15.7 % (20.5-51.1); % Monocytes 7.4 % (1.7-9.3); % Neutrophils 72.9 % (42.2-75.2); Absolute Eosinophils 0.1 10^3/uL (0-0.7); Absolute Immature Granulocytes 0.1 10^3/uL (0-0.05); Absolute Lymphocytes 0.7 10^3/uL (1.2-3.4); Absolute Monocytes 0.4 10^3/uL (0.1-0.6); Absolute Neutrophils 3.4 10^3/uL (1.4-6.5); Hematocrit 37.4 % (39.0-52.0); Hemoglobin 13.5 g/dL (13.0-18.0); Mean Corp Hgb Conc. 36.1 g/dL (33.0-37.0); Mean Corpuscular Hgb 30.3 pg (27.0-31.0); Mean Platelet Volume 9.6 fL (7.4-10.4); Nucleated Red Blood Cells % 0 % (-); Platelet Count 87 10^3/uL (130-400); Red Blood Cell Count 4.45 10^6/uL (4.70-6.10); Red Cell Dist. Width 13.2 % (11.5-14.5); White Blood Cell Count 4.7 10^3/uL (4.8-10.8)
[2023-06-13 06:25] LABS: Fibrinogen 192 MG/DL (199-459)
[2023-06-13 06:47] LABS: ALT (SGPT) 83 U/L (0-50); AST (SGOT) 28 U/L (17-59); Albumin 3.1 g/dl (3.5-5.0); Alkaline Phosphatase 55 U/L (38-126); Blood Urea Nitrogen 23 mg/dl (9-20); Calcium 8.5 mg/dl (8.4-10.2); Carbon Dioxide 26 mmol/L (22-30); Chloride 103 mmol/L (98-107); Estimated Creatinine Clearance > 125 ml/min; Glucose 106 mg/dl (70-99); Sodium 133 mmol/L (135-145); Total Protein 4.8 g/dl (6.3-8.2); eGFR > 60.00
[2023-06-13 07:15] VITALS: BP 143/84
[2023-06-13 07:46] LABS: Glucose - Point of Care 107 mg/dl (70-99)
[2023-06-13] MEDS: NOVOLOG FLEXPEN-LOW RESISTANCE SC ×3 (07:48→17:21)
[2023-06-13] MEDS: VITAMIN D3 (cholecalciferol) 25 MCG PO (08:41)
[2023-06-13] MEDS: NORVASC 5 MG PO (08:41)
[2023-06-13] MEDS: PROTONIX 40 MG PO (08:41)
[2023-06-13] MEDS: VITAMIN B-12 1000 MCG PO (08:41)
--- NOTE | 2023-06-13 11:39 | W.PN.ONC ---
Addendum entered and electronically signed by Mikey Garcia MD 06/13/23 12:42:
Interventional radiology consulted for removal of dialysis catheter.
Original Note:
Today's Communication / Plan
-
Continue PLEX QD x5. Final treatment today
Monitor fibrinogen daily
06/12 Fibrinogen 192
Thrombocytopenia is common w/ PLEX
06/12 PLT 87, monitor for bleeding
Update CBC after treatment
Daily labs: CBC, CMP, calcium, Mag, fibrinogen - ordered
Removal of catheter per Neurology
We will follow.
Impression
Impression
Weakness secondary to suspected demyelinating process - transverse myelitis, MS, NMO, etc; limited improvement on high dose steroids
Subjective/Objective
Subjective/Objective
Patient is resting comfortably in bed. Plasmapheresis treatment in progress. [facility] RNs at bedside. He reports some discomfort/weakness of the right leg/knee. He is inquiring about removal of pheresis catheter.
Vital Signs:
Vital Signs
Temp Pulse Resp BP Pulse Ox
98.0 F 86 16 143/84 98
06/13/23 07:15 06/13/23 08:41 06/13/23 07:15 06/13/23 08:41 06/13/23 07:15
physical exam unchanged.
Lab Results:
Laboratory Data
WBC 4.7 10^3/uL (4.8-10.8) L 06/13/23 05:54
Hgb 13.5 g/dL (13.0-18.0) 06/13/23 05:54
Plt Count 87 10^3/uL (130-400) L 06/13/23 05:54
PT 14.5 Sec (11.4-14.6) 06/05/23 12:12
INR 1.15 06/05/23 12:12
APTT 21.9 Sec (23.4-35.0) L 06/05/23 12:12
eGFR > 60.00 04/08/24 05:54
[2023-06-13 11:49] LABS: Glucose - Point of Care 102 mg/dl (70-99)
--- NOTE | 2023-06-13 12:42 | CM ---
Reviewed the chart notes. Plan is for PLEX QOD x 5 treatments. Patient received 5th and final dose today. CM continues to be available to patient/family and is monitoring medical plan for needs at discharge.
Plan: Discharge to home with outpatient PT per recommendations from PT.
--- NOTE | 2023-06-13 14:02 | PN.IRAD.UPD ---
Update Note - IRAD
- -
Cleaned right sided Temp HD cath with chloraprep and removed. Site dressed with gauze and a primapore.
Misha Beebe RT(R)()
--- NOTE | 2023-06-13 14:38 | W.PN.HOSP.TC ---
Addendum entered and electronically signed by Erasmo Deleon MD 06/13/23 20:37:
Attending Addendum-
I saw and evaluated the patient. I reviewed the resident�s note and agree with findings and plan as documented in the resident�s note. continues to feel significant improvement in strength and balance. last dose of PLEX this am. continues to have
b/l hands pins and needles sensation. Full 12 point ROS reviewed and negative except as documented Exam: GEN NAD heart RRR lungs clear and soft LE trace b/l edema Neuro AAO x 3 MS 4+/5 RLE 5/5 LUE LLE RUE sensation intact, PEERLA, neck supple RU
chest wall central like site- CDI bandaged Plan:
# Probable MS- NMO MOGAD - neg- completed IV steroids 5 days. completed PLEX QOD / started on 06/04-->06/12. monitor labs closely. seen by PT recommending home with OP PT. for PO steroid taper over 10 days
# Leukopenia, thrombocytopenia- from PLEX, will resolve over time, no signs of bleeding
# Peripheral Neuropathy- cont gabapentin but not that effective, will taper as OP and follow up closely in clinic
# Hyperkalemia- resolved- repeat BMP in am
# Hyperglycemia- likely steroid induced, cont SSI, Hba1c 4.7 cont to monitor while on steroids
# 1 cm Adrenal Adenoma- f/u as OP, will d/w patient and family
# Hyponatremia- resolved, repeat BMP in am
# DVT proph- lovenox
# GI proph- cont PPI
Dispo- DC to home in am
Time spent coordinating care, review of plan of care with resident, review of records, med rec, consults, notes, labs, rads, d/w nursing, family - 55 mins
Original Note:
Today's Communication/Plan
-
Last session of plasmapheresis today
Monitor CBC, CMP, calcium, fibrinogen,, magnesium at a.m.
Discharge home tomorrow as per PT eval
Assessment / Plan
Assessment / Plan
52-year-old with no significant past medical history presents with right lower extremity weakness/falls at home since 05/28/2023. Was evaluated and diagnosed with multiple sclerosis.
IMPRESSION
Right lower extremity weakness
Hyperglycemia
Essential hypertension
Adrenal adenoma
PLAN
#Right lower extremity weakness
Workup is positive for CSF positive oligoclonal bands, consistent with demyelinating process
Completed Solu-Medrol 1g IV 5 bags, with no significant improvement of the right lower extremity weakness , transitioned to oral steroids prednisone taper.
Patient initiated on plasmapheresis for 5 sessions, today is his last session.
Oncology on board.
Platelets 87 today
Monitor daily labs, CBC, CMP, calcium, mag, fibrinogen
PT eval-discharge to home tomorrow
Outpatient neurology follow-up, for disease modifying treatment options
# Hyperglycemia
Most likely increase from steroid use.
A1c 4.7 06/01/2023
On SSI, monitor glucose level
# Essential hypertension
Continue amlodipine
#Adrenal adenoma
Follow-up as outpatient of
Monitor
#Protonix for GI prophylaxis
#Continue gabapentin 400 mg at bedtime
DVT prophylaxis-Lovenox
Anticipated Discharge: Within 24 hours
Subjective/Interval History
-
Date of Service: June 13, 2023
Patient is able to ambulate without the help of walker today, gait is unsteady. Patient reports some discomfort in the right knee.
Objective Data
-
Labs:
Laboratory Results
06/13/23
05:54
WBC 4.7 L
Hgb 13.5
Hct 37.4 L
Plt Count 87 L
Sodium 133 L
Potassium 4.0
Chloride 103
Carbon Dioxide 26
BUN 23 H
Creatinine 0.5 L
Glucose 106 H
Calcium 8.5
Total Bilirubin 1.0
AST 28
ALT 83 H
Alkaline Phosphatase 55
Vital Signs:
Vital Signs
Temp Pulse Resp BP Pulse Ox
98.0 F 86 16 143/84 98
06/13/23 07:15 06/13/23 08:41 06/13/23 07:15 06/13/23 08:41 06/13/23 07:15
I&O
06/12/23 06/13/23 06/14/23
06:59 06:59 06:59
Intake Total 1400 / 1400 960 / 960
Balance 1400 / 1400 960 / 960
Review of Systems
-
All other systems: Reviewed and negative (Except as documented)
Physical Exam
-
General: Well Developed and Well Nourished
HEENT: Normocephalic and Atraumatic
Respiratory: Clear to Auscultation
Cardiac: Regular Rhythm and S1/S2
Musculoskeletal: No Clubbing, No Cyanosis and No Edema
Skin: Warm and Dry
Neuro: Awake, Alert, Oriented, AO x 3 and Other (Cranial nerves II to XII grossly intact, muscle strength right lower extremity-4 x 5, left lower extremity 5 x 5. Gait unsteady. Tingling bilateral upper extremities.)
Psych: Calm
[2023-06-13 15:11] VITALS: BP 165/97
[2023-06-13 17:14] LABS: Glucose - Point of Care 118 mg/dl (70-99)
[2023-06-13] MEDS: LOVENOX 40 MG SC (17:36)
[2023-06-13 18:46] LABS: Hepatitis B Surface Antigen Negative (Negative)
[2023-06-13 19:04] LABS: Hepatitis B Core Ab, Total Negative (Negative); Hepatitis B Surface Antibody Negative; Hepatitis C Antibody Negative (Negative)
[2023-06-13] MEDS: MELATONIN 3 MG PO (21:48)
[2023-06-13] MEDS: NEURONTIN 400 MG PO (21:48)
[2023-06-13 21:49] LABS: Glucose - Point of Care 149 mg/dl (70-99)
[2023-06-13 23:40] VITALS: BP 157/94
--- NOTE | 2023-06-14 00:56 | W.DCSUMMARY ---
Addendum entered and electronically signed by Erasmo Deleon MD 06/14/23 20:41:
Attending Addendum:
Read reviewed and agree. See same day progress note for additional details.
Maverick Deleon MD
Original Note:
Documented by User: Milan Haywood MD, Resident 06/14/23 16:43
Discharge Summary
Discharge Data
Date of Admission: 05/31/23
Date of Discharge: 06/14/23
-
Pending Results: Yes (csf fungal cultures)
Hospital Course
DISCHARGE DIAGNOSIS:
Multiple sclerosis/transverse myelitis
Hypertension
Right adrenal incidentaloma
HOSPITAL COURSE:
52-year-old male who presented to on 05/31/23 reporting abrupt onset RLE weakness and three falls at home starting on 05/28/23. Earlier this month starting on 05/06/23, patient experienced flu-like symptoms and dizziness and completed Cedfdinir and
steroids for treatment of otitis media and sinusitis. Patient also had a history of tingling in the peripheral upper extremities bilaterally, but no loss of sensation or weakness. CT head done on 05/18/2023 showed no evidence of intracranial
abnormality, positive for sinus mucosal disease. Thoracic spine MRI done on 05/31/2023 showed findings consistent with multifocal transverse myelitis. MRI brain on 06/01/2023 showed evidence of demyelination, signal alteration in bilateral cerebral
white matter, right cerebellar peduncle, upper cervical spinal cord, concern for multiple sclerosis, postcontrast enhancement of the lesion in the upper cervical spinal cord resting active demyelination.CSF 05/31/23: WBC 10, glucose 72, protein 123.
During the imaging studies, he was also diagnosed with right adrenal gland incidentaloma, and recommended to follow-up as outpatient. Patient tested positive for CSF oligoclonal bands 11, CSF WBC 10. NMO and MOGAD antibodies were negative
Patient was started on IV steroids with methylprednisolone for 5 days, and later an oral steroid taper over 10 days. Due to suboptimal response to IV steroids, decision was made to pursue plasmapheresis after discussing with the patient.
Plasmapheresis was started on 06/05/2023, a total of 5 sessions and yesterday was his last day. Patient was monitored daily with CBC, CMP, calcium, magnesium, fibrin was not due to risk of thrombocytopenia, bleeding with PLEX. Patient developed
hypofibrinogenemia and replacement fluid was changed from 100% albumin 5% to 50/ 50 FFP and albumin.
Patient was started on gabapentin, B12 supplementation. Due to steroid use the patient developed hyperglycemia and was started on SSI, and glucose monitoring.
Patient was also diagnosed with primary hypertension and was started on amlodipine.
Patient's right extremity weakness has recovered well. Outpatient neurology follow-up with consideration of disease modifying treatment options.
Discharge Plan
-
Patient Disposition: Home (Routine Discharge)
Discharge Diagnosis/Procedures: Multiple sclerosis/transverse myelitis
Condition: Good
Diet: No restrictions
Additional Activity: Physical therapy
Referrals:
NONE,* [Family Provider] -
Prescriptions:
New
gabapentin 400 mg Capsule
400 mg PO HS Qty: 30 1RF
cyanocobalamin (vitamin B-12) 1,000 mcg Tablet
1,000 mcg PO DAILY Qty: 30 0RF
amlodipine 5 mg Tablet
5 mg PO DAILY Qty: 30 0RF
Continued
cholecalciferol (vitamin D3) [Vitamin D3] 25 mcg (1,000 unit) Tablet,Chewable
25 mcg PO DAILY
multivit with min-folic acid 80 mcg Tablet,Chewable
1 tab PO DAILY
Discharge Orders:
Discharge Patient (As Directed); Ordered 06/14/23
Ordered By: Milan Haywood
Discharge Date and Time
Discharge Date/Time: 06/14/23 17:05
Print Language: [facility]

Documented by User: Erasmo Deleon MD 06/14/23 20:38
Discharge Summary
Discharge Data
Date of Admission: 05/31/23
Date of Discharge: 06/14/23
Discharge Plan
-
Patient Disposition: Home (Routine Discharge)
Discharge Diagnosis/Procedures: Multiple sclerosis/transverse myelitis
Condition: Good
Diet: No restrictions
Additional Activity: Physical therapy
Referrals:
NONE,* [Family Provider] -
Prescriptions:
New
gabapentin 400 mg Capsule
400 mg PO HS Qty: 30 1RF
cyanocobalamin (vitamin B-12) 1,000 mcg Tablet
1,000 mcg PO DAILY Qty: 30 0RF
amlodipine 5 mg Tablet
5 mg PO DAILY Qty: 30 0RF
Continued
cholecalciferol (vitamin D3) [Vitamin D3] 25 mcg (1,000 unit) Tablet,Chewable
25 mcg PO DAILY
multivit with min-folic acid 80 mcg Tablet,Chewable
1 tab PO DAILY
Discharge Orders:
Discharge Patient (As Directed); Ordered 06/14/23
Ordered By: Milan Haywood
Discharge Date and Time
Discharge Date/Time: 06/14/23 17:05
Print Language: [facility]
[2023-06-14 00:59] VITALS: BP 134/78
[2023-06-14 05:27] LABS: % Basophils 0.2 % (0-2); % Eosinophils 1.7 % (0-6); % Immature Granulocytes 1.3 % (0-0.5); % Lymphocytes 12.2 % (20.5-51.1); % Monocytes 7.5 % (1.7-9.3); % Neutrophils 77.1 % (42.2-75.2); Absolute Eosinophils 0.1 10^3/uL (0-0.7); Absolute Immature Granulocytes 0.1 10^3/uL (0-0.05); Absolute Lymphocytes 0.6 10^3/uL (1.2-3.4); Absolute Monocytes 0.4 10^3/uL (0.1-0.6); Absolute Neutrophils 3.7 10^3/uL (1.4-6.5); Hematocrit 36.2 % (39.0-52.0); Mean Corp Hgb Conc. 35.9 g/dL (33.0-37.0); Mean Corpuscular Hgb 30.4 pg (27.0-31.0); Mean Corpuscular Volume 84.8 fL (80.0-94.0); Mean Platelet Volume 9.9 fL (7.4-10.4); Nucleated Red Blood Cells % 0 % (-); Platelet Count 82 10^3/uL (130-400); Red Blood Cell Count 4.27 10^6/uL (4.70-6.10); Red Cell Dist. Width 13.5 % (11.5-14.5); White Blood Cell Count 4.8 10^3/uL (4.8-10.8)
[2023-06-14 05:31] LABS: Fibrinogen 246 MG/DL (199-459)
[2023-06-14 06:00] LABS: ALT (SGPT) 51 U/L (0-50); AST (SGOT) 25 U/L (17-59); Albumin 3.2 g/dl (3.5-5.0); Alkaline Phosphatase 60 U/L (38-126); Blood Urea Nitrogen 20 mg/dl (9-20); Calcium 8.8 mg/dl (8.4-10.2); Carbon Dioxide 25 mmol/L (22-30); Chloride 104 mmol/L (98-107); Estimated Creatinine Clearance > 125 ml/min; Glucose 113 mg/dl (70-99); Magnesium 1.8 mg/dl (1.6-2.3); Potassium 3.8 mmol/L (3.5-5.1); Sodium 135 mmol/L (135-145); Total Protein 4.9 g/dl (6.3-8.2); eGFR > 60.00
[2023-06-14 07:42] VITALS: BP 109/71
[2023-06-14 08:08] LABS: Glucose - Point of Care 135 mg/dl (70-99)
[2023-06-14] MEDS: NOVOLOG FLEXPEN-LOW RESISTANCE SC (08:22)
[2023-06-14] MEDS: PROTONIX 40 MG PO (08:33)
[2023-06-14] MEDS: VITAMIN B-12 1000 MCG PO (08:33)
[2023-06-14] MEDS: NORVASC 5 MG PO (08:33)
[2023-06-14] MEDS: VITAMIN D3 (cholecalciferol) 25 MCG PO (08:33)
--- NOTE | 2023-06-14 08:48 | W.PN.HOSP.TC ---
Addendum entered and electronically signed by Erasmo Deleon MD 06/14/23 20:40:
Attending Addendum-
I saw and evaluated the patient. I reviewed the resident�s note and agree with findings and plan as documented in the resident�s note. ready to go home no complaints. seen with famly present Full 12 point ROS reviewed and negative except as
documented Exam: GEN NAD heart RRR lungs clear and soft LE trace b/l edema Neuro AAO x 3 MS 4+/5 RLE 5/5 LUE LLE RUE sensation intact, PEERLA, neck supple RU chest wall inciion site CDI-no bleeding Plan:
# Probable MS- NMO MOGAD - neg- completed IV steroids 5 days. completed PLEX QOD 07/09 started on 06/04-->06/12. PT recommending home with OP PT. for PO steroid taper over 10 days
# Leukopenia, thrombocytopenia- from PLEX, will resolve over time, no signs of bleeding
# Peripheral Neuropathy- cont gabapentin but not that effective, will taper as OP and follow up closely in clinic
# Hyperkalemia- resolved- repeat BMP as OP
# Hyperglycemia- likely steroid induced, cont SSI, Hba1c 4.7 cont to monitor while on steroids
# 1 cm Adrenal Adenoma- f/u as OP, will d/w patient and family
# Hyponatremia- resolved, repeat BMP in am
Dispo- DC to home today f/u in residency clinic as advised
Time spent coordinating care, review of plan of care with resident, review of records, med rec, consults, notes, labs, rads, d/w nursing, family transition of care - 38 mins
Original Note:
Today's Communication/Plan
-
Discharge to home with follow up with Neurology and primary care.
Assessment / Plan
Assessment / Plan
52-year-old with no significant past medical history presents with right lower extremity weakness/falls at home since 05/28/2023. Was evaluated and diagnosed with multiple sclerosis.
IMPRESSION
Right lower extremity weakness
Hyperglycemia
Essential hypertension
Adrenal adenoma
PLAN
#Right lower extremity weakness
Workup is positive for CSF positive oligoclonal bands, consistent with demyelinating process
Completed Solu-Medrol 1g IV 5 bags, with no significant improvement of the right lower extremity weakness , transitioned to oral steroids prednisone taper.
Patient initiated on plasmapheresis for 5 sessions, today is his last session.
Oncology on board.
Platelets 87 today
Monitor daily labs, CBC, CMP, calcium, mag, fibrinogen
PT eval-discharge to home tomorrow
Outpatient neurology follow-up, for disease modifying treatment options
# Hyperglycemia
Most likely increase from steroid use.
A1c 4.7 06/01/2023
On SSI, monitor glucose level
# Essential hypertension
Continue amlodipine
#Adrenal adenoma
Follow-up as outpatient of
Monitor
#Continue gabapentin 400 mg at bedtime
Discharge to home today, with out-patient PT
Follow up with Neurology
follow up with a primary care
Anticipated Discharge: Today
Subjective/Interval History
-
Date of Service: June 14, 2023
Patient reports improvement in lower extremity weakness, still could feel the difference in strength between bilateral lower extremities, right side has not regained to the fullest extent. no acute overnight events.
Objective Data
-
Labs:
Laboratory Results
06/14/23
03:59
WBC 4.8
Hgb 13.0
Hct 36.2 L
Plt Count 82 L
Sodium 135
Potassium 3.8
Chloride 104
Carbon Dioxide 25
BUN 20
Creatinine 0.6 L
Glucose 113 H
Calcium 8.8
Total Bilirubin 1.0
AST 25
ALT 51 H
Alkaline Phosphatase 60
Vital Signs:
Vital Signs
Temp Pulse Resp BP Pulse Ox
98.0 F 93 16 109/71 95
06/14/23 07:42 06/14/23 08:33 06/14/23 07:42 06/14/23 08:33 06/14/23 07:42
I&O
06/13/23 06/14/23 06/15/23
06:59 06:59 06:59
Intake Total 960 / 960 2160 / 2160
Output Total
Balance 960 / 960 2158 / 2158
Review of Systems
-
All other systems: Reviewed and negative (Except as mentioned above)
Physical Exam
-
General: Well Developed and Well Nourished
HEENT: Normocephalic and Atraumatic
Respiratory: Clear to Auscultation
Cardiac: Regular Rhythm and S1/S2
Musculoskeletal: No Clubbing, No Cyanosis and No Edema
Skin: Warm and Dry
Neuro: Awake, Alert, Oriented, AO x 3 and Other (Cranial nerves II to XII grossly intact, muscle strength right lower extremity 4/5, left lower extremity 5/5. Gait is unsteady. Tingling bilateral upper extremities)
Psych: Calm
--- NOTE | 2023-06-14 09:23 | W.PN.NEURO.1 ---
Today's Communication / Plan
-
PLEX initiated, complicated by thrombocytopenia and low fibrinogen completed 5 days of therapy
Completed oral prednisone taper as ordered.
Continue gabapentin 400mg HS for sleep.
Neuro Assessment/Plan
Assessment
This is a 52-year-old male who presented to on 05/31/23 with report of abrupt onset RLE weakness and three falls at home starting on 05/28/23. Earlier this month starting on 05/06/23, patient experienced flu-like symptoms and dizziness and completed
Cedfdinir and steroids for treatment of otitis media and sinusitis.
-CT head 05/18/23: No acute intracranial abnormality. Paranasal sinus mucosal disease/sinusitis.
-Lumbar Spine MRI 05/31/23: Minimal degenerative disk and joint disease in the lumbar spine. No mass, fluid collection or abnormal enhancement on postcontrast imaging. Mild central canal stenosis at L4-5.
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 Differential includes the possibility of an infection, inflammation, spinal cord infarction or demyelinating process such as multiple
sclerosis and/or Lyme disease. Neoplasm much less likely however is included in the differential. No adjacent abnormal enhancement in the paraspinal soft tissues. Follow-up with contrast-enhanced brain and cervical spine MRI imaging is recommended
for complete evaluation. Small focal central disk herniation at T7-8 causing mild cord compression. No myelopathy at this level. 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 1 cm nodule in the right adrenal gland most consistent
with an adenoma.
-CSF 05/31/23: WBC 10, glucose 72, protein 123. +Oligoclonal bands.
-MRI brain 06/01/23: Mild signal alteration in the bilateral cerebral white matter, right middle cerebellar peduncle, and upper cervical spinal cord. These findings would be considered most suspicious for demyelination given the clinical concern for
multiple sclerosis. Postcontrast enhancement of the lesion in the upper cervical spinal cord suggesting active demyelination.
-Send out tests for NMO/MOG antibodies are negative.
I. Positive bands consistent with demyelinating disease, multiple sclerosis. Likely flare of new demyelinating disease. Testing for NMO/MOG antibodies is negative. Completed 5 days of IV methylprednisone.
Plan
PLEX initiated, complicated by thrombocytopenia and low fibrinogen completed 5 days of therapy
Completed oral prednisone taper as ordered.
Continue gabapentin 400mg HS for sleep.
PT/OT evaluations
DVT prophylaxis
Cyanocobalamin replacement for B12 level <400.
Continue vitamin D3 replacement.
Patient and his mom have selected Ofatumumab as his DMT, will initiate this process with our office.
Patient will need to eventually follow-up with Neurology as an outpatient in about 4 weeks, may see the DICE DEALER or one of the physicians. Also provided patient with contact info for [facility] to see an MS specialists as an outpatient, has an
appointment scheduled this month.
Subjective/Objective
Subjective Data
Date of Service: June 14, 2023
Patient reports improved right lower extremity function following last plasmapheresis.
Objective Data
Vital Signs
Temp Pulse Resp BP Pulse Ox
36.7 C 93 16 109/71 95
06/14/23 07:42 06/14/23 08:33 06/14/23 07:42 06/14/23 08:33 06/14/23 07:42
Lab Results
06/14/23 03:59
06/14/23 03:59
PT 14.5 Sec (11.4-14.6) 06/05/23 12:12
INR 1.15 06/05/23 12:12
APTT 21.9 Sec (23.4-35.0) L 06/05/23 12:12
Sodium 135 mmol/L (135-145) 06/14/23 03:59
Potassium 3.8 mmol/L (3.5-5.1) 06/14/23 03:59
BUN 20 mg/dl (9-20) 06/14/23 03:59
Glucose 113 mg/dl (70-99) H 06/14/23 03:59
Calcium 8.8 mg/dl (8.4-10.2) 06/14/23 03:59
Whole Bld Vitamin B1 157 nmol/L (70-180) 05/31/23 09:03
Vitamin B12 387 pg/ml (239-931) 05/31/23 09:03
Patient Allergies
No Known Allergies Allergy (Unverified 05/18/23 16:12)
Review of Systems
-
History Source: Patient
All other systems: Reviewed and negative
Physical Exam
-
General: Well Developed, Well Nourished and No Apparent Distress
Eyes: No Ptosis and PERRLA
HEENT: Normocephalic and Atraumatic
Neck: Full Range of Motion
Respiratory: No Dyspnea
Cardiac: No JVD
GI: Non-distended
Extremities: No Clubbing, No Cyanosis and No Edema
Psych: Unremarkable
Extended Neurological Exam
Mood & Affect: Mood Unremarkable and Affect Unremarkable
Attention Span & Concentration: Awake, Alert and Interactive
Memory: Unremarkable
Tremor: Hand Tremor Absent and Head Tremor Absent
Involuntary Movement: None
Speech: Quality Unremarkable, Quantity Unremarkable and Rate of Production Unremarkable
Cranial Nerve II: Left Eye: Pupillary Size Unremarkable and Visual Rivers Grossly Intact
Cranial Nerve II: Right Eye: Pupillary Size Unremarkable and Visual Rivers Grossly Intact
Cranial Nerves III, IV, : Extraocular Movement: Grossly Intact
Cranial Nerve VII: Facial Symmetry: Normal Facial Symmetry
Cranial Nerve VIII: Hearing: Unremarkable Hearing to Normal Conversational Volume
Cranial Nerve XI: Shoulder Shrug: Unremarkable
Muscle Bulk & Tone: Bulk Unremarkable and Tone Unremarkable
Coordination: Reaches for Objects without Difficulty
Gait & Station: Up from Seated Without Problem
Data Reviewed
-
Labs: Report Reviewed
Reviewed with: Nurse Practioner and Patient
Old Records: Summarized
Past History
Past History
ED Past Medical History: Other (Multiple sclerosis May 2023, Vitamin B12 deficiency)
ED Past Surgical History: None
Social History
Tobacco: Non-smoker
Alcohol: None
Drug: None
Personal: Single
Living: with family
Employment: Employed
Family History
Family History: Other (Reviewed and noncontributory)
Medications
-
Medications:
Generic Name Dose Route Start Last Admin
Trade Name Freq PRN Reason Stop Dose Admin
Acetaminophen 650 mg 06/02/23 13:04 06/10/23 15:39
Acetaminophen 325 Mg Tablet PO 06/30/23 13:03 650 mg
Q6HPRN PRN Administration
mild pain/ fever>100.5F
Amlodipine Besylate 5 mg 06/03/23 14:00 06/14/23 08:33
Amlodipine 5 Mg Tablet PO 07/01/23 13:59 5 mg
DAILY YOHANA Administration
Cholecalciferol 25 mcg 06/01/23 08:00 06/14/23 08:33
Cholecalciferol (Vitamin D3) 25 Mcg Tablet (1,000 Units) PO 06/29/23 07:59 25 mcg
DAILY YOHANA Administration
Cyanocobalamin 1,000 mcg 06/01/23 10:00 06/14/23 08:33
Cyanocobalamin 1,000 Mcg Tablet PO 06/29/23 09:59 1,000 mcg
DAILY YOHANA Administration
Dextrose 12.5 grams 06/01/23 22:00
Dextrose 50% (0.5 Grams/Ml) 50 Ml Syringe IV 06/29/23 21:59
[id number] PRN
hypoglycemia
Protocol
Enoxaparin Sodium 40 mg 05/31/23 18:00 06/13/23 17:36
Enoxaparin Sodium 40 Mg/0.4 Ml Syringe SC 06/28/23 17:59 40 mg
QPM YOHANA Administration
Gabapentin 400 mg 06/05/23 22:00 06/13/23 21:48
Gabapentin 400 Mg Capsule PO 07/03/23 21:59 400 mg
HS YOHANA Administration
Glucagon 1 mg 06/01/23 22:00
Glucagon 1 Mg Vial IM 06/29/23 21:59
PRN PRN
hypoglycemia - no IV access
Protocol
Hydralazine HCl 10 mg 06/04/23 11:42 06/12/23 09:16
Hydralazine 20 Mg/Ml Vial IV 06/30/23 09:49 10 mg
Q4HPRN PRN Administration
SBP>150
Insulin Aspart 0 units 06/02/23 07:30 06/14/23 08:22
Insulin Aspart Low Resistance 300 Units/3 Ml Pen.Injctr SC 06/30/23 07:29 Not Given
AC YOHANA
Protocol
Melatonin 3 mg 06/05/23 20:00 06/13/23 21:48
Melatonin 3 Mg Tablet PO 07/03/23 19:59 3 mg
HSPRN PRN Administration
insomnia
Pantoprazole Sodium 40 mg 06/01/23 10:00 06/14/23 08:33
Pantoprazole 40 Mg Delayed Release Tablet PO 06/29/23 09:59 40 mg
DAILY YOHANA Administration
Sodium Chloride 0 flush 05/31/23 16:00 06/05/23 08:09
Sodium Chloride 0.9% (Flush) Syringe IV 06/28/23 15:59 2 flush
PER PROTOCOL YOHANA Administration
[2023-06-14 11:38] LABS: Glucose - Point of Care 175 mg/dl (70-99)
[2023-06-14] MEDS: NOVOLOG FLEXPEN-LOW RESISTANCE 1 UNITS SC (12:55)
--- NOTE | 2023-06-14 13:34 | CM ---
Reviewed the chart notes. Patient being discharged to home today with outpatient therapy. The patient's mother will provide transportation. CM continues to be available to patient/family and is monitoring medical plan for needs at discharge.
Plan: Discharge to home today with outpatient PT follow-up.
[2023-06-14 15:29] VITALS: BP 143/89
--- NOTE | 2023-06-14 16:18 | W.DS.TRANS ---
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
-
Discharge Instructions:
Instructions:
Stand-Alone Forms:
Changes to Home Medications: No
Discharge Medications:
DC Medications w/original date entered in [employer]
cholecalciferol (vitamin D3) 25 mcg (1,000 unit) chewable tablet (Vitamin D3) 25 mcg PO DAILY Supplement 05/31/23
multivitamin with minerals-folic acid 80 mcg chewable tablet 1 tab PO DAILY Supplement 05/31/23
Home Medication Changes
Pending Results: No
--- NOTE | 2023-06-14 17:01 | PTCARENOTE ---
Rn quality coordinator-Family medicine doctor here writting scripts for new medications and physical therapy at home.
--- NOTE | 2023-06-14 17:12 | PTCARENOTE ---
Patient discharged home. Scripts for new medications and outpatient PT given by resident. Discharge instructions reviewed and IV removed by flow nurse Tory. Patient dressed and belongings gathered independently, patient taken down to family
member's car via staff escort and wheelchair.
== END 2023-06-14 17:05 | disposition home or self-care (01) | DRG 59 ==
LOC: 2 NORTH 15:02
PROVIDERS: Internal Medicine; Physician Assistant; Radiology Vascular & Interventional Radiology; Student in an Organized Health Care Education/Training Program; ADMITTING PHYSICIAN Family Medicine; CONSULT PHYSICIAN Internal Medicine Hematology & Oncology; CONSULT PHYSICIAN Physical Medicine & Rehabilitation; CONSULT PHYSICIAN Psychiatry & Neurology Neurology; EMERGENCY PHYSICIAN Emergency Medicine
PROC: 0JH63WZ Insertion of Totally Implantable Vascular Access Device into Chest Subcutaneous Tissue and Fascia, Percutaneous Approach (ICD-10-PCS; 2023-05-31)
DX: G35 Multiple sclerosis (principal); E87.1 Hypo-osmolality and hyponatremia; G95.20 Unspecified cord compression; E27.8 Other specified disorders of adrenal gland
CPT/HCPCS: 36556; 70553; 72072; 72100; 72157; 72158; 76937; 77001; 80048; 80053; 82040; 82042; 82077; 82306; 82607; 82784; 82945; 82962; 83036; 83735; 83873; 83916; 84155; 84157; 84165; 84425; 84443; 85025; 85027; 85384; 85610; 85730; 86038; 86334; 86592; 86618; 86704; 86706; 86803; 86850; 86900; 86901; 87015; 87070; 87102; 87116; 87205; 87340; 87476; 87483; 88108; 89051; 93005; 96374; 97110; 97112; 97116; 97163; 97167; 97530; 99285; A9575; C1752; P9012; P9045; P9059

== ENCOUNTER 2023-06-16 10:03 | Emergency (ER) | payer OTHER, SELFPAY ==
[2023-06-16 10:27] VITALS: BP 124/81
[2023-06-16 10:53] LABS: % Basophils 0.3 % (0-2); % Eosinophils 0.1 % (0-6); % Immature Granulocytes 0.4 % (0-0.5); % Lymphocytes 4.4 % (20.5-51.1); % Monocytes 9.5 % (1.7-9.3); % Neutrophils 85.3 % (42.2-75.2); Absolute Lymphocytes 0.3 10^3/uL (1.2-3.4); Absolute Monocytes 0.7 10^3/uL (0.1-0.6); Absolute Neutrophils 6.4 10^3/uL (1.4-6.5); Hematocrit 37.9 % (39.0-52.0); Mean Corp Hgb Conc. 36.9 g/dL (33.0-37.0); Mean Corpuscular Hgb 30.4 pg (27.0-31.0); Mean Corpuscular Volume 82.4 fL (80.0-94.0); Mean Platelet Volume 9.3 fL (7.4-10.4); Nucleated Red Blood Cells % 0 % (-); Platelet Count 92 10^3/uL (130-400); Red Cell Dist. Width 13.5 % (11.5-14.5); White Blood Cell Count 7.5 10^3/uL (4.8-10.8)
[2023-06-16 11:05] LABS: Lactic Acid 1.9 mmol/L (0.7-2.0)
[2023-06-16 11:06] LABS: COVID-19 Antigen Negative (Negative)
[2023-06-16 11:13] LABS: ALT (SGPT) 56 U/L (0-50); AST (SGOT) 28 U/L (17-59); Albumin 3.8 g/dl (3.5-5.0); Alkaline Phosphatase 62 U/L (38-126); Blood Urea Nitrogen 14 mg/dl (9-20); Calcium 8.8 mg/dl (8.4-10.2); Carbon Dioxide 22 mmol/L (22-30); Chloride 100 mmol/L (98-107); Glucose 153 mg/dl (70-99); Potassium 4.1 mmol/L (3.5-5.1); Sodium 129 mmol/L (135-145); Total Bilirubin 2.9 mg/dl (0.2-1.3); eGFR > 60.00
[2023-06-16] MEDS: NSS 1000 IV (14:22)
[2023-06-16] MEDS: ZOFRAN 4 MG IV (14:30)
--- NOTE | 2023-06-16 15:41 | ED.GENMED ---
History of Present Illness
General
Chief Complaint: Abdominal Symptoms
Time Seen by Provider: 06/16/23 13:26
Travel History
Have you had any contact with someone who has COVID-19?: No
Do you have any symptoms of coronavirus? Fever > 100 degrees, chills, cough, shortness of breath, sore throat, loss of taste or smell, muscle aches, or headache?: No
History of Present Illness
History of Present Illness:
52-year-old male presents to the emergency department for evaluation of abdominal discomfort associated with vomiting and diarrhea beginning yesterday and worsening today. He is concerned because he just started on a new medication for recently
diagnosed MS and the symptoms began approxi-1 hour after the injection. He was discharged from the hospital 2 days ago after prolonged stay due to MS receiving immunoglobulin and IV steroids.
Past History
Past History
ED Past Medical History: Other (Multiple sclerosis May 2023, Vitamin B12 deficiency)
ED Past Surgical History: None
Social History
Tobacco: Non-smoker
Alcohol: None
Drug: None
Personal: Single
Living: with family
Employment: Employed
Family History
Family History: Other (Reviewed and noncontributory)
Review of Systems
Review of Systems
Allergies reviewed?: Yes
All Other Systems: ROS reviewed and negative except as documented in HPI and ROS
Phy Exam
Physical Exam
Physical Exam:
GEN: Well appearing, NAD, WDWN
HEENT: Oral mucosa moist, no scleral icterus
Cardiac: Regular rate
Lung: No respiratory distress, no tachypnea
Abdomen: Soft, nontender
MSK: No gross deformity or injuries
Skin: Good color, no pallor or jaundice, no rashes
Neuro: AO x3, moves all extremities freely
Psych: Calm, cooperative
Course
Orders/Labs/Results
Orders:
Orders
06/16/23 10:45
COVID-19 Antigen Urgent
Source: Nasal Swab
Complete Blood Count/With Diff Urgent
Comprehensive Metabolic Panel Urgent
Lactic Acid Urgent
Blood Culture Urgent
LUAN Source: Blood/Venous
Specimen Description:
Influenza A+B Rapid Molecular Urgent
LUAN Source: Nasal Swab
Specimen Description:
06/16/23 13:44
CT Abd/Pel (IV only)-DH only Urgent
Comment:
Reason For Exam: abd pain, diarrhea, vomiting
06/16/23 13:54
0.9% Sodium Chloride 1000 ml [Nss] 1,000 ml IV BOLUS
06/16/23 14:16
Blood Culture Urgent
LUAN Source: Blood/Venous
Specimen Description:
06/16/23 14:26
Ondansetron Injectable [Zofran] 4 mg IV NOW STA
Abnormal Lab Results
06/16/23
10:45
RBC 4.60 L 10^6/uL
(4.70-6.10)
Hct 37.9 L %
(39.0-52.0)
Plt Count 92 L 10^3/uL
(130-400)
Absolute Lymphs (auto) 0.3 L 10^3/uL
(1.2-3.4)
Absolute Monos (auto) 0.7 H 10^3/uL
(0.1-0.6)
Neutrophils % 85.3 H %
(42.2-75.2)
Lymphocytes % 4.4 L %
(20.5-51.1)
Monocytes % 9.5 H %
(1.7-9.3)
Sodium 129 L mmol/L
(135-145)
Creatinine 0.6 L mg/dL
(0.7-1.3)
Glucose 153 H mg/dl
(70-99)
Total Bilirubin 2.9 H D mg/dl
(0.2-1.3)
ALT 56 H U/L
(0-50)
Total Protein 6.0 L D g/dl
(6.3-8.2)
06/16/23 10:45
06/16/23 10:45
Vital Signs
Initial and Last Documented VS:
Initial Vital Signs
Temp Pulse Resp BP Pulse Ox
100.8 F H 120 18 124/81 98
06/16/23 10:27 06/16/23 10:27 06/16/23 10:27 06/16/23 10:27 06/16/23 10:27
Last Documented Vital Signs
Temp Pulse Resp BP Pulse Ox
100.8 F H 120 18 124/81 98
06/16/23 10:27 06/16/23 10:27 06/16/23 10:27 06/16/23 10:27 06/16/23 10:27
MDM/Problems Addressed
MDM/Problems Addressed:
Patient symptoms are likely on the basis of a viral syndrome in the setting of vomiting and diarrhea, certainly could be medication reaction but this it would be a quite rapid onset of a reaction occurring 1 hour after administration of medicine.
Patient discussed this with his neurologist unable determine after a period of home observation whether to continue with the medication for next week scheduled dose
*Critical Care Note
Total Time (30-74mins, 75-104mins- exclusive of procedures): Not Applicable
ED Attending Note
-
Portions of this chart may have been created with voice recognition software.� Occasional wrong word or��sound alike� substitutions may have occurred due to the inherent limitations of voice recognition software.
Discharge Plan
Departure
Patient Disposition: Home (Routine Discharge)
Date of Disposition: 06/16/23
Time of Disposition: 16:17
Patient with high blood pressure during this ER visit?: No
Discharge Problem:
Gastroenteritis
Instructions: Viral Gastroenteritis, Adult (DC)
Prescriptions:
New
ondansetron 4 mg tablet,disintegrating
4 mg PO TIDPRN PRN (Reason: nausea/vomiting) Qty: 10 0RF
No Action
gabapentin 400 mg Capsule
400 mg PO HS Qty: 30 1RF
cyanocobalamin (vitamin B-12) 1,000 mcg Tablet
1,000 mcg PO DAILY Qty: 30 0RF
amlodipine 5 mg Tablet
5 mg PO DAILY Qty: 30 0RF
Theragen Tablet
1 tab PO DAILY
acetaminophen [Tylenol Extra Strength] 500 mg Tablet
500 mg PO DAILYPRN PRN (Reason: mild pain)
acetaminophen [Tylenol Extra Strength] 500 mg Tablet
1,000 mg PO DAILYPRN PRN (Reason: severe pain)
cholecalciferol (vitamin D3) 25 mcg (1,000 unit) Tablet
25 mcg PO DAILY
Kesimpta Pen 20 mg/0.4 mL Pen Injector
20 mg SC WE
Patient Comments:
06/16/2023, received samples from Dr. Tovar's office; per pt., he is instructed to take this med. Qweek for the first 3 weeks and then proceed taking this med. monthly afterwards.
Referrals:
Erasmo Deleon MD [Family Provider] -
Interventions
Interventions:
*Risk Screen - Suicide Last Done: 06/16/23 14:22
*General Assessment Last Done: 06/16/23 14:22
*Neglect/Abuse Screening Last Done: 06/16/23 14:22
ED- Fall Risk Assessment Last Done: 06/16/23 14:22
*ED COVID-19 Vaccine History Last Done: 06/16/23 10:27
*Nursing Disposition Last Done: 06/16/23 16:18
XQ-Xqtxrd-Dwyulsxpuw Assessment Last Done: 06/16/23 14:22
Discharge Date and Time
Discharge Date/Time: 06/16/23 16:18
Print Language: SYRIAN
== END 2023-06-16 16:18 | disposition home or self-care (01) ==
LOC: EMR 10:03
PROVIDERS: Emergency Medicine; EMERGENCY PHYSICIAN Student in an Organized Health Care Education/Training Program; FAMILY PHYSICIAN Family Medicine
DX: K52.9 Noninfective gastroenteritis and colitis, unspecified (principal); Z11.52 Encounter for screening for COVID-19; G35 Multiple sclerosis; E53.8 Deficiency of other specified B group vitamins
CPT/HCPCS: 99285; 96361; 96374; 74177; 80053; 83605; 85025; 87040; 87502; 87811; Q9967

== ENCOUNTER 2023-07-04 11:08 | Outpatient (RCR) | payer OTHER, SELFPAY | END 2023-07-04 23:59 | disposition home or self-care (01) | LOC: RPT 11:08 | PROVIDERS: ATTENDING PHYSICIAN Student in an Organized Health Care Education/Training Program; FAMILY PHYSICIAN Family Medicine | DX: G37.3 Acute transverse myelitis in demyelinating disease of central nervous system (principal); G35 Multiple sclerosis; Z73.6 Limitation of activities due to disability; R42 Dizziness and giddiness; M62.81 Muscle weakness (generalized) | CPT/HCPCS: 97110; 97112; 97116; 97163; 97167; 97530; 97535 ==

== ENCOUNTER 2023-08-04 09:49 | Outpatient (RCR) | payer OTHER, SELFPAY | END 2023-08-04 23:59 | disposition home or self-care (01) | LOC: RPT 09:49 | PROVIDERS: ATTENDING PHYSICIAN Student in an Organized Health Care Education/Training Program; FAMILY PHYSICIAN Family Medicine | DX: G35 Multiple sclerosis (principal); Z73.6 Limitation of activities due to disability | CPT/HCPCS: 97110; 97112; 97116; 97530; 97535; 97537 ==

== ENCOUNTER 2023-08-31 10:12 | Outpatient (RCR) | payer OTHER, SELFPAY | END 2023-08-31 11:13 | disposition home or self-care (01) | LOC: RPT 10:12 | PROVIDERS: ATTENDING PHYSICIAN Student in an Organized Health Care Education/Training Program; FAMILY PHYSICIAN Family Medicine | DX: G37.3 Acute transverse myelitis in demyelinating disease of central nervous system (principal); G35 Multiple sclerosis; Z73.6 Limitation of activities due to disability | CPT/HCPCS: 97110; 97112; 97530 ==

== ENCOUNTER → 2025-02-18 12:50 | Outpatient (REF) | payer OTHER, SELFPAY | LOC: RAD 12:50 | PROVIDERS: ATTENDING PHYSICIAN Student in an Organized Health Care Education/Training Program | DX: D35.01 Benign neoplasm of right adrenal gland (principal) | CPT/HCPCS: 74178; Q9967 ==